=== PATIENT | female | born 1995 | race Caucasian/White ===

== ENCOUNTER 2022-02-23 08:44 | Outpatient (CLI) | payer MEDICAID, SELFPAY ==
[2022-02-23 11:52] LABS: Hepatitis C Virus Antibody* Negative (Negative)
[2022-02-24 15:28] LABS: Rapid Plasma Reagin (RPR) Non Reactive (Non Reactive)
== END 2022-02-23 08:45 | disposition home or self-care (01) ==
PROVIDERS: Visit Provider Advanced Practice Midwife
DX: Z34.83 Encounter for supervision of other normal pregnancy, third trimester (principal)
CPT/HCPCS: 86592; 86803; 86850

== ENCOUNTER 2022-04-23 09:40 | Outpatient (CLI) | payer MEDICAID, SELFPAY ==
--- OUTSIDE RECORDS SUMMARY | 2022-04-23 09:42 | XMS_ITS | Encounter Summary ---
:1995 Author Organization [facility] Address [address] [place] [address] Care Team Providers Name Role Phone Genesis Hampton MD Primary Care Provider Reason for Visit Reason Comments Annual Exam MOLE Encounter Details Date Type Department Care Team Description 03/30/2016 [facility] Hampton, Well adult exam (Primary Dx); Medicine Encounter for surveillance of contracept ba pills; [address] Pap smear for cervical cancer screening; [address] Screen for STD (sexually transmitted dis ease) [place] [address] [place] [phone] [id number] Social History Tobacco Use Types Packs/Day Years Used Date Smoking Tobacco: Former Alcohol Use Standard Drinks/Week Comments Yes 0 (1 standard drink = 0.6 oz pure alcoho l) rarely Alcohol Habits Answer Date Recorded How often do you have a drink containing alcohol? Not asked How many drinks containing alcohol do you have on a typical Not asked day when you are drinking? How often do you have six or more drinks on one occasion? No t asked Comment: rarely 03/16/2016 Sex Assigned at Date Recorded Not on file documented as of this encounter Last Filed Vital Signs Vital Sign Reading Time Taken Comments Blood Pressure 106/68 03/30/2016 10:24 AM CDT Pulse 80 03/30/2016 10:24 AM CDT Temperature - - Respiratory Rate - - Oxygen Saturation - - Inhaled Oxygen Concentration - - Weight 49.9 kg (110 lb) 03/30/2016 10:24 AM CDT Height 166 cm (5' 5.35) 03/30/2016 10:24 AM CDT Body Mass Index 18.11 03/30/2016 10:24 AM CDT documented in this encounter Progress Notes Geensis Hampton MD - 03/30/2016 10:37 AM CDT There are no exam notes on file for this visit. Renetta White is a 20 y.o. y.o.No obstetric history on file. female with Patient's last menstrualperiod was 03/21/2016 (exact date). here for well woman care. We discussed health maintenance issues and reviewed the main causes of mortality for her age group and strategies to reduce those risks. We reviewed risk factorsfor cardiovascular disease and osteoporosis and measures to optimize the reduction of these risks. Also we discussed breast awareness.Questions were answered to her satisfaction. She verbalized her understanding.Recommended Body Mass Index of24: Past History: has a past medical history of Constipation; Allergic rhinitis; and Scoliosis. has past surgical history that includes Cosmetic surgery (2005). family history includes Bipolar Disorder in her father; Cancer in her maternal grandmother; Osteoarthritis in her father and mother. Social History Substance Use Topics ??? Smoking status: Former Smoker ??? Smokeless tobacco: None ??? Alcohol Use: Yes Comment: rarely Allergies:Review of patient's allergies indicates no known allergies. Current medications: has a current medication list which includes the following prescription(s): cetirizine and desogestrel-ethinyl estradiol. ROS: Feeling well. No dyspneaor chest pain on exertion. No abdominal pain, change in bowel habits, black or bloody stools. No urinary tract symptoms. 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 A comprehensive review of system was done and was negative. OBJECTIVE: BP 106/68 mmHg Pulse 80 Ht 5' 5.35 (1.66 m) Wt 110 lb (49.896 kg) BMI 18.11 kg/m2 LMP 03/21/2016 (Exact Date), Estimated body mass index is 18.11 kg/(m^2) as calculated from the following: Height as of this encounter: 5' 5.35 (1.66 m). Weight as of this encounter: 110 lb (49.896 kg). SKIN: warm, elastic, humid. LYMPHATIC SYSTEM: no cervical, supraclavicular, axillary or inguinal abnormal nodes. LUNGS: no retraction, normal percussion,clear to ausculation. BREAST EXAM: normal without suspicious masses, skin or nipple changes or axillary nodes, symmetric fibrous changes in both upper outer quadrants, self- exam is taught and encouraged ABDOMEN: soft, depressible, non tender, no hepatosplenomegaly, no hernias. PELVIC EXAM:External genitalia: Gynecoid escutcheon. Vulva and vagina well estrogenized. Bartholyn's, [place]'s and urethral conduits without lesion or exudation. Speculum exam shows a healthy looking cervix to the naked eye. Noexudation or bleeding observed. Bimanual exam: Cervix closed, firm, non tender to motion. Uterus anterior, firm, regular, mobile, non tender to palpation. No adnexal masses or tenderness. Posterior cul de sac nofullness, no nodulations, no tenderness. LIMBS: no edema. ASSESSMENT: well woman PLAN: Orders Placed This Encounter ??? Pap Test Order ??? desogestrel-ethinyl estradiol (APRI) 0.15-30 MG-MCG tablet pap smear Genesis Hampton MD .................... 03/30/2016 10:37 AM documented in this encounter Plan of Treatment Not on filedocumented as of this encounter Procedures Procedure Name Priority Date/Time Associated Diagnosis Comme nts PAP TEST ORDER Routine 03/30/2016 11:35 Pap smear for Results for this AM CDT cervical cancer procedure ar e in screening the results section. ANATOMICAL PATH Routine 03/30/2016 11:35 Results for this LIQUID BASED AM CDT procedure are i n the results section. CHLAMYDIA & GC (14 Routine 03/30/2016 11:35 Screen for STD Res ults for this YEARS AND OLDER) AM CDT (sexually procedure a re in transmitted disease) the res ults section. documented in this encounter Results Pap Smear (03/30/2016 11:35 AM CDT) Specimen (Source) Anatomical Collection Method Collection Time Re ceived Time Location / / Volume Laterality 03/30/2016 11:35 AM CDT Narrative PN SOFT - 04/04/2016 2:17 PM CDT FINAL GYNECOLOGICAL CYTOLOGY REPORT Pathology #: [id number] ?Date Obtained: 03/30/2016 ? Date Received: 04/03/2016 INTERPRETATION/RESULTS: Negative for Intraepithelial Lesion or M alignancy. SPECIMEN ADEQUACY: Satisfactory for Evaluation. ??No endoce rvical cells/transformation zone component present. Verified on 04/04/2016 ??by ROSE MARIE HALE (electronic signature) CLINICAL NOTES: ?Abnormal bleeding: No, LMP: 8-2 4-16, Menstrual status: None ?Apply, Current form of therapy: None apply LIQUID BASED PAP SMEAR SPECIMEN TYPE: ?ROUTINE CERVICAL PAP TEST PLEASE NOTE: The pap smear is a screening test design ed to aid in the detection of cervical cancer and its pre cursor lesions. It is not a diagnostic procedure and gregor uld not be used as the sole means of detecting cervical cancer. Both false-positive and false-negative report s may occur. Performed at [facility] [address] [place] [address] Genesis Hampton MD LAB_1 Performing Organization Address City/State/ZIP Code Phon e Number PN SOFT [address] [place] [address] Chlamydia and GC STD (03/30/2016 11:35 AM CDT) [facility] Method Time Signature Chlamydia Negative Negative PN SOFT Trachomatis STD Comment: Test Performed by International Student Counselor Mediated Amplification CLIA Number [id number] N. gonorrhoeae STD Negative Negative PN SOFT Comment: Test Performed by International Student Counselor Mediated Amplification Performed at [facility], [address] ??[address] CLIA Number [id number] Source STD Cervix PN SOFT Comment: CLIA Number [id number] Specimen Anatomical Collection Method Collection Time Receive d Time (Source) Location / / Volume Laterality 03/30/2016 11:35 03/30/2016 3:38 AM CDT PM CDT Genesis Hampton MD LAB_1 Performing Organization Address [facility] Phon e Number PN SOFT [address] [place] [address] Pap Test Order (03/30/2016 11:35 AM CDT) Analysis Performed At [facility] Time Signature Pap Smear Collected PN SOFT Monolayer tracking test Specimen Anatomical Collection Method Collection Time Receive d Time (Source) Location / / Volume Laterality 03/30/2016 11:35 04/03/2016 6:00 AM CDT AM CDT Genesis Hampton MD LAB_1 Performing Organization Address [facility] Phon e Number PN SOFT [address] [place] [address] [phone] documented in this encounter Visit Diagnoses Diagnosis Well adult exam - Primary Routine general medical examination at a health care facility Encounter for surveillance of contracept ba pills Surveillance of previously prescribed co ntraceptive pill Pap smear for cervical cancer screening Screening for malignant neoplasm of the cervix Screen for STD (sexually transmitted dis ease) Screening examination for venereal disea se documented in this encounter Care Teams Boiler Out Relationship Specialty Start Date End Date Genesis Hampton MD PCP - General 05/08/12 [address] [place] [address] documented as of this encounter
--- OUTSIDE RECORDS SUMMARY | 2022-04-23 09:42 | XMS_ITS | Encounter Summary ---
:1995 Author Organization [facility] Address [address] [place] [address] Care Team Providers Name Role Phone Alfredo Hampton MD Primary Care Provider Reason for Visit Reason Comments Refill Encounter Details Date Type Department Care Team Description 08/09/2014 Refill [facility] Alfredo Welch MD Refill [address] [place] [address] [place], [place] [address] (Wo rk) Social History Tobacco Use Types Packs/Day Years Used Date Smoking Tobacco: Never Assessed Sex Assigned at Date Recorded Not on file documented as of this encounter Nursing Notes User, Amberly - 08/17/2014 3:48 PM CST APRI 0.15-30 mg-mcg per tablet [Pharmacy Med Name: APRI 28 DAY TABLET] - WARNING: This medication may be for short term use. - REFILL: 3 months (if warnings resolved; manual update required, due to unreadable sig) - RATIONALE: This is a courtesy refill. Patient is overdue for an office visit. This will be the last refill authorized by the protocol. - LAST QUALIFYING VISIT WITH ALFREDO HAMPTON: 06/23/2013 - NEXT SCHEDULED VISIT: None - MEDICATION STARTED: 04/25/2009 - LAST REFILLED ON: 06/23/2013, QTY: 84, Refills: 4, Sig: follow package instructions (changed) Powered by [employer], Reference: [id number], 08/09/2014 12:26:13 AM REHAB NURSE, Pool: PRLK REFILL ([id number]) Yudith Masters - 08/17/2014 3:48 PM CST Appointment letter sent Deb Brizuela, RN - 08/11/2014 4:41 PM CST REFILL APPOINTMENT NEEDED Please call patient and schedule appointment within 30 days. Medication has been renewed and sent to pharmacy for a 90 day supply. Comment: Last qualifying visit 06/23/13. Renewed medication per medication refill protocol. Requested Prescriptions Signed Prescriptions Disp Refills ??? desogestrel-ethinyl estradiol (APRI) 0.15-30 mg-mcg per tablet 84 tablet 0 Sig: Take 1 tablet by mouth daily (every 24 hours). Follow package directions. Authorizing Provider: ALFREDO HAMPTON Ordering User: DEB BRIZUELA B NURSE documented in this encounter Miscellaneous Notes Letter - Alfredo Hampton MD - 08/09/2014 12:00 AM CST Images from the original note were not included. [facility] [address] [facility] [address] Renetta White [address] [place] [address] [place] [address] August 17, 2014 Dear Renetta White, We received your request for the following prescription(s): Orders Placed This Encounter Medications ??? desogestrel-ethinyl estradiol (APRI) 0.15-30 mg-mcg per tablet Sig: Take 1 tablet by mouth daily (every 24 hours). Follow package directions. Dispense: 84 tablet Refill: 0 Your request was approved. You will need an appointment with your provider before your next refill. Please call [facility] at [phone] to schedule an appointment within 30 days. Thank you for choosing [facility] for your health care needs. Your [facility] Primary Care Team B NURSE documented in this encounter Plan of Treatment Not on filedocumented as of this encounter Visit Diagnoses Not on filedocumented in this encounter Care Teams Rail Express Clerk Relationship Specialty Start Date End Date Alfredo Hmapton MD PCP - General 05/08/12 [address] [place] [address] documented as of this encounter
--- OUTSIDE RECORDS SUMMARY | 2022-04-23 09:42 | XMS_ITS | Encounter Summary ---
:1995 Author Organization [facility] Address [address] [place] [address] Care Team Providers Name Role Phone Alfredo Hampton MD Primary Care Provider Reason for Visit Reason Onset Date Comments Refill 08/20/2018 desogestrel-ethinyl estradiol (APRI) 0.15-30 MG-MCG tablet Encounter Details Date Type Department Care Team Description 08/20/2018 [facility] Chris Hampton MD Refill Medicine [address] (desogestrel-ethinyl [address] estradiol (APRI) [place] [address] 0.15-30 MG-MCG tablet) [place], [place] [address] [phone] Social History Tobacco Use Types Packs/Day Years Used Date Smoking Tobacco: Former Smokeless Tobacco: Never Alcohol Use Standard Drinks/Week Comments Yes 1 (1 standard drink = 0.6 oz pure [...] documented as of this encounter Nursing Notes Interface, Out Surescripts Prov Query - 08/20/2018 2:46 PM CST desogestrel-ethinyl estradiol (APRI) 0.15-30 MG-MCG tablet Medication started: 10/07/2012 Last ordered by ALFREDO HAMPTON: 08/17/2018 (3 days ago) QTY: 84, Refills: 0, Sig: take 1 tab by mouth daily. (changed but equivalent) -> A duplicate request was processed on 08/17/2018. -> A courtesy refill was already recommended on 08/17/2018. -> Refill x 3 months (courtesy refill. overdue for an office visit) -> Calculate quantity and refills manually. They could not be estimated due to missing or unreadable information. Last qualifying visit: 07/12/2017 (with ALFREDO HAMPTON) Next scheduled visit: 2018 (in Family Practice) SBP: 110 mm Hg on 07/12/2017 DBP: 56 mm Hg on 07/12/2017 Powered by [employer], Reference: [id number], 08/20/2018 2:46:52 PM Arnaldo MONTES DE OCA: YUN REFILL WIZARD ADMIN ([id number]) TRON BEAM MACHINE WELDER SETTER Birgit Hurtado - 08/20/2018 2:45 PM CST Medications - Refill Request (able to re-order) Name of prescribing clinician: Alfredo Hampton MD Additional comments (related to the above concern): Pt is all out of medication. For this refill, patient would like it filled at the pharmacy listed in Meds & Orders. (Verify the pharmacy patient would like to use for this request is highlighted in blue in Pharmacy Selection under Meds & Orders) If there are questions regarding your request, is it okay to leave a detailed message on your voicemail? Yes (Advise caller that the PN call back number will end with [phone] or unknown) (Advise caller of turn around time is 2 business days for standard refills and 2 to 5 business days for controlled refills) Please route to: Refill Pool (P [id number]) [facility] [address] ONLY (P [id number]) TRON BEAM MACHINE WELDER SETTER documented in this encounter Plan of Treatment Not on filedocumented as of this encounter Visit Diagnoses Diagnosis Encounter for surveillance of contracept ba pills Surveillance of previously prescribed co ntraceptive pill documented in this encounter Care Teams Franchise Consultant Relationship Specialty Start Date End Date Alfredo Hampton MD PCP - General 05/08/12 [address] [place] [address] documented as of this encounter
--- OUTSIDE RECORDS SUMMARY | 2022-04-23 09:42 | XMS_ITS | Clinical Summary ---
:1995 Author Organization [facility] Address [address] [place] [address] Care Team Providers Name Role Phone Genesis Hampton MD Primary Care Provider Source Comments You are receiving this document as you are listed as the primary care provider,follow-up provider, or the patient has been referred to you for consultation.This is in compliance with the Medicare and Medicaid EHR Incentive Program,which states Providers who transition their patient to another setting of careor provider of care or refers their patient to another provider of care shouldprovide summarycare record for each transition of care or referral. [employer] Allergies Active Allergy Reactions Severity Noted Date Comments Nitrofurantoin Hives High 2018 Other Hives High 2018 Falls-MCR; pt mo m reported Medications Medication Sig Dispensed Refills Start Date End Date Status cetirizine (AKA Take 1 tablet by 0 09/21/2010 Active ZYRTEC) 10 MG tablet mouth daily as needed. LW Addl Instr:Indicated for: Allergies APRI 0.15-30 MG-MCG TAKE 1 TABLET BY 84 Tablet 0 10/08/2019 Active tabletIndications: MOUTH EVERY DAY Encounter for surveillance of contraceptive pills Resolved Problems Problem Noted Date Resolved Date Excessive or frequent menstruation 07/18/200907/12 Overview: Menorrhagia Immunizations Name Administration Dates Next Due 4vHPV (Gardasil) 04/03/2011, 11/22/2010, 09/21/2010 DTP 03/19/1994, 01/23/1994, 1993 DTaP 07/15/1996 HepB, Unspecified Formulation 07/15/1996, 1993, 1993 Hib, Unspecified Formulation 03/19/1994, 01/23/1994, 994 MMR 01/17/1995 OPV, Trivalent (Orimune or tOPV) 03/19/1994, 01/23/1994, 06/1994 TDAP (BOOSTRIX) 12/17/2014 Family History Medical History Relation Name Comments Bipolar Disorder Father Osteoarthritis Father back surgery Osteoarthritis Mother scoliosis Cancer Maternal Grandmother Dermatofibr osarcoma Relation Name Status Comments Father Alive Mother Alive Brother 1 Alive biological Brother 2 Alive 1/2 same dad Brother 3 Alive 1/2 same dad Maternal Grandmother Sister 1 Alive step Sister 2 Alive step Sister 3 Alive 1/2 same dad Social History Tobacco Use Types Packs/Day Years [...] Assigned at Date Recorded Not on file Last Filed Vital Signs Vital Sign Reading Time Taken Comments Blood Pressure 115/71 2018 4:11 PM PREPARATION SUPERVISOR CANNING Pulse 96 2018 4:11 PM PREPARATION SUPERVISOR CANNING Temperature 36.2 ??C (97.2 ??F) 09/21/2010 4:22 PM ORAL C: 3 6.2 C PREPARATION SUPERVISOR CANNING Respiratory Rate - - Oxygen Saturation - - Inhaled Oxygen Concentration - - Weight 48.9 kg (107 lb 14.4 2018 4:11 PM oz) PREPARATION SUPERVISOR CANNING Height 165.6 cm (5' 5.2) 2018 4:11 PM PREPARATION SUPERVISOR CANNING Body Mass Index 17.85 2018 4:11 PM PREPARATION SUPERVISOR CANNING Plan of Treatment Health Maintenance Due Date Last Done Comments Hep C Screening (Preventive 1993 Services) COVID-19 Vaccine (#1) 02/25/1994 HIV Screening (Preventive 2009 Services) Adult Preventive Visit 2020 2018, 07/12/2017, 03/30/2016 Pap 2021 2018, 07/12/2017, 03/30/2016, Additional history exists Influenza (#1) 2022 DTaP/Tdap/Td (6 - Tdap) 12/17/2024 12/17/2014, 07/15/1996, 03/19/1994, Additional history exists Zoster/Shingles (1 of 2) 2043 Hib Aged Out 03/19/1994, 01/23/1994, No longe r eligible 1993 based on patient 's age to complete this topic IPV (Polio) Aged Out 03/19/1994, 01/23/1994, No longe r eligible 1993 based on patient 's age to complete this topic HepB Completed 07/15/1996, 1993, 1993 HPV Vaccine Completed 04/03/2011, 11/22/2010, 09/21/2010 HepA Aged Out No longer eligib le based on patient 's age to complete this topic MCV4 Aged Out No longer eligib le based on patient 's age to complete this topic Pneumococcal Aged Out No longer eligib le based on patient 's age to complete this topic Insurance Payer Benefit Plan / Subscriber ID Effective Dates Phone Addre ss Type Group BCBS BCBS OUT OF [id number] 2017-[place] [address] [address] [place] [address] (Home) [place] [address] Renetta White Personal/Family Self [address] ([address]) [place] [phone] [place] (Work) [phone] Care Teams Cargo Services Coordinator Relationship Specialty Start Date End Date Genesis Hampton MD PCP - General 05/08/12 [address] [facility] [place] [phone]
--- OUTSIDE RECORDS SUMMARY | 2022-04-23 09:42 | XMS_ITS | Encounter Summary ---
:1995 Author Organization [facility] Address [address] [place] [address] Care Team Providers Name Role Phone Genesis Hampton MD Primary Care Provider Encounter Details Date Type Department Care Team Description 01/09/2021 emma Ly [phone] Social History Tobacco Use Types Packs/Day Years [...] on file documented as of this encounter Progress Notes FAMILY MEDICINEEMMA PROVIDER - 01/09/2021 12:00 AM CDT emma Treatment Plan Diagnosis Urinary Tract Infection Visit Date January 09, 2021 Renetta Sextone Date of : 89 Provider Jordyn Vang, Nurse Practitioner Note From Provider Oskar Jackson! So sorry to hear you're having symptoms of a bladder infection.?? I've sent a prescription for an antibiotic to your pharmacy. The medication that I prescribed for you should be taken with a full meal twice a day.??Also, remember to drink lots of fluids. We are here for you for any questions or concerns along the way, just Request a Call Back. Feel better soon!?? QUINTON Cobb Treatment Plan Since you have a bacterial infection, let's try an antibiotic. [facility] I've also listed a few of the best ways to soothe your discomfortand some additional self-care tipsto get you on the road to feeling better.If your symptoms don't improve after 3 days, or if you haveq uestions, please select Help to Request a Call Back andwe'll talk about your next steps for free. Order(s) cephalexin 500 mg capsule Take 1 capsule oral every twelve hours as directed for 7 days Note: Refills: None [facility] [address] [place] [address] Treatment Plan Self Care Tip Topics Avoid Caffeine Warm Packs Drink Water What to Expect If you follow the recommendations I made on the Treatment tab, your symptomsshould improve in about 3 days. If your symptoms don'timprove after 3 days, or if you have questions, please select Help toRequest a Call Back and we'll helpdetermine your next step for free. What to Watch Out For Give us a call if you experience: ??? High fever ??? Shaking chills ??? Worsening pain with urination ??? Severe pain in your back, abdomen or pelvis My Conditions, Orders, Allergies as of January 09, 2021 Standard condition list None Current orders cephalexin (cephalexin) Allergies None Layar Information [facility] [employer] We are an online clinic open 18/02. If you have any questions or comments about this visit, please call or email [email or web address]. documented in this encounter Plan of Treatment Not on filedocumented as of this encounter Visit Diagnoses Not on filedocumented in this encounter Care Teams Leach Cell Operator Relationship Specialty Start Date End Date Genesis Hampton MD PCP - General 05/08/12 [address] [place] [address] documented as of this encounter
--- OUTSIDE RECORDS SUMMARY | 2022-04-23 09:42 | XMS_ITS | Encounter Summary ---
:1995 Author Organization [facility] Address [address] [place] [address] Care Team Providers Name Role Phone Genesis [place] MD Primary Care Provider Reason for Visit Reason Comments Annual Exam Encounter Details Date Type Department Care Team Description 12/17/2014 [facility] [place], [facility] adult exam (Primary Dx); Medicine MD Screen for STD (sexually transmitted dis ease); [address] Con traception; [address] Screening cholesterol level; [place] [address] [place], [place] Screening for malignant neop lasm of the cervix; [phone] [id number] Need for Tdap vaccination [phone] (Wo rk) Social History Tobacco Use Types Packs/Day Years Used Date Smoking Tobacco: Never Assessed Sex Assigned at Date Recorded Not on file documented as of this encounter Last Filed Vital Signs Vital Sign Reading Time Taken Comments Blood Pressure 110/78 12/17/2014 10:30 AM CDT Pulse 90 12/17/2014 10:30 AM CDT Temperature - - Respiratory Rate - - Oxygen Saturation - - Inhaled Oxygen Concentration - - Weight 54.4 kg (120 lb) 12/17/2014 10:30 AM CDT Height 164.5 cm (5' 4.75) 12/17/2014 10:30 AM CDT Body Mass Index 20.12 12/17/2014 10:30 AM CDT documented in this encounter Progress Notes Genesis [place] MD - 12/17/2014 12:19 PM CDT Subjective: Renetta White is a 19 y.o. female and is here for a comprehensive physical exam. The patient reports no problems Past Medical History Diagnosis Date ??? Constipation ??? Allergic rhinitis ??? Scoliosis Patient Active Problem List Diagnosis Date Noted ??? Menorrhagia 07/18/2009 Class: Chronic Past Surgical History Procedure Laterality Date ??? Cosmetic surgery face after dog bite Family History Problem Relation Age of Onset ??? Osteoarthritis Mother scoliosis ??? Osteoarthritis Father back surgery ??? Cancer Maternal Grandmother Dermatofibrosarcoma History Social History ??? Marital Status: Single Spouse Name: N/A Number of Children: N/A ??? Years of Education: N/A Social History Main Topics ??? Smoking status: Former Smoker ??? Smokeless tobacco: None ??? Alcohol Use: Yes Comment: rarely ??? Drug Use: No ??? Sexual Activity: Partners: Male Other Topics Concern ??? 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 cetirizine (ZYRTEC) 10 mg tablet Take 1 tablet by mouth daily as needed. LW Addl Instr:Indicatedfor: Allergies PRN ??? desogestrel-ethinyl estradiol (APRI) 0.15-0.03 mg per tablet Take 1 tablet by mouth daily (every24 hours). Follow package directions. 84 tablet 4 No current facility-administered medications for this visit. No Known Allergies History: LMP: Patient's last menstrual period was 12/01/2014. menses are regular Last pap date: first Abnormal pap? no : 0 Para: 0 Do you take any herbs or supplements that were not prescribed by a doctor? no Are you taking calcium supplements? not applicable Are you taking aspirin daily? not applicable Review of Systems Do you have pain that bothers you in your daily life? no A comprehensive review of systems was negative. Objective: Vital Signs: BP 110/78 Pulse 90 Ht 5' 4.75 (1.645 m) Wt 120 lb (54.432 kg) BMI 20.12 kg/m2 LMP 12/01/2014 General Appearance: Alert, cooperative, no distress, appears stated age Head: Normocephalic, without obvious abnormality, atraumatic Eyes: PERRL, conjunctiva/corneas clear, EOM's intact, fundi benign, both eyes Ears: Normal TM's and external ear canals, both ears Nose: Nares normal, septum midline, mucosa normal, no drainage or sinus tenderness Throat: Lips, mucosa, and tongue normal; teeth and gums normal Neck: Supple, symmetrical, trachea midline, no adenopathy; thyroid: no enlargement/tenderness/nodules; no carotid bruit or JVD Back: Symmetric, no curvature, ROM normal, no CVA tenderness Lungs: Clear to auscultation bilaterally, respirations unlabored Chest Wall: No tenderness or deformity Heart: Regular rate and rhythm, S1 and S2 normal, no murmur, rub or gallop Breast Exam: No tenderness, masses, or nipple abnormality Abdomen: Soft, non-tender, bowel sounds active all four quadrants, no masses, no organomegaly Genitalia: Normal female without lesion, discharge or tenderness Rectal: Normal tone, no masses or tenderness; Extremities: Extremities normal, atraumatic, no cyanosis or edema Pulses: 2+ and symmetric all extremities Skin: Skin color, texture, turgor normal, no rashes or lesions Lymph nodes: Cervical, supraclavicular, and axillary nodes normal Neurologic: CNII-XII intact, normal strength, sensation and reflexes throughout Assessment: Healthy female exam. 19 year old first pap and pelvic exam Plan: 1. Diagnosis (ICD9) and Associated Orders ICD-9-CM ICD-10-CM 1. Well adult exam V70.0 Z00.00 2. Screen for STD (sexually transmitted disease) V74.5 Z11.3 Chlamydia and GC STD 3. Contraception V25.9 Z30.9 desogestrel-ethinyl estradiol (APRI) 0.15-0.03 mg per tablet 4. Screening cholesterol level V77.91 Z13.220 Basic Metabolic Panel Cholesterol Fraction-LDLD If Trig High 5. Screening for malignant neoplasm of the cervix V76.2 Z12.4 Pap Smear Order 2. Patient Counseling: --Nutrition: Stressed importance of moderation in sodium/caffeine intake, saturated fat and cholesterol, caloric balance, sufficient intake of fresh fruits, vegetables, fiber, calcium, iron, and 1 mg of folate supplement per day (for females capable of ). --Exercise: Stressed the importance of regular exercise. --Substance Abuse: Discussed cessation/primary prevention of tobacco, alcohol, or other drug use; driving or other dangerous activities under the influence; availability of treatment for abuse. --Sexuality: Discussed sexually transmitted diseases, partner selection, use of condoms, avoidance of unintended and contraceptive alternatives. --Injury prevention: Discussed safety belts, --Dental health: Discussed importance of regular tooth brushing, flossing, and dental visits. --Immunizations reviewed. 3. Follow up in one year documented in this encounter Plan of Treatment Not on filedocumented as of this encounter Procedures Procedure Name Priority Date/Time Associated Diagnosis Comme nts ANATOMICAL PATH Routine 12/17/2014 11:35 Results for this LIQUID BASED AM CDT procedure are i n the results section. PAP SMEAR ORDER Routine 12/17/2014 11:35 Screening for Results for this AM CDT malignant neoplasm procedure are in of the cervix the results section. CHLAMYDIA & GC (14 Routine 12/17/2014 11:35 Screen for STD Res ults for this YEARS AND OLDER) AM CDT (sexually procedure a re in transmitted disease) the res ults section. documented in this encounter Results Chlamydia & GC (12/17/2014 11:35 AM CDT) [facility] gist Method Time Signature Chlamydia Negative Negative HP CONVERSION Trachomatis STD Comment: Test Performed by Technician Inventory Specialist Mediated Amplification CLIA Number [id number] N. gonorrhoeae STD Negative Negative HP CONVERSI ON Comment: Test Performed by Technician Inventory Specialist Mediated Amplification Performed at [facility], [address] [place] [address] ??[address] CLIA Number [id number] Source STD Cervix HP CONVERSION Comment: CLIA Number [id number] Specimen Anatomical Collection Method Collection Time Receive d Time (Source) Location / / Volume Laterality 12/17/2014 11:35 12/17/2014 3:34 AM CDT PM CDT Genesis [place] MD LAB_1 Performing Organization Address City/State/ZIP Code Phon e Number HP CONVERSION Pap Smear (12/17/2014 11:35 AM CDT) Specimen (Source) Anatomical Collection Method Collection Time Re ceived Time Location / / Volume Laterality 12/17/2014 11:35 AM CDT Narrative HP CONVERSION - 12/24/2014 3:25 PM CDT Performed at [facility], [address] [place] [address] FINAL GYNECOLOGICAL CYTOLOGY REPORT Pathology #: [id number] ?Date Obtained: 12/17/2014 ? Date Received: 12/21/2014 INTERPRETATION/RESULTS: Negative for Intraepithelial Lesion or M alignancy. SPECIMEN ADEQUACY: Satisfactory for Evaluation. ??Endocervi guru cells/transformation zone component present. Verified on 12/24/2014 ??by MINIE BACCAM , CT(ASCP) (electronic signature) CLINICAL NOTES: ?Abnormal bleeding: No, LMP: 5-6 -15, Hormonal TX: Yes LIQUID BASED PAP SMEAR SPECIMEN TYPE: ?CERVICAL PAP ONLY PLEASE NOTE: The pap smear is a screening test design ed to aid in the detection of cervical cancer and its pre cursor lesions. It is not a diagnostic procedure and gregor uld not be used as the sole means of detecting cervical cancer. Both false-positive and false-negative report s may occur. ? End of Report Genesis [place] MD LAB_1 Performing Organization Address City/[facility] [[email or web address]] Code Phon e Number HP CONVERSION Pap Smear Order (12/17/2014 11:35 AM CDT) [facility] Method Time Signature Pap Smear Collected HP CONVERSION Monolayer tracking test Specimen Anatomical Collection Method Collection Time Receive d Time (Source) Location / / Volume Laterality 12/17/2014 11:35 12/21/2014 4:51 AM CDT AM CDT Narrative HP CONVERSION - 12/24/2014 3:21 PM CDT Performed at [facility], [facility] [place] [address] Genesis [place] MD LAB_1 Performing Organization Address City/State/ZIP Code Phon e Number HP CONVERSION documented in this encounter Visit Diagnoses Diagnosis Well adult exam - Primary Routine general medical examination at a health care facility Screen for STD (sexually transmitted dis ease) Screening examination for venereal disea se Contraception Unspecified contraceptive management Screening cholesterol level Screening for lipoid disorders Screening for malignant neoplasm of the cervix Need for Tdap vaccination Need for prophylactic vaccination with c ombined hbqbeedduq-[id number]-hkbaflwfz (DTP) vaccine documented in this encounter Care Teams Cytology Laboratory Manager Relationship Specialty Start Date End Date Genesis [place] MD PCP - General 05/08/12 [address] [place] [address] documented as of this encounter
--- OUTSIDE RECORDS SUMMARY | 2022-04-23 09:42 | XMS_ITS | Encounter Summary ---
:1995 Author Organization [facility] Address [address] [place] [address] Care Team Providers Name Role Phone Genesis [place] MD Primary Care Provider Reason for Visit Reason Comments Annual Exam Not Fasting Other New Partner Encounter Details Date Type Department Care Team Description 07/12/2017 [facility] [place], [facility] adult exam (Primary Dx); Medicine Encounter for surveillance of contracept ba pills; [address] Pap smear for cervical cancer screening; [address] Screen for STD (sexually transmitted dis ease) [place] [address] [place], [place] [phone] [address] Social History Tobacco Use Types Packs/Day Years [...] Sign Reading Time Taken Comments Blood Pressure 110/56 07/12/2017 1:10 PM ROUNDING MACHINE TENDER Pulse 60 07/12/2017 1:10 PM ROUNDING MACHINE TENDER Temperature - - Respiratory Rate - - Oxygen Saturation - - Inhaled Oxygen Concentration - - Weight 49.9 kg (110 lb) 07/12/2017 1:10 PM ROUNDING MACHINE TENDER Height 166.4 cm (5' 5.5) 07/12/2017 1:10 PM ROUNDING MACHINE TENDER Body Mass Index 18.03 07/12/2017 1:10 PM ROUNDING MACHINE TENDER documented in this encounter Progress Notes Nhung Figueroa RN - 07/31/2017 2:01 PM CST Dear Renetta, I am writing to let you know that your PAP result is negative. This means that your test result was normal. No cancer or pre-cancerous cells were seen. Based on current cervical cancer screening recommendations, your next PAP should be in 3 years. Continue to schedule your annual preventive exams for your overall health. If you have questions about cervical cancer screening or your test results, call [phone]. Sincerely, Nhung Figueroa RN on behalf of Dr. Dory Edwards, Computer Mechanic [facility] Cervical Cancer Screening and Management DING MACHINE TENDER Genesis [place] MD - 07/12/2017 1:15 PM CST Subjective: Renetta White is a 21 y.o. female and is here for a comprehensive physical exam. The patient reports no problems Past Medical History: Diagnosis Date ??? Allergic rhinitis ??? Constipation ??? Scoliosis Patient Active Problem List Diagnosis Date Noted ??? Excessive or frequent menstruation 07/18/2009 Overview Note: Menorrhagia Past Surgical History: Procedure Laterality Date ??? COSMETIC SURGERY 2006 face after dog bite Family History Problem Relation Age of Onset ??? Osteoarthritis Mother scoliosis ??? Osteoarthritis Father back surgery ??? Bipolar Disorder Father ??? Cancer Maternal Grandmother Dermatofibrosarcoma Social History Social History ??? Marital status: Single Spouse name: N/A ??? Number of children: N/A ??? Years of education: N/A Social History Main Topics ??? Smoking status: Former Smoker ??? Smokeless tobacco: Never Used ??? Alcohol use 0.6 oz/week 1 Cans of beer per week Comment: rarely ??? Drug use: No ??? Sexual activity: Yes Partners: Male Other Topics Concern ??? 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 cetirizine (AKA ZYRTEC) 10 MG tablet Take 1 tablet by mouth daily as needed. LW Addl Instr:Indicated for: Allergies PRN ??? desogestrel-ethinyl estradiol (APRI) 0.15-30 MG-MCG tablet Take 1 Tab by mouth daily. 84 Tab 4 No current facility-administered medications for this visit. No Known Allergies History: LMP: Patient's last menstrual period was 06/18/2017 (exact date). Last pap date: 2015 Abnormal pap? no : 0 Para: 0 Do you take any herbs or supplements that were not prescribed by a doctor? no Are you taking calcium supplements? With diet Are you taking aspirin daily? not applicable Review of Systems Do you have pain that bothers you in your daily life? no A comprehensive review of systems was negative. Objective: Vital Signs: BP 110/56 Pulse 60 Ht 5' 5.5 (1.664 m) Wt 110 lb (49.9 kg) LMP 06/18/2017 (Exact Date) BMI 18.03 kg/m2 Eyes: PERRLA, full EOM. Ears: Normal pinnae, clear canals,TM's with no redness or bulging. Nose: Patent, without deformity. Throat: Moist mucous membranes without lesions, erythema, or exudate. Neck: Supple, without masses, lymphadenopathy or tenderness. Cardiovascular: Regular S1 and S2 with no murmurs rubs gallops, no carotid bruits and good pulses inall 4 extremities Respiratory: Clear to auscultation, nonlabored with no rhonchi or wheezing Abdomen: Abdomen was soft, nontender with no palpable masses or organomegaly Musculoskeletal: No deformities were notedt. No peripheral edema Neurologic: Cranial nerves II through XII are intact, deep tendon reflexes were 2 out of 4 in all 4 extremities Psychiatric: Alert and oriented ??3, normal affect Dermatologic: No worrisome rashes or lesions Breast: No palpable masses, no axillary supraclavicular nodes, no nipple discharge and no dermatologic changes : Normal external genitalia, normal cervical and vaginal mucosa with no adnexal masses Rectal: No evidence for fissures or hemorrhoids Assessment: Healthy female exam. 21 year old Declined a flu shot Plan: 1. ICD-10-CM 1. Well adult exam Z00.00 2. Encounter for surveillance of contraceptive pills Z30.41 desogestrel-ethinyl estradiol (APRI) 0.15-30 MG-MCG tablet 3. Pap smear for cervical cancer screening Z12.4 Pap Test Order 2. Patient Counseling: --Nutrition: Stressed importance of moderation in sodium/caffeine intake, saturated fat and cholesterol, caloric balance, sufficient intake of fresh fruits, vegetables, fiber, calcium, iron, and 1 mg of folate supplement per day (for females capable of ). --Discussed the issue of , calcium supplement, and the daily use of baby aspirin. --Exercise: Stressed the importance of regular exercise. --Substance Abuse: Discussed --Sexuality: Discussed --Injury prevention: Discussed safety belts, --Dental health: Discussed importance of regular tooth brushing, flossing, and dental visits. --Immunizations reviewed. 3. Follow up in one year DING MACHINE TENDER documented in this encounter Plan of Treatment Not on filedocumented as of this encounter Procedures Procedure Name Priority Date/Time Associated Diagnosis Comme nts PAP TEST ORDER Routine 07/12/2017 3:17 PM Pap smear for Result s for this ROUNDING MACHINE TENDER cervical cancer procedure ar e in screening the results section. ANATOMICAL PATH Routine 07/12/2017 3:17 PM Result s for this LIQUID BASED ROUNDING MACHINE TENDER procedure are i n the results section. CHLAMYDIA & GC (14 Routine 07/12/2017 3:17 PM Screen for STD R esults for this YEARS AND OLDER) ROUNDING MACHINE TENDER (sexually procedure a re in transmitted disease) the res ults section. documented in this encounter Results Pap Smear (07/12/2017 3:17 PM ROUNDING MACHINE TENDER) Specimen (Source) Anatomical Collection Method Collection Time Re ceived Time Location / / Volume Laterality 07/12/2017 3:17 PM ROUNDING MACHINE TENDER Narrative PN SOFT - 07/16/2017 12:01 PM ROUNDING MACHINE TENDER FINAL GYNECOLOGICAL CYTOLOGY REPORT Pathology #: [id number] ?Date Obtained: 07/12/2017 ? Date Received: 07/15/2017 INTERPRETATION/RESULTS: Negative for Intraepithelial Lesion or M alignancy. SPECIMEN ADEQUACY: Satisfactory for Evaluation. ??Endocervi guru cells/transformation zone component present. Verified on 07/16/2017 ??by KRYSTLE ERWIN CT(ASCP) (electronic signature) CLINICAL NOTES: ?Abnormal bleeding: No, LMP: 11- 21-17, Menstrual status: None ?Apply, Current form of [...] false-negative report s may occur. [place] [address] Genesis [place] MD LAB_1 Performing Organization Address [facility] Phon e Number PN SOFT [address] [place] [address] Chlamydia and GC STD (07/12/2017 3:17 PM ROUNDING MACHINE TENDER) [facility] Method Time Signature Chlamydia Negative Negative PN SOFT Trachomatis STD Comment: Test Performed by Adhesive Bandage Making Operator Mediated Amplification CLIA Number [id number] N. gonorrhoeae STD Negative Negative PN SOFT Comment: Test Performed by Adhesive Bandage Making Operator Mediated Amplification Performed at [facility], [address] [place] [address] CLIA Number [id number] Source STD Cervix PN SOFT Comment: CLIA Number [id number] Specimen Anatomical Collection Method Collection Time Receive d Time (Source) Location / / Volume Laterality 07/12/2017 3:17 PM 7 9:09 ROUNDING MACHINE TENDER PM ROUNDING MACHINE TENDER Genesis [place] MD LAB_1 Performing Organization Address [facility] Phon e Number PN SOFT [address] [place] [address] Pap Test Order (07/12/2017 3:17 PM ROUNDING MACHINE TENDER) Analysis Performed At Patho logist Time Signature Pap Smear Collected PN SOFT Monolayer tracking test Specimen Anatomical Collection Method Collection Time Receive d Time (Source) Location / / Volume Laterality 07/12/2017 3:17 PM 7 ROUNDING MACHINE TENDER 10:26 PM ROUNDING MACHINE TENDER Narrative PN SOFT - 07/12/2017 3:17 PM ROUNDING MACHINE TENDER Performed at [facility], [address] [place] [address] CLIA number [id number] Genesis [place] MD LAB_1 Performing Organization Address City/State/ZIP Code Phon e Number PN SOFT [address] [place] [address] documented in this encounter Visit Diagnoses Diagnosis [...] se documented in this encounter Care Teams Peripheral Vascular Tech Relationship Specialty Start Date End Date Genesis [place] MD PCP - General 05/08/12 [address] [place] [address] documented as of this encounter
--- OUTSIDE RECORDS SUMMARY | 2022-04-23 09:42 | XMS_ITS | Encounter Summary ---
:1995 Author Organization [facility] Address [address] [place] [address] Care Team Providers Name Role Phone Alfredo [place] MD Primary Care Provider Reason for Visit Reason Comments Refill APRI 0.15-30 MG-MCG tablet [ Pharmacy Med Name: APRI 28 DAY TABLET] Encounter Details Date Type Department Care Team Description 08/17/2018 [facility] [place] MD Refill (APRI 0.15-30 Medicine [address] MG-MCG tablet [Pharmacy [address] Med Name: APRI 28 [place] [address] TABLET]) [place] [address] [phone] Social History Tobacco Use Types Packs/Day Years [...] documented as of this encounter Nursing Notes Nereyda Willis R - 08/22/2018 12:07 PM CST Patient has appointment on 2018. Closing encounter. MER PURIFICATION OPERATOR Candi Mcknight, RN - 08/17/2018 6:04 PM CST OFFICE APPOINTMENT NEEDED Please notify patient to schedule an appointment within 30 days. Requested Prescriptions Pending Prescriptions Disp Refills ??? APRI 0.15-30 MG-MCG tablet [Pharmacy Med Name: APRI 28 DAY TABLET] 84 Tablet Sig: TAKE 1 TAB BY MOUTH DAILY. MER PURIFICATION OPERATOR Interface, Out Surescripts Prov Query - 08/17/2018 10:33 AM CST APRI 0.15-30 MG-MCG tablet [Pharmacy Med Name: APRI 28 DAY TABLET] Medication started: 10/07/2012 Last ordered by ALFREDO HAMPTON M: 07/12/2017 (401 days ago) QTY: 84, Refills: 4, Sig: take 1 tab bymouth daily. (unchanged) -> Refill x 3 months (courtesy refill. overdue for an office visit) -> Calculate quantity and refills manually. They could not be estimated due to missing or unreadable information. Last qualifying visit: 07/12/2017 (with ALFREDO H[place]PTON) Next scheduled visit: None SBP: 110 mm Hg on 07/12/2017 DBP: 56 mm Hg on 07/12/2017 Powered by [email or web address], Reference: [id number], 08/17/2018 10:33:36 AM FALGUNI, Pool: JEFE REFILL ([id number]) MER PURIFICATION OPERATOR documented in this encounter Plan of Treatment Not on filedocumented as of this encounter Visit Diagnoses Diagnosis Encounter for surveillance of contracept ba pills Surveillance of previously prescribed co ntraceptive pill documented in this encounter Care Teams Undercoat Sprayer Relationship Specialty Start Date End Date Alfredo [place] MD PCP - General 05/08/12 [address] [place] [address] documented as of this encounter
--- OUTSIDE RECORDS SUMMARY | 2022-04-23 09:42 | XMS_ITS | Encounter Summary ---
:1995 Author Organization [facility] Address [address] [place] [address] Care Team Providers Name Role Phone Alfredo Hampton MD Primary Care Provider Reason for Visit Reason Comments Refill APRI 0.15-30 MG-MCG tablet [ Pharmacy Med Name: APRI 28 DAY TABLET] Encounter Details Date Type Department Care Team Description 10/08/2019 Refill [place] [facility] Chris Hampton MD Refill (APRI 0.15-30 Medicine [address] MG-MCG tablet [Pharmacy [address] Med Name: APRI [address] [place] [address] TABLET]) [place] [address] [phone] Social History Tobacco Use Types Packs/Day Years [...] documented as of this encounter Nursing Notes Leora Grey RN - 10/08/2019 8:50 AM CDT OFFICE APPOINTMENT NEEDED Please notify patient to schedule an appointment within 30 days. Requested Prescriptions Pending Prescriptions Disp Refills APRI 0.15-30 MG-MCG tablet [Pharmacy Med Name: APRI 28 DAY TABLET] 84 Tablet 0 Sig: TAKE 1 TABLET BY MOUTH EVERY DAY Interface, Out [employer] Prov Query - 10/08/2019 4:38 AM CDT APRI 0.15-30 MG-MCG tablet [Pharmacy Med Name: APRI 28 DAY TABLET] Medication started: 08/11/2014 Last ordered by ALFREDO HAMPTON M: 11/15/2018 (327 days ago) QTY: 84, Refills: 3, Sig: take 1 tabletby mouth daily. (changed but equivalent) -> Refill x 3 months (courtesy refill. overdue for an office visit) -> Calculate the quantity and number of refills manually. Last qualifying visit: 2018 (with ALFREDO HAMPTON) Next scheduled visit: None SBP: 115 mm Hg on 2018 DBP: 71 mm Hg on 2018 Powered by [employer], Reference: [id number], 10/08/2019 4:38:47 AM CDT, Pool: EDENK REFILL ([id number]) documented in this encounter Plan of Treatment Not on filedocumented as of this encounter Visit Diagnoses Diagnosis Encounter for surveillance of contracept ba pills Surveillance of previously prescribed co ntraceptive pill documented in this encounter Care Teams Time Clock Mechanic Relationship Specialty Start Date End Date Alfredo Hampton MD PCP - General 05/08/12 [address] [place] [address] documented as of this encounter
--- OUTSIDE RECORDS SUMMARY | 2022-04-23 09:42 | XMS_ITS | Encounter Summary ---
:1995 Author Organization [facility] Address [address] [place] [address] Care Team Providers Name Role Phone Alfredo Hampton MD Primary Care Provider Reason for Visit Reason Comments Refill APRI 0.15-30 MG-MCG tablet [ Pharmacy Med Name: APRI 28 DAY TABLET] Encounter Details Date Type Department Care Team Description 04/18/[facility] Refill (APRI 0.15-30 Medicine [address] MG-MCG tablet [Pharmacy [address] Med Name: APRI 28 DAY SE [place] [address] TABLET]) [place] [address] [phone] Social History Tobacco Use Types Packs/Day Years [...] documented as of this encounter Nursing Notes María Hayward - 04/22/2017 4:29 PM CDT PRINTED letter and sent Chapis Johnson RN - 04/20/2017 8:10 PM CDT OFFICE APPOINTMENT NEEDED Please notify patient to schedule an appointment within 30 days. Requested Prescriptions Signed Prescriptions Disp Refills ??? desogestrel-ethinyl estradiol (APRI) 0.15-30 MG-MCG tablet 84 Tab 0 Sig: Take 1 Tab by mouth daily. Authorizing Provider: ALFREDO HAMPTON Ordering User: CHAPIS JOHNSON Interface, Out [employer] Prov Query - 04/18/2017 1:01 AM CDT APRI 0.15-30 MG-MCG tablet [Pharmacy Med Name: APRI 28 DAY TABLET] Medication started: 11/03/2011 Last ordered by ALFREDO HAMPTON: 03/30/2016 (384 days ago) QTY: 84, Refills: 4, Sig: take 1 tab bymouth daily. indications: pn: (changed) -> This medication may not have been authorized by the requested provider. -> The requested sig has changed from the last order. -> Refill x 3 months (courtesy refill. overdue for an office visit) -> Calculate quantity and refills manually. They could not be estimated due to missing or unreadable information. Last qualifying visit: 03/30/2016 (with ALFREDO HAMPTON) Next scheduled visit: None SBP: 106 mm Hg on 03/30/2016 DBP: 68 mm Hg on 03/30/2016 Powered by [employer], Reference: [id number], 04/18/2017 1:01:24 AM CDT, Pool: PRLK REFILL ([id number]) documented in this encounter Plan of Treatment Not on filedocumented as of this encounter Visit Diagnoses Diagnosis Encounter for surveillance of contracept ba pills Surveillance of previously prescribed co ntraceptive pill documented in this encounter Care Teams Meatcutter Relationship Specialty Start Date End Date Alfredo Hampton MD PCP - General 05/08/12 [address] [place] [address] documented as of this encounter
--- OUTSIDE RECORDS SUMMARY | 2022-04-23 09:42 | XMS_ITS | Encounter Summary ---
:1995 Author Organization [facility] Address [address] [place] [address] Care Team Providers Name Role Phone Genesis Hampton MD Primary Care Provider Reason for Visit Reason Comments Annual Exam nonfasting Encounter Details Date Type Department Care Team Description 2018 [facility] Genesis Hampton, Carmen al physical exam (Primary Dx); Medicine Screening for cervical cancer; [address] eening for STDs (sexually transmitted diseases); [address] Encounter for surveillance [place] [address] [place] [phone] [address] Social History Tobacco Use Types Packs/Day Years [...] Comments Blood Pressure 115/71 2018 4:11 PM ASSEMBLY HAND Pulse 96 2018 4:11 PM ASSEMBLY HAND Temperature - - Respiratory Rate - - Oxygen Saturation - - Inhaled Oxygen Concentration - - Weight 48.9 kg (107 lb 14.4 oz) 2018 4:11 PM ASSEMBLY HAND Height 165.6 cm (5' 5.2) 2018 4:11 PM ASSEMBLY HAND Body Mass Index 17.85 2018 4:11 PM ASSEMBLY HAND documented in this encounter Progress Notes Genesis Hampton MD - 2018 4:30 PM CST Subjective: Renetta White is a 23 y.o. female and is here for a comprehensive physical exam. The patient reports no problems Past Medical History: Diagnosis Date ??? Allergic rhinitis ??? Constipation ??? Scoliosis There are no active problems to display for this patient. Past Surgical History: Procedure Laterality Date ??? COSMETIC SURGERY 2006 face after dog bite Family History Problem Relation Age of Onset ??? Osteoarthritis Mother scoliosis ??? Osteoarthritis Father back surgery ??? Bipolar Disorder Father ??? Cancer Maternal Grandmother Dermatofibrosarcoma Social History Socioeconomic History ??? Marital status: Single Spouse name: Not on file ??? Number of children: Not on file ??? Years of education: Not on file ??? Highest education level: Not on file Social Needs ??? Financial resource strain: Not on file ??? Food insecurity - worry: Not on file ??? Food insecurity - inability: Not on file ??? Transportation needs - medical: Not on file ??? Transportation needs - non-medical: Not on file Occupational History ??? Not on file Tobacco Use ??? Smoking status: Former Smoker ??? Smokeless tobacco: Never Used Substance and Sexual Activity ??? Alcohol use: Yes Alcohol/week: 0.6 oz Types: 1 Cans of beer per week Comment: rarely ??? Drug use: No ??? Sexual activity: Yes Partners: Male Other Topics Concern ??? Bike Helmet Not Asked ??? City Water Not Asked ??? Exercise Not Asked ??? Guns in home Not Asked ??? Seat Belt Not Asked ??? Special Diet Not Asked ??? 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 APRI 0.15-30 MG-MCG tablet TAKE 1 TAB BY MOUTH DAILY. 84 Tablet 0 ??? cetirizine (AKA ZYRTEC) 10 MG tablet Take 1 tablet by mouth daily as needed. LW Addl Instr:Indicated for: Allergies PRN No current facility-administered medications for this visit. Allergies Allergen Reactions ??? Nitrofurantoin Hives ??? Other Hives [place]-MCR; pt mom reported History: LMP: Patient's last menstrual period was 08/20/2018 (exact date). Last pap date: Abnormal pap? no : 0 Para: 0 Do you take any herbs or supplements that were not prescribed by a doctor? no Are you taking calcium supplements? diet Are you taking aspirin daily? not applicable Review of Systems Do you have pain that bothers you in your daily life? no A comprehensive review of systems was negative. Objective: Vital Signs: BP 115/71 (BP Location: Right Arm, BP Cuff Size: Adult Regular) Pulse 96 Ht 5' 5.2(1.656 m) Wt 107 lb 14.4 oz (48.9 kg) LMP 08/20/2018 (Exact Date) BMI 17.85 kg/m?? Eyes: PERRLA, full EOM. Ears: Normal pinnae, [...] fissures or hemorrhoids Assessment: Healthy female exam. 23 year old Mammogram na Colonoscopy na Dexa na Plan: 1. ICD-10-CM 1. Annual physical exam Z00.00 2. Screening for cervical cancer Z12.4 Pap Test Order 3. Screening for STDs (sexually transmitted diseases) Z11.3 Chlamydia and GC STD 4. Encounter for surveillance of contraceptive pills Z30.41 desogestrel-ethinyl estradiol (APRI) 0.15-30 MG-MCG tablet 2. Patient Counseling: --Nutrition: Stressed importance of moderation in sodium/caffeine intake, saturated fat and cholesterol, caloric balance, sufficient intake of fresh fruits, vegetables, fiber, calcium, iron, and 1 mg of folate supplement per day (for females capable of ). --Discussed the issue of calcium supplement, --Exercise: Stressed the importance of regular exercise. [...] brushing, flossing, and dental visits. --Immunizations reviewed. Declined a flu shot 3. Follow up in one year MBLY HAND Myrna Krishna RN - 2018 4:30 PM CST Dear Renetta, I am writing [...] cancer screening or your test results, call [phone]. Sincerely, Myrna Krishna RN on behalf of Dr. Dory Edwards, Echocardiography Radiology Technologist [facility] Cervical Cancer Screening and Management MBLY HAND documented in this encounter Plan of Treatment Not on filedocumented as of this encounter Procedures Procedure Name Priority Date/Time Associated Diagnosis Comme nts PAP TEST ORDER Routine 2018 4:48 PM Screening for Result s for this ASSEMBLY HAND cervical cancer procedure ar e in the results section. ANATOMICAL PATH Routine 2018 4:48 PM Result s for this LIQUID BASED ASSEMBLY HAND procedure are i n the results section. CHLAMYDIA & GC (14 Routine 2018 4:[address] Ds Results for this YEARS AND OLDER) ASSEMBLY HAND (sexually procedure a re in transmitted the results diseases) section. documented in this encounter Results Pap Smear (2018 4:48 PM ASSEMBLY HAND) Specimen (Source) Anatomical Collection Method Collection Time Re ceived Time Location / / Volume Laterality 2018 4:48 PM ASSEMBLY HAND Narrative PN SOFT - 08/30/2018 11:40 AM ASSEMBLY HAND FINAL GYNECOLOGICAL CYTOLOGY REPORT Pathology #: [id number] ?Date Obtained: 2018 ? Date Received: 08/29/2018 INTERPRETATION/RESULTS: Negative for Intraepithelial Lesion or M alignancy. SPECIMEN ADEQUACY: Satisfactory for Evaluation. ??Endocervi guru cells/transformation zone component present. Verified on 08/30/2018 ??by LUCAS MEHTA(ASCP) (electronic signature) CLINICAL NOTES: ?Abnormal bleeding: No, LMP: 1/2 10/14, Menstrual status: None ?Apply, Current form of therapy: Hormone Therapy LIQUID BASED PAP SMEAR SPECIMEN TYPE: ?ROUTINE [...] false-negative report s may occur. Performed at [facility], [facility] [place] [address] Genesis Hampton MD LAB_1 Performing Organization Address City/State/ZIP Code Phon e Number PN SOFT [address] [place] [address] Chlamydia and GC STD (2018 4:48 PM ASSEMBLY HAND) Patholo gist Method Time Signature Chlamydia Negative Negative PN SOFT Trachomatis STD Comment: Test Performed by [facility] CLIA Number [id number] N. gonorrhoeae STD Negative Negative PN SOFT Comment: Test Performed by [facility] Performed at [facility], [address] ??[address] CLIA Number [id number] Source STD Cervix PN SOFT Comment: CLIA Number [id number] Specimen Anatomical Collection Method Collection Time Receive d Time (Source) Location / / Volume Laterality 2018 4:48 PM 9 9:10 ASSEMBLY HAND PM ASSEMBLY HAND Genesis Hampton MD LAB_1 Performing Organization Address City/[facility] Phon e Number PN SOFT [address] [place] [address] Pap Test Order (2018 4:48 PM ASSEMBLY HAND) Analysis Performed At [facility] logist Time Signature Pap Smear Collected PN SOFT Monolayer tracking test Specimen Anatomical Collection Method Collection Time Receive d Time (Source) Location / / Volume Laterality 2018 4:48 PM 9 3:18 ASSEMBLY HAND AM ASSEMBLY HAND Narrative PN SOFT - 2018 4:49 PM ASSEMBLY HAND Performed at [address] [address] CLIA number [id number] Genesis Hampton MD LAB_1 Performing Organization Address City/[facility] Phon e Number PN SOFT [address] [place] [address] documented in this encounter Visit Diagnoses Diagnosis Annual physical exam - Primary Routine general medical examination at a health care facility Screening for cervical cancer Screening for malignant neoplasm of the cervix Screening for STDs (sexually transmitted diseases) Screening examination for venereal disea se Encounter for surveillance of contracept ba pills Surveillance of previously prescribed co ntraceptive pill documented in this encounter Care Teams Cooker Soda Relationship Specialty Start Date End Date Genesis Hampton MD PCP - General 05/08/12 [address] [place] [address] documented as of this encounter
--- OUTSIDE RECORDS SUMMARY | 2022-04-23 09:42 | XMS_ITS | Encounter Summary ---
:1995 Author Organization [facility] Address [address] [place] [address] Care Team Providers Name Role Phone Genesis Hampton MD Primary Care Provider Encounter Details Date Type Department Care Team Description 12/17/2014 Lab Visit [facility] Screening cholesterol level [address] [place] [address] Social History Tobacco Use Types Packs/Day Years Used Date Smoking Tobacco: Never Assessed Sex Assigned at Date Recorded Not on file documented as of this encounter Plan of Treatment Not on filedocumented as of this encounter Procedures Procedure Name Priority Date/Time Associated Diagnosis Comme nts LIPID PANEL AND Routine 12/17/2014 11:32 AM Screening Resul ts for this DIRECT LDL(IF CDT cholesterol level procedure are in NEEDED) the results section. BASIC METABOLIC Routine 12/17/2014 11:32 AM Screening Resul ts for this PANEL CDT cholesterol level procedure are in the results section. documented in this encounter Results Lipid Panel and Direct LDL(If Needed) (12/17/2014 11:32 AM CDT) [facility] gist Method Time Signature Cholesterol 135 0 - 200 HP CONVERSION mg/dL Triglycerides 123 0 - 149 HP CONVERSION mg/dL HDL Cholesterol 50 >39 mg/dL HP CONVERSION Cholesterol/HDL 2.7 HP CONVERSION Ratio Screen LDL Calculated 60 19 - 130 HP CONVERSION mg/dL Length Of Fast 2.0 HP CONVERSION Specimen Anatomical Collection Method Collection Time Receive d Time (Source) Location / / Volume Laterality 12/17/2014 11:32 12/17/2014 2:52 AM CDT PM CDT Narrative HP CONVERSION - 12/17/2014 3:32 PM CDT Performed at [facility], [address] [place] [address] Genesis Hampton MD LAB_1 Performing Organization Address [facility] Phon e Number HP CONVERSION Basic Metabolic Panel (12/17/2014 11:32 AM CDT) athologist Signature Creatinine Serum 0.6 0.4 - 1.3 HP CONVERSION mg/dL Lab Glucose 93 60 - 100 HP CONVERSION mg/dL Bicarbonate 27 23 - 33 HP CONVERSION mmol/L Chloride 106 98 - 110 HP CONVERSION mEq/L Potassium 3.8 3.5 - 5.2 HP CONVERSION mEq/L Sodium 138 137 - 147 HP CONVERSION mEq/L Blood Urea <10 5 - 26 HP CONVERSION Nitrogen mg/dL Calcium 9.8 8.5 - 10.5 HP CONVERSION mg/dL Est GFR >60 >60 HP CONVERSION Am mL/min/1.7 3m2 Est GFR Non-Afr >60 >60 HP CONVERSION Am mL/min/1.7 3m2 Comment: Normal>60, moderate decrease 30 - 59, se kia decrease 15 - 29, renal failure <15 mL/min/1.73 m2 NOTE: ??Choose the eGFR result above kaylynn ropriate for the race of the patient. Specimen Anatomical Collection Method Collection Time Receive d Time (Source) Location / / Volume Laterality 12/17/2014 11:32 12/17/2014 2:52 AM CDT PM CDT Narrative HP CONVERSION - 12/17/2014 3:32 PM CDT Performed at [facility], [address] [place] [address] Genesis Hampton MD LAB_1 Performing Organization Address [facility] Phon e Number HP CONVERSION documented in this encounter Visit Diagnoses Diagnosis Screening cholesterol level Screening for lipoid disorders documented in this encounter Care Teams Power Plant Operator Relationship Specialty Start Date End Date Genesis Hampton MD PCP - General 05/08/12 [address] [place] [address] documented as of this encounter
--- OUTSIDE RECORDS SUMMARY | 2022-04-23 09:42 | XMS_ITS | Encounter Summary ---
:1995 Author Organization [facility] Address [address] [place] [address] Care Team Providers Name Role Phone Alfredo Hampton MD Primary Care Provider Reason for Visit Reason Comments Refill Encounter Details Date Type Department Care Team Description 02/06/2016 Refill [place] [facility] Alfredo [place] MD Refill [address] [place] [address] [place], [place] [id number] (Wo rk) Social History Tobacco Use Types Packs/Day Years Used Date Smoking Tobacco: Never Assessed Sex Assigned at Date Recorded Not on file documented as of this encounter Nursing Notes User, Refillmeaghan - 02/06/2016 3:18 PM CDT APRI 0.15-0.03 mg per tablet [Pharmacy Med Name: APRI 28 DAY TABLET] - MEDICATION STARTED: 09/11/2010 - LAST REFILLED ON: 12/17/2014, QTY: 84, Refills: 4, Sig: take 1 tablet by mouth daily (every 24 hours). follow package directions. (unchanged) - REFILL: 3 months - RATIONALE: This is a courtesy refill. Patient is overdue for an office visit. This will be the last refill authorized by the protocol. - LAST QUALIFYING VISIT WITH ALFREDO HAMPTON: 12/17/2014 - NEXT SCHEDULED VISIT: None - SBP: 110.0mm Hg on 12/17/2014 - DBP: 78.0mm Hg on 12/17/2014 Powered by [employer], Reference: [id number], 02/06/2016 1:07:13 AM CDT, Pool: EDENK REFILL ([id number]) María Layne - 02/06/2016 3:18 PM CDT Appointment Letter Sent TER (CAD) ELECTRONIC Aminata Fitzgerald RN - 02/06/2016 11:36 AM CDT OFFICE APPOINTMENT NEEDED Please notify patient to schedule an appointment within 30 days. Requested Prescriptions Signed Prescriptions Disp Refills ??? APRI 0.15-0.03 mg per tablet 84 tablet 0 Sig: TAKE 1 TABLET BY MOUTH DAILY (EVERY 24 HOURS). FOLLOW PACKAGE DIRECTIONS. Authorizing Provider: ALFREDO HAMPTON Ordering User: AMINATA FITZGERALD documented in this encounter Miscellaneous Notes Letter - Alfredo Hampton MD - 02/06/2016 12:00 AM CDT Images from the original note were not included. [facility] Renetta White [address] [facility] [address] February 06, 2016 Dear Renetta L Christopher, We recently received a renewal request for your prescription(s). While reviewing your chart, we noticed that you are due for a visit with your doctor. To receive future refills, please schedule an office visit within the next month. At [facility], your health care is important to us. Please call [phone] to schedule an appointment. Thank you for choosing [facility] for your health care needs. Your [facility] Primary Care Team TER (CAD) ELECTRONIC documented in this encounter Plan of Treatment Not on filedocumented as of this encounter Visit Diagnoses Not on filedocumented in this encounter Care Teams Senior Cytogenetics Laboratory Director Relationship Specialty Start Date End Date Alfredo Hampton MD PCP - General 05/08/[address] [facility] [address] documented as of this encounter
--- OUTSIDE RECORDS SUMMARY | 2022-04-23 09:43 | XMS_ITS | Encounter Summary ---
:1995 Author Organization [facility] Address [address] [place] [address] Care Team Providers Name Role Phone Dean Lawson MD Primary Care Provider Encounter Details Date Type Department Care Team Description 04/25/2009 [facility] Welch [facility] [address] [place] [address] [place], [place] [address] (Wo rk) Social History Tobacco Use Types Packs/Day Years Used Date Smoking Tobacco: Never Assessed Sex Assigned at Date Recorded Not on file documented as of this encounter Last Filed Vital Signs Vital Sign Reading Time Taken Comments Blood Pressure 100/60 04/25/2009 3:37 PM CDT Pulse 82 04/25/2009 3:37 PM CDT Temperature - - Respiratory Rate - - Oxygen Saturation - - Inhaled Oxygen Concentration - - Weight 45.4 kg (99 lb 15.7 oz) 04/25/2009 3:37 PM CDT C : 45.4kg Height - - Body Mass Index - - documented in this encounter Progress Notes Genesis Hampton MD - 04/25/2009 12:01 AM CDT Progress Notes signed by Genesis Hampton MD at 04/26/09 0801 Author: Genesis Hampton MD Service: (none) Author Type: Physician Filed: 11/18/10 1640 Note Time: 04/25/09 0001 Status: Signed Development Writer: Genesis Hampton MD (Physician) NAME: BROOK WHITE MR#: [id number] ACCT: [id number] VISIT: [id number] DICTATING CLINICIAN: Genesis Hampton MD CONFIRM #: [id number] LOC: 1402 CLINIC PROGRESS NOTE DATE OF VISIT: 04/25/2009 SUBJECTIVE: Valentino is a 13-year-old young lady who comes in today to discuss possibly being placed on control pills. She started getting her period at age 11, and she states since then they have been very erratic, anywhere from every 6 to 8 weeks. Bigger concern is that it lasts for 7 days, and day 2 and 3 are very heavy where she will often go through a tampon every 15 to 30 minutes for a couple of hours throughout the day. She denies any clots. She is not having any significant cramping. She is not having any midcycle cramping. She does have some oiez-hg-arzjjgji acne. We spent 30 minutes today discussing risks and benefits of control pills. We also discussed safe sex. She is currently not sexually active. We did discuss that should she become sexually active she still needs to use condoms to protect her from STDs. We also spent a fair amount of time discussing the HPV vaccine which she has not yet received. Informational handout was given today. They tried contacting their insurance company to make sure this was a covered vaccine, unable to get through, and at this time they will go home, read the information, and call should they wish to pursue the HPV vaccine. I did recommend that this is a good vaccine. OBJECTIVE: VS: Stable. She is alert, cooperative, interactive, in no apparent distress. She again does have imbt-jb-urvitaht acne, primarily in the T-zone on her face. No evidence of pustules on her chest or back. ASSESSMENT: 1. Period control. 2. Acne. PLAN: She was placed on control pills. Will follow up with me in 3 months to check her blood pressure, sooner if she is having significant concerns. [id number] C: 04/26/09 07:52 CONFIRM #: [id number] documented in this encounter Plan of Treatment Not on filedocumented as of this encounter Visit Diagnoses Not on filedocumented in this encounter Care Teams Insole Rounder Relationship Specialty Start Date End Date Dean Lawson MD PCP - General 10/31/10 05/07/12 [address] [place] [address] documented as of this encounter
--- OUTSIDE RECORDS SUMMARY | 2022-04-23 09:43 | XMS_ITS | Encounter Summary ---
:1995 Author Organization [employer] Address [address] [place] [address] Care Team Providers Name Role Phone Dean Lawson MD Primary Care Provider Encounter Details Date Type Department Care Team Description 08/09/2008 Office Visit [facility] Dean Lawson MD [address] [facility] . [address] [place] [address] [place], [place] [address] (Wo rk) Social History Tobacco Use Types Packs/Day Years Used Date Smoking Tobacco: Never Assessed Sex Assigned at Date Recorded Not on file documented as of this encounter Last Filed Vital Signs Vital Sign Reading Time Taken Comments Blood Pressure - - Pulse - - Temperature - - Respiratory Rate - - Oxygen Saturation - - Inhaled Oxygen Concentration - - Weight 44.4 kg (97 lb 15.9 oz) 08/09/2008 3:42 PM FIRMWARE TEST ENGINEER C : 44.5kg Height - - Body Mass Index - - documented in this encounter Progress Notes Dean Lawson MD - 08/09/2008 12:01 AM CST Progress Notes signed by Dean Lawson MD at 08/09/08 1605 Author: Dean Lawson MD Service: (none) Author Type: Physician Filed: 11/18/10 0955 Note Time: 08/09/08 0001 Status: Signed Site Acquisition Specialist: Dean Lawson MD (Physician) Procedure Note: Skin Lesion Destruction CHIEF COMPLAINT: Skin wart(s) Adverse Drug Reactions: None. Vital Signs: Vital Signs taken today were reviewed on the flowsheet in LastWord. Location #1: palmar left hand History: Lesion has been Description: verrucous papule consistent with a benign wart. Number of Lesions Treated @ This Site: Size of Lesion: 3 mm. ASSESSMENT: Wart(s) (078.10) PROCEDURE NOTE: Liquid nitrogen applied to freeze the entire lesion(s) including a narrow margin of surrounding skin for 10 seconds. After thawing, freezing was repeated x 1 for 10 seconds. Band-Aid applied to lesion(s). PLAN: Patient was given discharge instructions and was discharged in stable condition. Return to clinic if there is not complete resolution of the lesion over the next month. *SH~PC~SLD ~Shorthand Note completed on: 08/09/2008 4:05 PM WARE TEST ENGINEER documented in this encounter Plan of Treatment Not on filedocumented as of this encounter Visit Diagnoses Not on filedocumented in this encounter Care Teams Document Review Attorney Relationship Specialty Start Date End Date Dean Lawson MD PCP - General 10/31/10 05/07/12 1415 [facility] [place] [address] documented as of this encounter
--- OUTSIDE RECORDS SUMMARY | 2022-04-23 09:43 | XMS_ITS | Encounter Summary ---
:1995 Author Organization [employer] Address [address] [place] [address] Care Team Providers Name Role Phone Dean Shine MD Primary Care Provider Encounter Details Date Type Department Care Team Description 07/12/2008 Office Visit [facility] Dean Shine MD [address] [facility] . [address] [facility] [place] [address] [place], [place] [address] (Wo rk) Social History Tobacco Use Types [...] Weight 45.4 kg (99 lb 15.7 oz) 07/12/2008 3:26 PM DEVICE ENGINEER C : 45.4kg Height - - Body Mass Index - - documented in this encounter Progress Notes Dean Shine MD - 07/12/2008 12:01 AM CST Progress Notes signed by Dean Shine MD at 07/26/08 5914 Author: Dean Shine MD Service: (none) Author Type: Physician Filed: 11/18/10 0918 Note Time: 07/12/08 0001 Status: Signed Auditor In Charge: Dean Shine MD (Physician) NAME: BROOK WHITE MR#: [id number] ACCT: [id number] VISIT: [id number] DICTATING CLINICIAN: DEAN SHINE MD CONFIRM #: [id number] LOC: 1202 CLINIC PROGRESS NOTE DATE OF VISIT: 07/12/2008 SUBJECTIVE: : 1995. Here for retreatment of wart, left hand. Previously treated 2 weeks ago. Tolerated treatment well. Lesion is persistent, but smaller per patient. OBJECTIVE: VS: Wt: 100 lb. GENERAL: Awake, alert, in no apparent distress. Left palm is examined. She has a 3 x 5 mm verrucous lesion consistent with common wart. PROCEDURE NOTE: Using a #15 blade, the wart was pared down to punctate bleeding as tolerated. Then using liquid nitrogen, the lesion was frozen to blanching, including a rim of normal tissue for 10 seconds, allowed to thaw completely and refrozen to blanching for 10 seconds again. She tolerated this well. A bandage was placed. ASSESSMENT: PLAN: Return for retreatment in 3 weeks if lesion persists, otherwise p.r.n. [facility]:[id number] C: 07/13/08 08:47 CONFIRM #: [id number] CE ENGINEER documented in this encounter Plan of Treatment Not on filedocumented as of this encounter Visit Diagnoses Not on filedocumented in this encounter Care Teams Cutter And Presser Relationship Specialty Start Date End Date Dean Shine MD PCP - General 10/31/10 05/07/12 1415 [facility] [place] [address] documented as of this encounter
--- OUTSIDE RECORDS SUMMARY | 2022-04-23 09:43 | XMS_ITS | Encounter Summary ---
:1995 Author [facility] Address [address] [place] [address] Care Team Providers Name Role Phone eDan Lawson MD Primary Care Provider Encounter Details Date Type Department Care Team Description 11/22/2010 Nursing Visit [place] [facility] Allison Hernandez, PA-C 14[address] [facility] . [address] [address] [address] [phone] [place], [place] [address] (Wo rk) Social History Tobacco Use Types Packs/Day Years Used Date Smoking Tobacco: Never Assessed Sex Assigned at Date Recorded Not on file documented as of this encounter Plan of Treatment Not on filedocumented as of this encounter Visit Diagnoses Not on filedocumented in this encounter Care Teams Folder Seamer Automatic Relationship Specialty Start Date End Date Dean Lawson MD PCP - General 10/31/10 05/07/12 [facility] [place] [id number] documented as of this encounter
--- OUTSIDE RECORDS SUMMARY | 2022-04-23 09:43 | XMS_ITS | Encounter Summary ---
:1995 Author Organization [facility] Address [address] [place] [address] Care Team Providers Name Role Phone Dean Lawson MD Primary Care Provider Reason for Visit Reason Comments Refill Encounter Details Date Type Department Care Team Description 11/03/2011 Refill [facility] [facility] Genesis Welch MD Refill [address] [place] [address] [place] [address] [phone] (Wo rk) Social History Tobacco Use Types Packs/Day Years Used Date Smoking Tobacco: Never Assessed Sex Assigned at Date Recorded Not on file documented as of this encounter Nursing Notes Janice Olson RN - 11/06/2011 9:36 AM CDT LMM informed pt of med refill, requested a call back to schedule an appt Katia Paz - 11/06/2011 7:45 AM CDT REFILL APPOINTMENT NEEDED Please call patient and schedule appointment within 30 days. Medication has been renewed and sent to pharmacy for a 30 day supply. Comment: control pill documented in this encounter Plan of Treatment Not on filedocumented as of this encounter Visit Diagnoses Not on filedocumented in this encounter Care Teams General Counselor Relationship Specialty Start Date End Date Dean Lawson MD PCP - General 10/31/10 05/07/12 [address] [place] [address] documented as of this encounter
--- OUTSIDE RECORDS SUMMARY | 2022-04-23 09:43 | XMS_ITS | Encounter Summary ---
:1995 Author Organization [facility] Address [address] [place] [address] Care Team Providers Name Role Phone Dean Shine MD Primary Care Provider Encounter Details Date Type Department Care Team Description 06/28/2008 Office Visit [facility] Dean Shine MD 1415 [facility] . 14[address] [facility] [place] [place] [address] [place], [place] [phone] (Wo rk) Social History Tobacco Use Types Packs/Day Years Used Date Smoking Tobacco: Never Assessed Sex Assigned at Date Recorded Not on file documented as of this encounter Last Filed Vital Signs Vital Sign Reading Time Taken Comments Blood Pressure 104/66 06/28/2008 3:52 PM RESEARCH SCIENTIST Pulse - - Temperature - - Respiratory Rate - - Oxygen Saturation - - Inhaled Oxygen Concentration - - Weight 45.8 kg (100 lb 15.9 oz) 06/28/2008 3:52 PM RESEARCH SCIENTIST C: 45.8kg Height - - Body Mass Index - - documented in this encounter Progress Notes Dean Shine MD - 06/28/2008 12:01 AM CST Progress Notes signed by Dean Shine MD at 07/13/08 0814 Author: Dean Shine MD Service: (none) Author Type: Physician Filed: 11/18/10 0856 Note Time: 06/28/08 0001 Status: Signed Wall Covering Installer: Dean Shine MD (Physician) NAME: BROOK WHITE MR#: [id number] ACCT: [id number] VISIT: [id number] DICTATING CLINICIAN: DEAN SHINE MD CONFIRM #: [id number] LOC: 1202 CLINIC PROGRESS NOTE DATE OF VISIT: 06/28/2008 SUBJECTIVE: 1995.: Here for 2 issues. 1. Right ankle injury sustained 3 to 4 weeks ago going down some steps. Ended up having an inversion injury with lateral foot/ankle pain. Is still having discomfort on the lateral aspect of the foot. Swelling and ecchymoses have largely resolved in the interim. 2. Would like to have wart on her left hand refrozen. Was treated 2 months ago with cryotherapy. Did blister and fall off, but has grown back to the same size. ADR/ALLERGIES: NO KNOWN DRUG ALLERGIES. MEDS: No chronic meds. OBJECTIVE: VS: BP: 104/66. Wt: 101 lb. She is awake, alert, no apparent distress. Right ankle shows no gross deformity. Anterior drawer test is negative. Medial and lateral malleolus no gross deformity. Mild distal anterior discomfort of the lateral malleolus. No pain in the medial malleolus. Pain at the base of the fifth metatarsal. No gross deformity or ecchymosis present. An x-ray was obtained which shows no evidence of fracture. Left hand, palmar surface has a 7-mm verrucous lesion consistent with a wart. ASSESSMENT: 1. Right ankle inversion injury with contused base of the fifth metatarsal. 2. Palmar common wart. PLAN: 1. Recommended range of motion and gradual return to activity when pain resolves from her foot. Return if failing to resolve. 2. Procedure note: Using a #15 blade the wart was pared to punctate bleeding as tolerated. Then using liquid nitrogen gun, the lesion was frozen to blanching for 10 seconds, allowed to thaw completely and refrozen to blanching for 10 seconds again. A bandage was placed. Return for retreatment in 3 to 4 weeks. [facility]:[id number] C: 06/29/08 09:18 CONFIRM #: [id number] ARCH SCIENTIST documented in this encounter Plan of Treatment Not on filedocumented as of this encounter Procedures Procedure Name Priority Date/Time Associated Diagnosis Comme nts XR FOOT RT 3+ VIEWS Routine 06/28/2008 4:39 PM Re sults for this RESEARCH SCIENTIST procedure are i n the results section. documented in this encounter Results XR Foot Rt 3+ Views (06/28/2008 4:39 PM RESEARCH SCIENTIST) Anatomical Region Laterality Modality Lower Extremity, Foot Other Specimen (Source) Anatomical Location Collection Method / Collectio n Time Received Time / Laterality Volume Narrative 06/28/2008 4:39 PM RESEARCH SCIENTIST No acute or significant bone or joint abnormality. [id number] Dictating MARIO GREY RADIOLOGIST Procedure Note Mario Molina - 09/27/2016Formatting o f this note might be different from the original. No acute or significant bone or joint ab normality. [id number] Dictating MARIO GREY RADIOLOGIST Dean Shine MD RAD GD documented in this encounter Visit Diagnoses Not on filedocumented in this encounter Care Teams Management Trainee Program Stores Relationship Specialty Start Date End Date Dean Shine MD PCP - General 10/31/10 05/07/12 [address] [place] [address] documented as of this encounter
--- OUTSIDE RECORDS SUMMARY | 2022-04-23 09:43 | XMS_ITS | Encounter Summary ---
:1995 Author Organization [facility] Address [address] [place] [address] Care Team Providers Name Role Phone Dean Lawson MD Primary Care Provider Encounter Details Date Type Department Care Team Description 09/21/2010 [facility] Genesis Welch MD [address] [place] [address] [place], [place] [address] (Wo rk) Social History Tobacco Use Types Packs/Day Years Used Date Smoking Tobacco: Never Assessed Sex Assigned at Date Recorded Not on file documented as of this encounter Last Filed Vital Signs Vital Sign Reading Time Taken Comments Blood Pressure 114/62 09/21/2010 4:22 PM RETAIL AND RESTAURANT Pulse 76 09/21/2010 4:22 PM RETAIL AND RESTAURANT Temperature 36.2 ??C (97.2 ??F) 09/21/2010 4:22 PM ORAL C: 3 6.2 C RETAIL AND RESTAURANT Respiratory Rate - - Oxygen Saturation - - Inhaled Oxygen Concentration - - Weight 46.8 kg (103 lb 1.4 09/21/2010 4:22 PM C: 46.8kg oz) RETAIL AND RESTAURANT Height 165.7 cm (5' 5.25) 09/21/2010 4:22 PM C: 165.7c m RETAIL AND RESTAURANT Body Mass Index 17.02 09/21/2010 4:22 PM RETAIL AND RESTAURANT Body Mass Index Percentile 3.85 % 09/21/2010 4:22 PM RETAIL AND RESTAURANT Growth Chart: CDC (Girls, 2-20 Years) documented in this encounter Progress Notes Genesis Hampton MD - 09/21/2010 12:01 AM CST Well Child/Adolescent Visit or Sports Physical IMPRESSION: Well adolescent visit. Demographics: Accompanied by mother. Patient is 15 years old. Patient is in eleventh grade of school. Interval History: No specific patient concerns. No specific parental concerns. Eats 3 meals per day with a varied diet. Has adequate protein intake. Adequate milk intake. Calcium intake adequate. No concerns about sleep habits. No concerns about social interactions. School / Activities: School: No concerns about school. Grades in school include B's. Grades in school include C's. Activity: Gets regular activity. Tobacco: Never smoked. Alcohol: None. Drugs: Denies any drug use. Sexual History: Never sexually active. Current Medical Concerns: Habits: Patient has been on control pills to help with dysmenorrhea, and this has been very helpful. She does have a wart on the palmar surface of her right hand and this was treated today Past History: Adverse drug reactions: No known adverse drug reactions. Medications: Reviewed and updated today on Health Profile in the Electronic Medical Record. Food Allergies: No food allergies. Previous Illness: Past medical history updated on the Electronic Medical Record problem list. History of Dysmenorrhea Review of Systems: Except for items noted above, remainder of complete review of systems was negative. Pediatric Symptom Checklist-17: Administered; no concerns identified. See scanned paper questionnaire. Social / Family History: Family: Parents . Number of siblings: 4 No family financial difficulties. Environment: [place]. No lead exposure risk. No pets. Safety: Not using bicycle helmets consistently. Wearing seatbelts consistently. Allergic rhinitis. Diabetes. Mother maternal grandfather and maternal cousins with allergies. Maternal grandmother with type 2 diabetes PHYSICAL EXAM: (See online scanned documents for percentile graphs) Vital signs updated and reviewed in the Electronic Medical Record. Current Weight: One a 3.1 lbs. / Current Height: 65.25 inches Current BMI: Kg/meters squared Blood Pressure: 114/62 General Appearance: Alert, comfortable. HEENT: Canals/TM's normal, conjunctivae non-injected, sclerae anicteric, no strabismus, oral mucosa Amoist without lesions. Neck: Supple, no mass or goiter. Chest: Clear with Bnormal effort. CV: Regular rate w/o murmur, pulses normal to palpation. Abdomen: Soft, nontender without hepatosplenomegaly or masses. Extremities: DFull range of motion without abnormality. Neuro: Normal tone and symmetric Ereflexes. Spine: Grossly normal. Skin: No abnormal rash. Weight: Appears proportional to height. Breasts: Normal development without masses. /Pelvic: Normal external genitalia, no hernia. Genitalia & Pubic Hair: Cristiano stage 5. Sexual Maturity Rating (Genitalia): Cristiano stage 5. Sexual Maturity Rating (Pubic Hair): Cristiano stage 5. General Appearance: Alert, comfortable. Weight: Weight appears proportional Mto height. HEENT: Canals/TM's normal, conjunctivae non-injected, sclerae Nanicteric, no strabismus, oral mucosa moist without lesions. Neck: Supple, Ivonne mass or goiter. Chest: Clear with normal effort. CV: Regular rate w/o murmur, normal pulses. General Appearance: Alert, comfortable. Weight: Weight appears proportional to height. HEENT: Canals/TM's normal, conjunctivae non-injected, sclerae anicteric, no strabismus, oral mucosa moist without lesions. Neck: Supple, no mass or goiter. Chest: Clear with normal effort. CV: Regular rate w/o murmur, normal pulses. PHYSICAL EXAM II: Skipped this section. ASSESSMENT: Well adolescent visit. PLAN: Immunizations: HPV vaccine given. Mom will bring in prior vaccine records General Counseling: Anticipatory Guidance Handout given and discussed where appropriate. Follow Up: In two years. Behavior/Environment/Social: Behavior/Environment/Social: Wart to her left palm treated with debridement and catheter will followup in 3-4 weeks. If persists *SH~PC~WSP ~ Shorthand Note completed on: 09/22/2010 4:52 PM IL AND RESTAURANT documented in this encounter Plan of Treatment Not on filedocumented as of this encounter Visit Diagnoses Not on filedocumented in this encounter Care Teams Real Estate Rep Relationship Specialty Start Date End Date Dean Lawson MD PCP - General 10/31/10 05/07/12 [facility] [place] [address] documented as of this encounter
--- OUTSIDE RECORDS SUMMARY | 2022-04-23 09:43 | XMS_ITS | Encounter Summary ---
:1995 Author Organization [facility] Address [address] [place] [address] Care Team Providers Name Role Phone Genesis Hampton MD Primary Care Provider Reason for Visit Reason Comments Refill Encounter Details Date Type Department Care Team Description 12/23/2012 Refill [facility] [facility] Genesis Welch MD Refill [address] [place] [address] [place], [place] [address] (Wo rk) Social History Tobacco Use Types Packs/Day Years Used Date Smoking Tobacco: Never Assessed Sex Assigned at Date Recorded Not on file documented as of this encounter Nursing Notes Myrna Dumont - 12/24/2012 1:[address] Hampton to address refill of desogestrel-ethinyl estradiol 0.15-30 DOES NOT MEET REQUIREMENTS FOR REFILL Reason: patient needs appointment sent appointment letter to patient 09/2012 Last visit with PCP: qualifying visit on 10/2011 Requested Prescriptions Pending Prescriptions Disp Refills ??? desogestrel-ethinyl estradiol (EMOQUETTE) 0.15-30 mg-mcg per tablet 84 tablet 0 Sig: Follow package instructions documented in this encounter Plan of Treatment Not on filedocumented as of this encounter Visit Diagnoses Not on filedocumented in this encounter Care Teams Signal Mechanic Relationship Specialty Start Date End Date Genesis Hampton MD PCP - General 05/08/12 [address] [place] [address] documented as of this encounter
--- OUTSIDE RECORDS SUMMARY | 2022-04-23 09:43 | XMS_ITS | Encounter Summary ---
:1995 Author Organization [facility] Address [address] [place] [address] Care Team Providers Name Role Phone Dean Lawson MD Primary Care Provider Encounter Details Date Type Department Care Team Description 07/18/2009 [facility] Vy Bermudez PA-C [address] [place] [address] [place], [place] [address] (Wo rk) Social History Tobacco Use Types Packs/Day Years Used Date Smoking Tobacco: Never Assessed Sex Assigned at Date Recorded Not on file documented as of this encounter Last Filed Vital Signs Vital Sign Reading Time Taken Comments Blood Pressure 102/56 07/18/2009 4:23 PM LOG DECKMAN Pulse 78 07/18/2009 4:23 PM LOG DECKMAN Temperature - - Respiratory Rate - - Oxygen Saturation - - Inhaled Oxygen Concentration - - Weight 45.4 kg (99 lb 15.7 oz) 07/18/2009 4:23 PM LOG DECKMAN C : 45.4kg Height - - Body Mass Index - - documented in this encounter Progress Notes Vy Bermudez PA-C - 07/18/2009 12:01 AM CST Progress Notes signed by Vy Bermudez PA-C at 07/18/09 7108 Author: Vy eBrmudez PA-C Service: (none) Author Type: Physician Production Proofreader Filed: 11/18/10 1850 Note Time: 07/18/09 0001 Status: Signed Report Specialist: Vy Bermudez PA-C (Resource) SUBJECTIVE: Follow-up of menorrhagia patient is a 13-year-old girl who was seen by Dr. Hampton on 04/25/09, and started on Desogen for menorrhagia. The medication is working very well for her. She is very good about remembering to take it daily at about the same time each day. She denies any side effects of the medication, no breast tenderness or nausea. Her period usually lasts 4 or 5 days, and is not as heavy as previously. Her mother has not had to come and pick her up from school at all this year, and had to pick her up 6 times last year because she had bled through even with double protection. She states she doesn't have a boyfriend yet but she thinks there is a boy who is planning on asking her out. She isn't allowed to date until she is 14. She denies ever being sexually active. They are still waiting to hear back from their insurance company regarding the HPV vaccine. She has an additional concerned about a lump underneath her chin that's been present since she was a baby. She thinks it's ugly. It does not hurt or affect her swallowing. It appears to be a lipoma. Adverse Drug Reactions: NKDA Medications: Reviewed. See Medication List in LastWord. OBJECTIVE: Vital Signs : Reviewed; See Flowsheet Charting in LastWord. General: Well-developed, well-nourished 13-year-old adolescent, NAD.Respiratory: Normal respiratory effort. Heart: RR without murmurs, rubs, or gallops. Neck: Supple without adenopathy or thyromegaly. No thyroid nodules. In the midline just above her larynx, she has a 1 cm oval round subcutaneous lump consistent with a lipoma. It is not red, tender or inflamed. ASSESSMENT: 1. Follow-up of menorrhagia: She was given a new prescription for Desogen and advised of the proper use and possible side effects of the medication. Return to the clinic for Pap and pelvic exam at age 19 or within 3 years of first sexual activity. She was encouraged to remain abstinent. PLAN: The patient was discharged ambulatory and in stable condition. *SH~DNS~SOAP DECKMAN documented in this encounter Plan of Treatment Not on filedocumented as of this encounter Visit Diagnoses Not on filedocumented in this encounter Care Teams Filtration Operator Relationship Specialty Start Date End Date Dean Lawson MD PCP - General 10/31/10 05/07/12 [facility] [place] [address] documented as of this encounter
--- OUTSIDE RECORDS SUMMARY | 2022-04-23 09:43 | XMS_ITS | Encounter Summary ---
:1995 Author [facility] Address [address] [place] [address] Care Team Providers Name Role Phone Dean Lawson MD Primary Care Provider Reason for Visit Reason Comments IMMUNIZATIONS Encounter Details Date Type Department Care Team Description 04/03/2011 [facility], combined Medicine vaccine (Primary Dx) [address] [place] [address] Social History Tobacco Use Types Packs/Day Years Used Date Smoking Tobacco: Never Assessed Sex Assigned at Date Recorded Not on file documented as of this encounter Plan of Treatment Not on filedocumented as of this encounter Visit Diagnoses Diagnosis Immunization, combined vaccine - Primary Need for prophylactic vaccination with u nspecified combined vaccine documented in this encounter Care Teams Product Development Ecologist Relationship Specialty Start Date End Date Dean Lawson MD PCP - General 10/31/10 05/07/12 1415 [facility] [place] [address] documented as of this encounter
--- OUTSIDE RECORDS SUMMARY | 2022-04-23 09:43 | XMS_ITS | Encounter Summary ---
:1995 Author Organization [facility] Address [address] [place] [address] Care Team Providers Name Role Phone Genesis Hampton MD Primary Care Provider Reason for Visit Reason Comments Annual Exam Encounter Details Date Type Department Care Team Description 06/23/2013 [facility] Genesis Hampton, [facility] adult exam (Primary Dx); Medicine Contraception [address] [facility] [facility] [place] [address] [place], [place] [phone] Social History Tobacco Use Types Packs/Day Years Used Date Smoking Tobacco: Never Assessed Sex Assigned at Date Recorded Not on file documented as of this encounter Last Filed Vital Signs Vital Sign Reading Time Taken Comments Blood Pressure 110/70 06/23/2013 3:48 PM [employer] Pulse 84 06/23/2013 3:48 PM [employer] Temperature - - Respiratory Rate - - Oxygen Saturation - - Inhaled Oxygen Concentration - - Weight 53.8 kg (118 lb 11.2 oz) 06/23/2013 3:48 PM [employer] Height 166.4 cm (5' 5.5) 06/23/2013 3:48 PM SEAL[employer] Body Mass Index 19.45 06/23/2013 3:48 PM SEAL[employer] documented in this encounter Patient Instructions Patient InstructionsGenesis Hampton MD - 06/23/2013 4:03 PM CST 1. please have mom fax vaccine records to us ER AIRCRAFT documented in this encounter Progress Notes Genesis Hampton MD - 06/28/2013 11:37 AM CST Subjective: Renetta White is a 17 y.o. female and is here for a [...] Mother scoliosis ??? Osteoarthritis Father back surgery History Social History ??? Marital Status: Single Spouse Name: N/A Number of Children: N/A ??? Years of Education: N/A Social History Main Topics ??? Smoking status: Former Smoker ??? Smokeless tobacco: None ??? Alcohol Use: No Comment: Alcoholic Drinks/day: Freq:Never; ??? Drug Use: No ??? Sexually Active: None Other Topics Concern ??? None Social History Narrative [place] [facility], next year dating same man since 2010 Current Outpatient Prescriptions Medication Sig Dispense Refill ??? cetirizine (ZYRTEC) 10 mg tablet Take 1 tablet by mouth daily as needed. LW Addl Instr:Indicatedfor: Allergies PRN ??? desogestrel-ethinyl estradiol (EMOQUETTE) 0.15-30 mg-mcg per tablet Follow package instructions 84 tablet 4 No current facility-administered medications for this visit. No Known Allergies History: LMP: Patient's last menstrual period was 06/17/2013. Menstrual cycles are regular normal pap nonapplicable : 0 Para: 0 Do you take any herbs or supplements that were not prescribed by a doctor? no Are you taking calcium supplements? Patient is trying to get adequate dietary calcium Are you taking aspirin daily? not applicable Review of Systems Do you have pain that bothers you in your daily life? no A comprehensive review of systems was negative. Objective: Vital Signs: BP 110/70 Pulse 84 Ht 5' 5.5 (1.664 m) Wt 118 lb 11.2 oz (53.842 kg) BMI 19.45kg/m2 LMP 06/17/2013 General Appearance: Alert, cooperative, no distress, appears [...] no murmur, rub or gallop Breast Exam: no axillary nodes Abdomen: Soft, non-tender, bowel sounds active all four quadrants, no masses, no organomegaly Extremities: Extremities normal, atraumatic, no cyanosis or edema Pulses: 2+ and symmetric all extremities Skin: Skin color, texture, turgor normal, no rashes or lesions Lymph nodes: Cervical, supraclavicular, and axillary nodes normal Neurologic: CNII-XII intact, normal strength, sensation and reflexes throughout Assessment: Healthy female exam. 17-year-old Plan: 1. Diagnosis (ICD9) and Associated Orders 1. Well adult exam (V70.0) 2. Contraception (V25.9) desogestrel-ethinyl estradiol (EMOQUETTE) 0.15-30 mg- mcg per tablet 2. Patient Counseling: --Nutrition: Stressed importance [...] reviewed. 3. Follow up in one year ER AIRCRAFT documented in this encounter Plan of Treatment Not on filedocumented as of this encounter Visit Diagnoses Diagnosis Well adult exam - Primary Routine general medical examination at a health care facility Contraception Unspecified contraceptive management documented in this encounter Care Teams Fish Seiner Relationship Specialty Start Date End Date Genesis Hampton MD PCP - General 05/08/12 [address] [place] [address] documented as of this encounter
--- OUTSIDE RECORDS SUMMARY | 2022-04-23 09:43 | XMS_ITS | Encounter Summary ---
:1995 Author Organization [facility] Address [address] [place] [address] Care Team Providers Name Role Phone Dean Lawson MD Primary Care Provider Encounter Details Date Type Department Care Team Description 11/30/2010 PN Conversion Only [facility] Genesis Hampton, Medicine MD [address] [facility] . [address] [address] [facility] [phone] [place], [place] [address] (Wo rk) Social History Tobacco Use Types Packs/Day Years Used Date Smoking Tobacco: Never Assessed Sex Assigned at Date Recorded Not on file documented as of this encounter Plan of Treatment Not on filedocumented as of this encounter Visit Diagnoses Not on filedocumented in this encounter Care Teams Graduate Research Assistant Relationship Specialty Start Date End Date Dean Lawson MD PCP - General 10/31/10 05/07/12 14[address] [facility] [place] HERNANDEZ [id number] documented as of this encounter
--- OUTSIDE RECORDS SUMMARY | 2022-04-23 09:43 | XMS_ITS | Encounter Summary ---
:1995 Author Organization [facility] Address [address] [place] [address] Care Team Providers Name Role Phone Dean Lawson MD Primary Care Provider Encounter Details Date Type Department Care Team Description 04/27/2008 PN Conversion Only [facility] CONVERSION [address] [place] [address] Social History Tobacco Use Types Packs/Day Years Used Date Smoking Tobacco: Never Assessed Sex Assigned at Date Recorded Not on file documented as of this encounter Plan of Treatment Not on filedocumented as of this encounter Visit Diagnoses Not on filedocumented in this encounter Care Teams Clothes Model Relationship Specialty Start Date End Date Dean Lawson MD PCP - General 10/31/10 05/07/12 [facility] [facility] [place] [place] [address] documented as of this encounter
--- OUTSIDE RECORDS SUMMARY | 2022-04-23 09:43 | XMS_ITS | Encounter Summary ---
:1995 Author Organization [facility] Address [address] [place] [address] Care Team Providers Name Role Phone Genesis Hampton MD Primary Care Provider Reason for Visit Reason Comments Refill Encounter Details Date Type Department Care Team Description 05/08/2012 Refill [place] [facility] Genesis Welch MD Refill [address] [place] [address] [place], [place] [phone] (Wo rk) Social History Tobacco Use Types Packs/Day Years Used Date Smoking Tobacco: Never Assessed Sex Assigned at Date Recorded Not on file documented as of this encounter Nursing Notes Aaron Mccarthy - 05/08/2012 4:41 PM CDT The patient called requesting a call from a nurse regarding a refill of Apri. The pharmacy information has been updated. documented in this encounter Plan of Treatment Not on filedocumented as of this encounter Visit Diagnoses Diagnosis Contraception - Primary Unspecified contraceptive management documented in this encounter Care Teams Taper Machine Relationship Specialty Start Date End Date Genesis Hampton MD PCP - General 05/08/12 [address] [place], [place] [id number] documented as of this encounter
--- OUTSIDE RECORDS SUMMARY | 2022-04-23 09:43 | XMS_ITS | Encounter Summary ---
:1995 Author Organization [employer] Address [address] [place] [address] Care Team Providers Name Role Phone Dean Lawson MD Primary Care Provider Reason for Visit Reason Comments Annual Exam Encounter Details Date Type Department Care Team Description 11/26/2011 Office Visit [facility] Genesis Hampton, Cont raception (Primary Medicine MD Dx) [address] [address] [place], [place] [phone] Social History Tobacco Use Types Packs/Day Years Used Date Smoking Tobacco: Never Assessed Sex Assigned at Date Recorded Not on file documented as of this encounter Last Filed Vital Signs Vital Sign Reading Time Taken Comments Blood Pressure 98/50 11/26/2011 3:27 PM CDT Pulse 84 11/26/2011 3:27 PM CDT Temperature - - Respiratory Rate - - Oxygen Saturation - - Inhaled Oxygen Concentration - - Weight 53.5 kg (117 lb 14.4 oz) 11/26/2011 3:27 PM CDT Height 166.4 cm (5' 5.5) 11/26/2011 3:27 PM CDT Body Mass Index 19.32 11/26/2011 3:27 PM CDT Body Mass Index Percentile 22.41 % 11/26/2011 3:27 PM CD T Growth Chart: CDC (Girls, 2-20 Years) documented in this encounter Patient Instructions Patient Liudmila Mercado, FAUSTINA - 11/26/2011 3:29 PM CDT Thank you for enrolling in [employer]. Please follow the instructions below to securely access your online medical record. [employer] allows you to send messages to your doctor, view your test results, renewyour prescriptions, schedule appointments, and more. How Do I Sign Up? 1. In your Internet browser, go to: [email or web address] 2. Click on the Sign Up Now link in the Sign In box. You will see the New Member Sign Up page. 3. Enter your [employer] Access Code exactly as it appears below. You will not need to use this code after you???ve completed the sign-up process. If you do not sign up before the expiration date, you must request a new code. [employer] Access Code: [email or web address] Expires: 12/26/11 03:29 PM 4. Enter your Social Security Number ([id number]) and Date of (mm/dd/yyyy) as indicated and click Submit. You will be taken to the next sign- up page. 5. Create a [employer] ID. This will be your [employer] login ID and cannot be changed, so think of one that is secure and easy to remember. 6. Create a [employer] password. You can change your password at any time. 7. Enter your Password Reset Question and Answer. This can be used at a later time if you forget your password. 8. Enter your e-mail address. You will receive e-mail notification when new information is availablein [employer]. 9. Click Sign Up. You can now view your medical record. Additional Information If you have questions, you can call [phone] to talk to our [employer] staff. Remember, [employer] is NOT to be used for urgent needs. For medical emergencies, dial 911. documented in this encounter Progress Notes Genesis Hampton MD - 11/27/2011 9:07 AM CDT Subjective: Renetta L Christopher is a 16 y.o. female and is here for a comprehensive physical exam. The patient reports no problems Past Medical History Diagnosis Date ??? Constipation ??? (normal spontaneous vaginal delivery) term ??? Allergic rhinitis Patient Active Problem List Diagnoses Date Noted ??? Menorrhagia [626.2] 07/18/2009 Class: Chronic Past Surgical History Procedure Date ??? Cosmetic surgery face after dog bite Family History Problem Relation Age of Onset ??? Osteoarthritis Mother scoliosis ??? Osteoarthritis Father back surgery ??? CAD Father History Social History ??? Marital Status: Single Spouse Name: N/A Number of Children: N/A ??? Years of Education: N/A Social History Main Topics ??? Smoking status: Never Smoker ??? Smokeless tobacco: Not on file ??? Alcohol Use: Not on file Alcoholic Drinks/day: Freq:Never; ??? Drug Use: No ??? Sexually Active: Not on file Other Topics Concern ??? Not on file Social [facility] next yeard[facility] same man for 10 months Current outpatient prescriptions Medication Sig Dispense Refill ??? cetirizine (ZYRTEC) 10 mg tablet Take 1 tablet by mouth daily as needed. LW Addl Instr:Indicatedfor: Allergies PRN ??? desogestrel-ethinyl estradiol (APRI) 0.15-30 mg-mcg per tablet Take 1 tablet by mouth daily (every 24 hours). Follow package instructions 84 tablet 4 No Known Allergies History: LMP: Patient's last menstrual period was 11/06/2011. Patient is having regular menstrual cycles Last pap date: Not applicable Abnormal pap? no : 0 Para: 0 Do you take any herbs or supplements that were not prescribed by a doctor? no, patient denies any drug or alcohol use Are you taking calcium supplements? no Are you taking aspirin daily? not applicable Review of Systems Do you have pain that bothers you in your daily life? no A comprehensive review of systems was negative. Objective: Vital Signs: BP 98/50 Pulse 84 Ht 5' 5.5 (1.664 m) Wt 117 lb 14.4 oz (53.479 kg) BMI 19.32 kg/m2 LMP 11/06/2011 General Appearance: Alert, cooperative, no distress, appears [...] S2 normal, no murmur, rub or gallop Abdomen: Soft, non-tender, bowel sounds active all four quadrants, no masses, no organomegaly Extremities: Extremities normal, atraumatic, no cyanosis or edema Pulses: 2+ and symmetric all extremities Skin: Skin color, texture, turgor normal, no rashes or lesions Lymph nodes: Cervical, supraclavicular, and axillary nodes normal Neurologic: CNII-XII intact, normal strength, sensation and reflexes throughout Assessment: Healthy female exam. 16-year-old Refill on her control pills was provided, discussed the importance of using condoms Plan: 1. 1. Contraception (V25.9N) desogestrel-ethinyl estradiol (APRI) 0.15-30 mg-mcg per tablet 2. Patient Counseling: --Nutrition: Stressed importance of moderation in sodium/caffeine intake, saturated fat and cholesterol, caloric balance, sufficient intake of fresh fruits, vegetables, fiber, calcium, iron, and 1 mg of folate supplement per day (for females capable of ). --Discussed the issue of estrogen replacement, calcium supplement, and the daily use of baby aspirin. --Exercise: Stressed the importance of regular exercise. --Substance Abuse: Discussed cessation/primary prevention of tobacco, alcohol, or other drug use; driving or other dangerous activities under the influence; availability of treatment for abuse. --Sexuality: Discussed sexually transmitted diseases, partner selection, use of condoms, avoidance of unintended and contraceptive alternatives. --Injury prevention: Discussed safety belts,--Dental health: Discussed importance of regular tooth brushing, flossing, and dental visits. --Immunizations reviewed. --Discussed benefits of screening colonoscopy. --After hours service discussed with patient 3. Follow up in one year documented in this encounter Plan of Treatment Not on filedocumented as of this encounter Visit Diagnoses Diagnosis Contraception - Primary Unspecified contraceptive management documented in this encounter Care Teams It Teacher Relationship Specialty Start Date End Date Dean Lawson MD PCP - General 10/31/10 05/07/12 [address] [place] [address] documented as of this encounter
--- OUTSIDE RECORDS SUMMARY | 2022-04-23 09:43 | XMS_ITS | Encounter Summary ---
:1995 Author Organization [employer] Address [address] [place] [address] Care Team Providers Name Role Phone Dean Shine MD Primary Care Provider Encounter Details Date Type Department Care Team Description 04/27/2008 Office Visit [facility] Dean Shine MD [address] [facility] . [address] [facility] [place] [address] [place], [place] [phone] (Wo rk) Social History Tobacco Use Types Packs/Day Years Used Date Smoking Tobacco: Never Assessed Sex Assigned at Date Recorded Not on file documented as of this encounter Last Filed Vital Signs Vital Sign Reading Time Taken Comments Blood Pressure 92/60 04/27/2008 3:58 PM CDT Pulse - - Temperature - - Respiratory Rate - - Oxygen Saturation - - Inhaled Oxygen Concentration - - Weight 45.8 kg (100 lb 15.9 oz) 04/27/2008 3:58 PM CDT C: 45.8kg Height - - Body Mass Index - - documented in this encounter Progress Notes Dean Shine MD - 04/27/2008 12:01 AM CDT Progress Notes signed by Dean Shine MD at 05/15/08 0854 Author: Dean Shine MD Service: (none) Author Type: Physician Filed: 11/18/10 0725 Note Time: 04/27/08 0001 Status: Signed Septic Tank Setter: Dean Shine MD (Physician) NAME: BROOK WHITE MR#: [id number] ACCT: [id number] VISIT: [id number] DICTATING CLINICIAN: DEAN SHINE MD CONFIRM #: [id number] LOC: 1202 CLINIC PROGRESS NOTE DATE OF VISIT: 04/27/2008 SUBJECTIVE: : 1995. Here for treatment of wart left palmar surface. Present for some time now. Tried home cryotherapy without success. She is a new patient to the clinic. KYRIE form is filled out, reviewed, placed in chart of today's date. OBJECTIVE: VS: BP: 92/60. Wt: 101 lb. Left hand shows a verrucous lesion, palmar surface at 7 mm in diameter. PROCEDURE: Using a #15 blade the lesion was pared to near punctate bleeding as tolerated. Then using liquid nitrogen the lesion was frozen to blanching for 10 seconds including a 1-2 mm rim of normal tissue, allowed to thaw completely and refrozen to blanching for 10 seconds again. Tolerated well. Discussed ongoing wound care. Return in 3-4 weeks if lesion persists, otherwise p.r.n. ASSESSMENT: PLAN: [facility]:[id number] C: 04/28/08 12:47 CONFIRM #: [id number] documented in this encounter Plan of Treatment Not on filedocumented as of this encounter Visit Diagnoses Not on filedocumented in this encounter Care Teams Donor Recruitment Manager Relationship Specialty Start Date End Date Dean Shine MD PCP - General 10/31/10 05/07/12 [address] [address] documented as of this encounter
--- OUTSIDE RECORDS SUMMARY | 2022-04-23 09:43 | XMS_ITS | Encounter Summary ---
:1995 Author Organization [facility] Address [address] [place] [address] Care Team Providers Name Role Phone Alfredo Hampton MD Primary Care Provider Reason for Visit Reason Comments Refill Encounter Details Date Type Department Care Team Description 10/07/2012 Refill [place] [facility] Alfredo Welch MD Refill [address] [place] [address] [place], [place] [address] (Wo rk) Social History Tobacco Use Types Packs/Day Years Used Date Smoking Tobacco: Never Assessed Sex Assigned at Date Recorded Not on file documented as of this encounter Nursing Notes Nahomy Rodríguez - 10/08/2012 11:03 AM CDT Letter mailed today regarding need for an appt. Nahomy Rodríguez 11:03 AM 10/08/2012 Arlene Orourke RN - 10/08/2012 10:53 AM CDT REFILL APPOINTMENT NEEDED Please call patient and schedule appointment within 30 days. Medication has been renewed and sent to pharmacy for a 90 day supply. Comment: Last seen 11/26/11 Prescription Refills Approved Prescriptions Disp Refills ??? EMOQUETTE 0.15-30 mg-mcg per tablet 84 tablet 0 Sig: TAKE 1 TABLET DAILY EVERY 24 HOURS Authorizing Provider: ALFREDO HAMPTON Ordering User: ARLENE OROURKE documented in this encounter Plan of Treatment Not on filedocumented as of this encounter Visit Diagnoses Not on filedocumented in this encounter Care Teams Clockmaker Relationship Specialty Start Date End Date Alfredo Hampton MD PCP - General 05/08/12 [address] [place] [address] documented as of this encounter
--- OUTSIDE RECORDS SUMMARY | 2022-04-23 09:43 | XMS_ITS | Encounter Summary ---
:1995 Author Organization [facility] [employer] Address [address] [place] [address] Care Team Providers Name Role Phone Dean Lawson MD Primary Care Provider Reason for Visit Reason Comments Other Encounter Details Date Type Department Care Team Description 09/08/2010 [facility] [place], Message Other [address] [place] [address] Social History Tobacco Use Types Packs/Day Years Used Date Smoking Tobacco: Never Assessed Sex Assigned at Date Recorded Not on file documented as of this encounter Progress Notes Rose Marie Cruz - 09/08/2010 3:22 PM CST PRESCRIPTION REFILL Please provide enough refills to last until patient's next visit. Comment:- Pharmacy Seq #:-[phone] Pharmacy Name-Phone/Fax:-[facility] Pharmacy Street or City:-[place] Clinician Name:-Vy Bermudez Drug Name/Strength:-Apri 28 day tablet Sig: Dose/Route/Freq:-Take 1 tablet by mouth daily and follow package directions Quantity & Last Fill:- 84ea 06/14/2010 *ECODE~PNRF Created on 08Sep2010 3:22pm by ROSE MARIE CRUZ On 08Sep2010 3:28pm ADRIAN GATES wrote: unable to refill per protocol. pt last seen 07/06 On 11Sep2010 4:00pm CHANCE FORBES wrote: okd for 1 mo. ask her to make an appt for recheck next refill. Acknowledged by CHANCE FORBES on 4:00pm On 11Sep2010 4:11pm YUDI NEAL wrote: Notified mother to make an appt. She agreed. E INSPECTOR documented in this encounter Plan of Treatment Not on filedocumented as of this encounter Visit Diagnoses Not on filedocumented in this encounter Care Teams Hazardous Materials Handler Relationship Specialty Start Date End Date Dean Lawson MD PCP - General 10/31/10 05/07/12 [facility] [place] [address] documented as of this encounter
[2022-04-24 11:49] LABS: Strep B DNA Probe NEGATIVE (Negative)
== END 2022-04-23 09:41 | disposition home or self-care (01) ==
LOC: NFLDREF 09:41
PROVIDERS: Visit Provider Advanced Practice Midwife
DX: Z34.93 Encounter for supervision of normal pregnancy, unspecified, third trimester (principal); Z3A.36 36 weeks gestation of pregnancy
CPT/HCPCS: 87081; 87653

== ENCOUNTER 2022-04-29 17:01 | Outpatient (CLI) | payer MEDICAID, SELFPAY ==
--- OUTSIDE RECORDS SUMMARY | 2022-04-29 17:04 | XMS_ITS | Encounter Summary ---
:1995 Author Organization [facility] Address [address] [place] [address] Care Team Providers Name Role Phone Dean Lawson MD Primary Care Provider Encounter Details Date Type Department Care Team Description 11/22/2010 Nursing Visit [place] [facility] Allison Hernandez, PA-C [address] [facility] . [address] [place] [address] [address] [phone] [place], [place] [address] (Wo rk) Social History Tobacco Use Types Packs/Day Years Used Date Smoking Tobacco: Never Assessed Sex Assigned at Date Recorded Not on file documented as of this encounter Plan of Treatment Not on filedocumented as of this encounter Visit Diagnoses Not on filedocumented in this encounter Care Teams Extruding Machine Operator Relationship Specialty Start Date End Date Dean Lawson MD PCP - General 10/31/10 05/07/12 [address] [facility] [id number] documented as of this encounter
--- OUTSIDE RECORDS SUMMARY | 2022-04-29 17:04 | XMS_ITS | Encounter Summary ---
:1995 Author Organization [facility] Address [address] [place] [address] Care Team Providers Name Role Phone Genesis Hampton MD Primary Care Provider Reason for Visit Reason Comments Refill Encounter Details Date Type Department Care Team Description 05/08/2012 Refill [place] [facility] Genesis Welch MD Refill [address] [place] [address] [place], [place] [address] (Wo rk) Social History Tobacco Use Types [...] management documented in this encounter Care Teams Storeroom Supervisor Relationship Specialty Start Date End Date Genesis Hampton MD PCP - General 05/08/12 [address] [place], [place] [address] documented as of this encounter
--- OUTSIDE RECORDS SUMMARY | 2022-04-29 17:04 | XMS_ITS | Encounter Summary ---
:1995 Author Organization [facility] Address [address] [place] [address] Care Team Providers Name Role Phone Alfredo Hampton MD Primary Care Provider Reason for Visit Reason Onset Date Comments Refill 08/20/2018 desogestrel-ethinyl estradiol (APRI) 0.15-30 MG-MCG tablet Encounter Details Date Type Department Care Team Description 08/20/2018 [facility] Hampton MD Refill Medicine [address] (desogestrel-ethinyl [address] estradiol (APRI) [place] [address] 0.15-30 MG-MCG tablet) [place], [place] [address] [phone] Social History Tobacco Use Types Packs/Day Years [...] 56 mm Hg on 07/12/2017 Powered by Heidi Shaulis, Reference: [id number], 08/20/2018 2:46:52 PM Arnaldo MONTES DE OCA: YUN REFILL WIZARD ADMIN ([id number]) NISTRATOR OF HOME HEALTH Birgit Hurtado - 08/20/2018 2:45 PM CST [...] refills) Please route to: Refill Pool (P [id number]) MPLS PED[facility] Dr. Conner ONLY (P [phone]) NISTRATOR OF HOME HEALTH documented in this encounter Plan of Treatment Not on filedocumented as of this encounter Visit Diagnoses Diagnosis Encounter for surveillance of contracept ba pills Surveillance of previously prescribed co ntraceptive pill documented in this encounter Care Teams Integration Architect Relationship Specialty Start Date End Date Alfredo Hampton MD PCP - General 05/08/12 [address] [place] [address] documented as of this encounter
--- OUTSIDE RECORDS SUMMARY | 2022-04-29 17:04 | XMS_ITS | Encounter Summary ---
:1995 Author Organization [facility] Address [address] [place] [address] Care Team Providers Name Role Phone Dean Lawson MD Primary Care Provider Encounter Details Date Type Department Care Team Description 11/30/2010 PN Conversion Only [facility] Genesis Hampton, Medicine MD [address] [facility] . [address] [place] Borjas [address] [facility] [phone] [place], [place] [address] (Wo rk) Social History Tobacco Use Types Packs/Day Years Used Date Smoking Tobacco: Never Assessed Sex Assigned at Date Recorded Not on file documented as of this encounter Plan of Treatment Not on filedocumented as of this encounter Visit Diagnoses Not on filedocumented in this encounter Care Teams Dairy Associate Relationship Specialty Start Date End Date Dean Lawson MD PCP - General 10/31/10 05/07/12 1415 [facility] ARCELIA HERNANDEZ [id number] documented as of this encounter
--- OUTSIDE RECORDS SUMMARY | 2022-04-29 17:04 | XMS_ITS | Encounter Summary ---
:1995 Author Organization [facility] Address [address] [place] [address] Care Team Providers Name Role Phone Alfredo Hampton MD Primary Care Provider Reason for Visit Reason Comments Refill APRI 0.15-30 MG-MCG tablet [ Pharmacy Med Name: APRI 28 DAY TABLET] Encounter Details Date Type Department Care Team Description 04/18/2017 [facility] MD Refill (APRI 0.15-[address] MG-MCG tablet [Pharmacy [address] Med Name: APRI 28 DAY SE PRIOR [place] BUITRAGO [address] TABLET]) [place] [address] [phone] Social History Tobacco Use Types Packs/Day Years [...] 68 mm Hg on 03/30/2016 Powered by [employer], Reference: [id number], 04/18/2017 1:01:24 AM CDT, Pool: PRLK REFILL ([id number]) documented in this encounter Plan of Treatment Not on filedocumented as of this encounter Visit Diagnoses Diagnosis Encounter for surveillance of contracept ba pills Surveillance of previously prescribed co ntraceptive pill documented in this encounter Care Teams General Warehouse Associate Relationship Specialty Start Date End Date Alfredo Hampton MD PCP - General 05/08/12 [address] [place] [address] documented as of this encounter
--- OUTSIDE RECORDS SUMMARY | 2022-04-29 17:04 | XMS_ITS | Encounter Summary ---
:1995 Author Organization [facility] Address [address] [place] [address] Care Team Providers Name Role Phone Genesis Hampton MD Primary Care Provider Encounter Details Date Type Department Care Team Description 12/17/2014 Lab Visit [facility] Screening cholesterol level [address] [place] [address] Social History Tobacco Use Types [...] Direct LDL(If Needed) (12/17/2014 11:32 AM CDT) [facility] gist Method Time Signature Cholesterol 135 0 [...] - 12/17/2014 3:32 PM CDT Performed at [facility] [address] [place] [address] Genesis Hampton MD LAB_1 Performing Organization Address [facility] Phon e Number HP CONVERSION Basic Metabolic [...] - 12/17/2014 3:32 PM CDT Performed at [facility] [address] [place] [address] Genesis Hampton MD LAB_1 Performing Organization Address [facility] Phon e Number HP CONVERSION documented in this encounter Visit Diagnoses Diagnosis Screening cholesterol level Screening for lipoid disorders documented in this encounter Care Teams Oil Well Fishing Tool Operator Relationship Specialty Start Date End Date Genesis Hampton MD PCP - General 05/08/12 [address] [place] [address] documented as of this encounter
--- OUTSIDE RECORDS SUMMARY | 2022-04-29 17:04 | XMS_ITS | Encounter Summary ---
:1995 Author Organization [facility] Address [address] [place] [address] Care Team Providers Name Role Phone Dean Shine MD Primary Care Provider Encounter Details Date Type Department Care Team Description 07/12/2008 Office Visit [facility] Dean Shine MD 1415 [facility] . [address] [place] [address] [place], [place] [address] (Wo rk) Social History Tobacco Use Types [...] (99 lb 15.7 oz) 07/12/2008 3:26 PM MANAGER PERSONAL C : 45.4kg Height - - Body Mass Index - - documented in this encounter Progress Notes Dean Shine MD - 07/12/2008 12:01 AM CST Progress Notes signed by Dean Shine MD at 07/26/08 9538 Author: Dean Shine MD Service: (none) Author Type: Physician Filed: 11/18/10 0918 Note Time: 07/12/08 0001 Status: Signed Instrument Person: Dean Shine MD (Physician) NAME: BROOK WHITE MR#: [id number] ACCT: [id number] VISIT: [id number] DICTATING CLINICIAN: DEAN SHINE MD CONFIRM #: [id number] LOC: 1202 CLINIC PROGRESS NOTE DATE OF [...] 3 weeks if lesion persists, otherwise p.r.n. [facility]:[id number] C: 07/13/08 08:47 CONFIRM #: [id number] GER PERSONAL documented in this encounter Plan of Treatment Not on filedocumented as of this encounter Visit Diagnoses Not on filedocumented in this encounter Care Teams Chemical Tester Relationship Specialty Start Date End Date Dean Shine MD PCP - General 10/31/10 05/07/12 1415 [facility] [place] [address] documented as of this encounter
--- OUTSIDE RECORDS SUMMARY | 2022-04-29 17:04 | XMS_ITS | Encounter Summary ---
:1995 Author Organization [facility] Address [address] [place] [address] Care Team Providers Name Role Phone Dean Lawson MD Primary Care Provider Encounter Details Date Type Department Care Team Description 09/21/2010 [facility] Genesis Welch MD [address] [place] [address] [place], [place] [address] (Wo rk) Social History Tobacco Use Types Packs/Day Years Used Date Smoking Tobacco: Never Assessed Sex Assigned at Date Recorded Not on file documented as of this encounter Last Filed Vital Signs Vital Sign Reading Time Taken Comments Blood Pressure 114/62 09/21/2010 4:22 PM REGROOVER Pulse 76 09/21/2010 4:22 PM REGROOVER Temperature 36.2 ??C (97.2 ??F) 09/21/2010 4:22 PM ORAL C: 3 6.2 C REGROOVER Respiratory Rate - - Oxygen Saturation - - Inhaled Oxygen Concentration - - Weight 46.8 kg (103 lb 1.4 09/21/2010 4:22 PM C: 46.8kg oz) REGROOVER Height 165.7 cm (5' 5.25) 09/21/2010 4:22 PM C: 165.7c m REGROOVER Body Mass Index 17.02 09/21/2010 4:22 PM REGROOVER Body Mass Index Percentile 3.85 % 09/21/2010 4:22 PM REGROOVER Growth Chart: CDC (Girls, 2-20 Years) documented [...] Shorthand Note completed on: 09/22/2010 4:52 PM OOVER documented in this encounter Plan of Treatment Not on filedocumented as of this encounter Visit Diagnoses Not on filedocumented in this encounter Care Teams Fire Suppression Captain Relationship Specialty Start Date End Date Dean Lawson MD PCP - General 10/31/10 05/07/12 [facility] [place] [address] documented as of this encounter
--- OUTSIDE RECORDS SUMMARY | 2022-04-29 17:04 | XMS_ITS | Encounter Summary ---
:1995 Author Organization [facility] Address [address] [place] [address] Care Team Providers Name Role Phone Alfredo Hampton MD Primary Care Provider Reason for Visit Reason Comments Refill Encounter Details Date Type Department Care Team Description 08/09/2014 Refill [facility] Alfredo Welch MD Refill [address] [place] [address] [place], [place] [address] (Wo rk) Social History Tobacco Use Types [...] Sig: follow package instructions (changed) Powered by [employer], Reference: [id number], 08/09/2014 12:26:13 AM AUTO AIR CONDITIONING APPRENTICE, Pool: PRLK REFILL ([id number]) Yudith Masters - 08/17/2014 3:48 PM CST [...] Provider: ALFREDO HAMPTON Ordering User: DEB BRIZUELA AIR CONDITIONING APPRENTICE documented in this encounter Miscellaneous Notes Letter - Alfredo Hampton MD - 08/09/2014 12:00 AM CST Images from the original note were not included. [facility] [address] [facility] [address] Renetta White [address] [place] [address] [place] [address] August 17, 2014 Dear Renetta White, We received your request for the following prescription(s): Orders Placed This Encounter Medications ??? desogestrel-ethinyl estradiol (APRI) 0.15-30 mg-mcg per tablet Sig: Take 1 tablet by mouth daily (every 24 hours). Follow package directions. Dispense: 84 tablet Refill: 0 Your request was approved. You will need an appointment with your provider before your next refill. Please call [facility] at [phone] to schedule an appointment within 30 days. Thank you for choosing [facility] for your health care needs. Your [facility] Primary Care Team AIR CONDITIONING APPRENTICE documented in this encounter Plan of Treatment Not on filedocumented as of this encounter Visit Diagnoses Not on filedocumented in this encounter Care Teams Carpenter Helper Maintenance Relationship Specialty Start Date End Date Alfredo Hampton MD PCP - General 05/08/12 [address] [place] [address] documented as of this encounter
--- OUTSIDE RECORDS SUMMARY | 2022-04-29 17:04 | XMS_ITS | Encounter Summary ---
:1995 Author Organization [facility] Address [address] [place] [address] Care Team Providers Name Role Phone Dean Lawson MD Primary Care Provider Reason for Visit Reason Comments Annual Exam Encounter Details Date Type Department Care Team Description 11/26/2011 Office Visit [facility] Genesis Hampton, Cont raception (Primary Medicine MD Dx) [address] [place] [place] [address] [place], [place] [phone] [address] Social History Tobacco Use Types Packs/Day [...] PM CDT Thank you for enrolling in [employer]. Please follow the instructions below to securely access your online medical record. [employer] allows you to send messages to your doctor, view your test results, renewyour prescriptions, schedule appointments, and more. How Do I Sign Up? 1. In your Internet browser, go to: [email or web address] 2. Click on the Sign Up Now link in the Sign In box. You will see the New Member Sign Up page. 3. Enter your [employer] Access Code exactly as it appears below. You will not need to use this code after you???ve completed the sign-up process. If you do not sign up before the expiration date, you must request a new code. [employer] Access Code: [email or web address] Expires: 12/26/11 03:29 PM 4. Enter your Social Security Number ([id number]) and Date of (mm/dd/yyyy) as indicated and click Submit. You will be taken to the next sign- up page. 5. Create a [facility] [facility] ID. This will be your [employer] login ID and cannot be changed, so think of one that is secure and easy to remember. 6. Create a [employer] password. You can change your password at any time. 7. Enter your Password Reset Question and Answer. This can be used at a later time if you forget your password. 8. Enter your e-mail address. You will receive e-mail notification when new information is availablein [employer]. 9. Click Sign Up. You can now view your medical record. Additional Information If you have questions, you can call [phone] to talk to our [employer] staff. Remember, [employer] is NOT to be used for urgent [...] ??? Not on file Social History Narrative [facility], next yeardating same man for 10 [...] management documented in this encounter Care Teams Campus Ambassador Relationship Specialty Start Date End Date Dean Lawson MD PCP - General 10/31/10 05/07/12 1415 [place] [address] documented as of this encounter
--- OUTSIDE RECORDS SUMMARY | 2022-04-29 17:04 | XMS_ITS | Encounter Summary ---
:1995 Author Organization [facility] Address [address] [place] [address] Care Team Providers Name Role Phone Alfredo Hampton MD Primary Care Provider Reason for Visit Reason Comments Refill Encounter Details Date Type Department Care Team Description 10/07/2012 Refill [facility] Alfredo Welch MD Refill [address] [place] [address] [place], [place] [address] (Wo rk) Social History Tobacco Use Types [...] on filedocumented in this encounter Care Teams Ice Cream Freezer Assistant Relationship Specialty Start Date End Date Alfredo Hampton MD PCP - General 05/08/12 [address] [place] [address] documented as of this encounter
--- OUTSIDE RECORDS SUMMARY | 2022-04-29 17:04 | XMS_ITS | Encounter Summary ---
:1995 Author Organization [facility] Address [address] [place] [address] Care Team Providers Name Role Phone Dean Lawson MD Primary Care Provider Encounter Details Date Type Department Care Team Description 04/25/2009 [facility] Genesis Welch MD [address] [place] [address] [place], [place] [address] (Wo rk) Social History [...] 1640 Note Time: 04/25/09 0001 Status: Signed Director Of Student Aid: Genesis Hampton MD (Physician) NAME: BROOK WHITE MR#: [id number] ACCT: [id number] VISIT: [id number] DICTATING CLINICIAN: Genesis Hampton MD CONFIRM #: [id number] LOC: 1402 CLINIC PROGRESS NOTE DATE OF [...] any midcycle cramping. She does have some mrwk-jk-doznxsjb acne. We spent 30 minutes today discussing [...] no apparent distress. She again does have oxjh-ts-xmaenwzz acne, primarily in the T-zone on her face. No evidence of pustules on her chest or back. ASSESSMENT: 1. Period control. 2. Acne. PLAN: She was placed on control pills. Will follow up with me in 3 months to check her blood pressure, sooner if she is having significant concerns. [id number] C: 04/26/09 07:52 CONFIRM #: [id number] documented in this encounter Plan of Treatment Not on filedocumented as of this encounter Visit Diagnoses Not on filedocumented in this encounter Care Teams Coal Sampler Relationship Specialty Start Date End Date Dean Lawson MD PCP - General 10/31/10 05/07/12 [address] [place] [address] documented as of this encounter
--- OUTSIDE RECORDS SUMMARY | 2022-04-29 17:04 | XMS_ITS | Encounter Summary ---
:1995 Author Organization [facility] Address [address] [place] [address] Care Team Providers Name Role Phone Dean Lawson MD Primary Care Provider Reason for Visit Reason Comments Other Encounter Details Date Type Department Care Team Description 09/08/2010 [facility] [address] [place] [address] Social History Tobacco Use Types Packs/Day Years Used Date Smoking Tobacco: Never Assessed Sex Assigned at Date Recorded Not on file documented as of this encounter Progress Notes Rose Marie Cruz - 09/08/2010 3:22 PM CST PRESCRIPTION REFILL Please provide enough refills to last until patient's next visit. Comment:- Pharmacy Seq #:-[phone] Pharmacy Name-Phone/Fax:-[facility] Pharmacy Street or City:-[place] Clinician Name:-Vy Bermudez Drug Name/Strength:-Apri 28 day [...] mother to make an appt. She agreed. ORATE ACCOUNTANT documented in this encounter Plan of Treatment Not on filedocumented as of this encounter Visit Diagnoses Not on filedocumented in this encounter Care Teams Vice President Network Development Relationship Specialty Start Date End Date Dean Lawson MD PCP - General 10/31/10 05/07/12 [facility] [place] [address] documented as of this encounter
--- OUTSIDE RECORDS SUMMARY | 2022-04-29 17:04 | XMS_ITS | Encounter Summary ---
:1995 Author Organization [facility] Address [address] [place] [address] Care Team Providers Name Role Phone Alfredo Hampton MD Primary Care Provider Reason for Visit Reason Comments Refill Encounter Details Date Type Department Care Team Description 02/06/2016 Refill [facility] Alfredo Welch MD Refill [address] [place] [address] [place], [place] [address] (Wo rk) Social History Tobacco Use Types [...] DBP: 78.0mm Hg on 12/17/2014 Powered by [employer], Reference: [id number], 02/06/2016 1:07:13 AM CDT, Pool: EDENK REFILL ([id number]) María Layne - 02/06/2016 3:18 PM CDT Appointment Letter Sent ICATION SUPERVISOR Aminata Fitzgerald RN - 02/06/2016 11:36 AM [...] from the original note were not included. [facility] Renetta White [address] [facility] [address] February 06, 2016 Dear Renetta L Christopher, We recently received a renewal request for your prescription(s). While reviewing your chart, we noticed that you are due for a visit with your doctor. To receive future refills, please schedule an office visit within the next month. At [facility], your health care is important to us. Please call [phone] to schedule an appointment. Thank you for choosing [facility] for your health care needs. Your [facility] Primary Care Team ICATION SUPERVISOR documented in this encounter Plan of Treatment Not on filedocumented as of this encounter Visit Diagnoses Not on filedocumented in this encounter Care Teams Dairy Farm Worker Relationship Specialty Start Date End Date Alfredo Hampton MD PCP - General 05/08/[address] [place] [address] documented as of this encounter
--- OUTSIDE RECORDS SUMMARY | 2022-04-29 17:04 | XMS_ITS | Encounter Summary ---
:1993 Author Organization [facility] Address [address] [place] [address] Care Team Providers Name Role Phone Genesis Hampton MD Primary Care Provider Reason for Visit Reason Comments Annual Exam Encounter Details Date Type Department Care Team Description 06/23/2013 [facility], [facility] adult exam (Primary Dx); Medicine Contraception [address] [facility] [address] [place] [address] [place], [place] [phone] [address] Social History Tobacco Use Types Packs/Day Years Used Date Smoking Tobacco: Never Assessed Sex Assigned at Date Recorded Not on file documented as of this encounter Last Filed Vital Signs Vital Sign Reading Time Taken Comments Blood Pressure 110/70 06/23/2013 3:48 PM INTERVENTIONAL NURSE Pulse 84 06/23/2013 3:48 PM INTERVENTIONAL NURSE Temperature - - Respiratory Rate - - Oxygen Saturation - - Inhaled Oxygen Concentration - - Weight 53.8 kg (118 lb 11.2 oz) 06/23/2013 3:48 PM INTERVENTIONAL NURSE Height 166.4 cm (5' 5.5) 06/23/2013 3:48 PM INTERVENTIONAL NURSE Body Mass Index 19.45 06/23/2013 3:48 PM INTERVENTIONAL NURSE documented in this encounter Patient Instructions Patient InstructionsGenesis Hampton MD - 06/23/2013 4:03 PM CST 1. please have mom fax vaccine records to us RVENTIONAL NURSE documented in this encounter Progress Notes Genesis [...] Topics Concern ??? None Social History Narrative [facility], next year dating same man since 2010 [...] reviewed. 3. Follow up in one year RVENTIONAL NURSE documented in this encounter Plan of Treatment Not on filedocumented as of this encounter Visit Diagnoses Diagnosis Well adult exam - Primary Routine general medical examination at a health care facility Contraception Unspecified contraceptive management documented in this encounter Care Teams Engineering Psychologist Relationship Specialty Start Date End Date Genesis Hampton MD PCP - General 05/08/12 [address] [place] [address] documented as of this encounter
--- OUTSIDE RECORDS SUMMARY | 2022-04-29 17:04 | XMS_ITS | Encounter Summary ---
:1995 Author Organization [facility] Address [address] [place] [address] Care Team Providers Name Role Phone Genesis Hampton MD Primary Care Provider Reason for Visit Reason Comments Refill Encounter Details Date Type Department Care Team Description 12/23/2012 Refill [facility] Genesis Welch MD Refill [address] [place] [address] [place], [place] [address] (Wo rk) Social History Tobacco Use Types [...] on filedocumented in this encounter Care Teams Police Liaison Relationship Specialty Start Date End Date Genesis Hampton MD PCP - General 05/08/12 [address] [place] [address] documented as of this encounter
--- OUTSIDE RECORDS SUMMARY | 2022-04-29 17:04 | XMS_ITS | Encounter Summary ---
:1995 Author Organization [facility] Address [address] [place] [address] Care Team Providers Name Role Phone Alfredo Hampton MD Primary Care Provider Reason for Visit Reason Comments Refill APRI 0.15-30 MG-MCG tablet [ Pharmacy Med Name: APRI 28 DAY TABLET] Encounter Details Date Type Department Care Team Description 08/17/2018 [facility] Hampton MD Refill (APRI 0.15-30 Medicine [address] MG-MCG tablet [Pharmacy [address] Med Name: APRI [address] [place] [address] TABLET]) [place] [address] [phone] Social History Tobacco Use Types Packs/Day Years [...] Patient has appointment on 2018. Closing encounter. ET INSPECTOR Candi Mcknight, RN - 08/17/2018 6:04 PM CST OFFICE APPOINTMENT NEEDED Please notify patient to schedule an appointment within 30 days. Requested Prescriptions Pending Prescriptions Disp Refills ??? APRI 0.15-30 MG-MCG tablet [Pharmacy Med Name: APRI 28 DAY TABLET] 84 Tablet Sig: TAKE 1 TAB BY MOUTH DAILY. ET INSPECTOR Interface, Out Surescripts Prov Query - 08/17/2018 [...] 56 mm Hg on 07/12/2017 Powered by [employer], Reference: [id number], 08/17/2018 10:33:36 AM FALGUNI, Pool: JEFE REFILL ([id number]) ET INSPECTOR documented in this encounter Plan of Treatment Not on filedocumented as of this encounter Visit Diagnoses Diagnosis Encounter for surveillance of contracept ba pills Surveillance of previously prescribed co ntraceptive pill documented in this encounter Care Teams Knife Setter Assembler Relationship Specialty Start Date End Date Alfredo Hampton MD PCP - General 05/08/12 [address] [place] [address] documented as of this encounter
--- OUTSIDE RECORDS SUMMARY | 2022-04-29 17:04 | XMS_ITS | Encounter Summary ---
:1995 Author Organization [facility] Address [address] [place] [address] Care Team Providers Name Role Phone Dean Shine MD Primary Care Provider Encounter Details Date Type Department Care Team Description 04/27/2008 Office Visit [facility] Dean Shine MD [address] [facility] . [address] [place] [address] [place], [place] [address] (Wo rk) Social History Tobacco Use Types [...] 0725 Note Time: 04/27/08 0001 Status: Signed Sider Mechanic: Dean Shine MD (Physician) NAME: BROOK WHITE MR#: [id number] ACCT: [id number] VISIT: [id number] DICTATING CLINICIAN: DEAN SHINE MD CONFIRM #: [id number] LOC: 1202 CLINIC PROGRESS NOTE DATE OF [...] if lesion persists, otherwise p.r.n. ASSESSMENT: PLAN: [facility]:[id number] C: 04/28/08 12:47 CONFIRM #: [id number] documented in this encounter Plan of Treatment Not on filedocumented as of this encounter Visit Diagnoses Not on filedocumented in this encounter Care Teams Warehouse Forklift Operator Relationship Specialty Start Date End Date Dean Shine MD PCP - General 10/31/10 05/07/12 [address] [place] [address] documented as of this encounter
--- OUTSIDE RECORDS SUMMARY | 2022-04-29 17:04 | XMS_ITS | Encounter Summary ---
:1995 Author Organization [facility] Address [address] [place] [address] Care Team Providers Name Role Phone Genesis Hampton MD Primary Care Provider Reason for Visit Reason Comments Annual Exam Encounter Details Date Type Department Care Team Description 12/17/[facility], [facility] adult exam (Primary Dx); Medicine MD Screen for STD (sexually transmitted dis ease); [address] Con traception; 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 gonorrhoeae STD Negative Negative HP CONVERSI ON Comment: Test Performed by Data Center Consultant Mediated Amplification Performed at [facility], [address] [place] [address] CLIA Number [id number] Source STD Cervix HP CONVERSION Comment: CLIA Number [id number] Specimen Anatomical Collection Method Collection Time Receive [...] - 12/24/2014 3:25 PM CDT Performed at [facility], [address] [place] [address] FINAL GYNECOLOGICAL CYTOLOGY REPORT Pathology #: [id number] ?Date Obtained: 12/17/2014 ? Date Received: 12/21/2014 [...] Genesis Hampton MD LAB_1 Performing Organization Address City/[facility] Code Phon e Number HP CONVERSION Pap Smear Order (12/17/2014 11:35 AM CDT) [facility] Method Time Signature Pap Smear Collected HP CONVERSION Monolayer tracking test Specimen Anatomical Collection Method Collection Time Receive d Time (Source) Location / / Volume Laterality 12/17/2014 11:35 12/21/2014 4:51 AM CDT AM CDT Narrative HP CONVERSION - 12/24/2014 3:21 PM CDT Performed at [facility], [facility] [place] [address] Genesis Hampton MD LAB_1 Performing Organization Address [...] Need for prophylactic vaccination with c ombined slcmthgdgv-afxyhvv-lbiwtzebr (DTP) vaccine documented in this encounter Care Teams Christmas Tree Farm Worker Relationship Specialty Start Date End Date Genesis Hampton MD PCP - General 05/08/12 [address] [place] [address] documented as of this encounter
--- OUTSIDE RECORDS SUMMARY | 2022-04-29 17:04 | XMS_ITS | Encounter Summary ---
:1995 Author Organization [facility] Address [address] [place] [address] Care Team Providers Name Role Phone Dean Lawson MD Primary Care Provider Reason for Visit Reason Comments IMMUNIZATIONS Encounter Details Date Type Department Care Team Description 04/03/2011 [facility], combined Medicine vaccine (Primary Dx) [address] . [place] [address] Social History Tobacco Use Types Packs/Day Years Used Date Smoking Tobacco: Never Assessed Sex Assigned at Date Recorded Not on file documented as of this encounter Plan of Treatment Not on filedocumented as of this encounter Visit Diagnoses Diagnosis Immunization, combined vaccine - Primary Need for prophylactic vaccination with u nspecified combined vaccine documented in this encounter Care Teams Utility Bill Collection Clerk Relationship Specialty Start Date End Date Dean Lawson MD PCP - General 10/31/10 05/07/12 1415 [facility] [place] [address] documented as of this encounter
--- OUTSIDE RECORDS SUMMARY | 2022-04-29 17:04 | XMS_ITS | Clinical Summary ---
:1995 Author Organization [facility] Address [address] [place] [address] Care Team Providers Name Role Phone Genesis [...] for each transition of care or referral. [facility] Allergies Active Allergy Reactions Severity Noted Date Comments Nitrofurantoin Hives High 2018 Other Hives High 2018 [place]; pt mo m reported Medications Medication Sig [...] Comments Blood Pressure 115/71 2018 4:11 PM STEAM BOX TENDER Pulse 96 2018 4:11 PM STEAM BOX TENDER Temperature 36.2 ??C (97.2 ??F) 09/21/2010 4:22 PM ORAL C: 3 6.2 C STEAM BOX TENDER Respiratory Rate - - Oxygen Saturation - - Inhaled Oxygen Concentration - - Weight 48.9 kg (107 lb 14.4 2018 4:11 PM oz) STEAM BOX TENDER Height 165.6 cm (5' 5.2) 2018 4:11 PM STEAM BOX TENDER Body Mass Index 17.85 2018 4:11 PM STEAM BOX TENDER Plan of Treatment Health Maintenance Due Date [...] ss Type Group BCBS BCBS OUT OF [id number] 2017-[place] [address] [place] [address] (Home) [place] [address] Renetta White Personal/Family Self [address] (Home) [place] [phone] [place] (Work) [address] Care Teams Grinder Brake Lining Relationship Specialty Start Date End Date Genesis Hampton MD PCP - General 05/08/12 [address] [facility] [place] [id number]
--- OUTSIDE RECORDS SUMMARY | 2022-04-29 17:04 | XMS_ITS | Encounter Summary ---
:1995 Author Organization [facility] Address [address] [place] [address] Care Team Providers Name Role Phone Genesis Hampton MD Primary Care Provider Reason for Visit Reason Comments Annual Exam Not Fasting Other New Partner Encounter Details Date Type Department Care Team Description 07/12/2017 [facility] Genesis Hampton, [facility] adult exam (Primary Dx); Medicine Encounter for surveillance of contracept ba pills; [address] Pap smear for cervical cancer screening; [address] Screen for STD (sexually transmitted dis [place]) [place] [address] [place], [place] [phone] Social History Tobacco Use Types Packs/Day Years [...] Comments Blood Pressure 110/56 07/12/2017 1:10 PM CONVERTING OPERATOR Pulse 60 07/12/2017 1:10 PM CONVERTING OPERATOR Temperature - - Respiratory Rate - - Oxygen Saturation - - Inhaled Oxygen Concentration - - Weight 49.9 kg (110 lb) 07/12/2017 1:10 PM CONVERTING OPERATOR Height 166.4 cm (5' 5.5) 07/12/2017 1:10 PM CONVERTING OPERATOR Body Mass Index 18.03 07/12/2017 1:10 PM CONVERTING OPERATOR documented in this encounter Progress Notes Nhung [...] cancer screening or your test results, call [phone]. Sincerely, Nhung Figueroa RN on behalf of Dr. Dory Edwards, Pre Sales Systems Engineer [facility] Cervical Cancer Screening and Management ERTING OPERATOR Genesis Hampton MD - 07/12/2017 1:15 PM [...] reviewed. 3. Follow up in one year ERTING OPERATOR documented in this encounter Plan of Treatment Not on filedocumented as of this encounter Procedures Procedure Name Priority Date/Time Associated Diagnosis Comme nts PAP TEST ORDER Routine 07/12/2017 3:17 PM Pap smear for Result s for this CONVERTING OPERATOR cervical cancer procedure ar e in screening the results section. ANATOMICAL PATH Routine 07/12/2017 3:17 PM Result s for this LIQUID BASED CONVERTING OPERATOR procedure are i n the results section. CHLAMYDIA & GC (14 Routine 07/12/2017 3:17 PM Screen for STD R esults for this YEARS AND OLDER) CONVERTING OPERATOR (sexually procedure a re in transmitted disease) the res ults section. documented in this encounter Results Pap Smear (07/12/2017 3:17 PM CONVERTING OPERATOR) Specimen (Source) Anatomical Collection Method Collection Time Re ceived Time Location / / Volume Laterality 07/12/2017 3:17 PM CONVERTING OPERATOR Narrative PN SOFT - 07/16/2017 12:01 PM CONVERTING OPERATOR FINAL GYNECOLOGICAL CYTOLOGY REPORT Pathology #: [id number] ?Date Obtained: 07/12/2017 ? Date Received: 07/15/2017 [...] report s may occur[place] [address] Genesis Hampton MD LAB_1 Performing Organization Address [facility] Phon e Number PN SOFT [address] [place] [address] [phone] Chlamydia and GC STD (07/12/2017 3:17 PM CONVERTING OPERATOR) [facility] Method Time Signature Chlamydia Negative Negative PN SOFT Trachomatis STD Comment: Test Performed by Master In Chancery Mediated Amplification CLIA Number [id number] N. gonorrhoeae STD Negative Negative PN SOFT Comment: Test Performed by Master In Chancery Mediated Amplification Performed at [facility], [address] [place] [address] ??[address] CLIA Number [id number] Source STD Cervix PN SOFT Comment: CLIA Number [id number] Specimen Anatomical Collection Method Collection Time Receive d Time (Source) Location / / Volume Laterality 07/12/2017 3:17 PM 7 9:09 CONVERTING OPERATOR PM CONVERTING OPERATOR Genesis Hampton MD LAB_1 Performing Organization Address [facility] Phon e Number PN SOFT [address] [place] [address] [phone] Pap Test Order (07/12/2017 3:17 PM CONVERTING OPERATOR) Analysis Performed At Patho logist Time Signature Pap Smear Collected PN SOFT Monolayer tracking test Specimen Anatomical Collection Method Collection Time Receive d Time (Source) Location / / Volume Laterality 07/12/2017 3:17 PM 7 CONVERTING OPERATOR 10:26 PM CONVERTING OPERATOR Narrative PN SOFT - 07/12/2017 3:17 PM CONVERTING OPERATOR Performed at [facility], [address] [place] [address] CLIA number [id number] Genesis Hampton MD LAB_1 Performing Organization Address City/State/ZIP Code Phon e Number PN SOFT [address] [place] [address] documented in this encounter Visit Diagnoses Diagnosis [...] se documented in this encounter Care Teams Sidewalk Repairer Relationship Specialty Start Date End Date Genesis Hampton MD PCP - General 05/08/12 [address] [place] [address] documented as of this encounter
--- OUTSIDE RECORDS SUMMARY | 2022-04-29 17:04 | XMS_ITS | Encounter Summary ---
:1995 Author Organization [facility] Address [address] [place] [address] Care Team Providers Name Role Phone Dean Lawson MD Primary Care Provider Encounter Details Date Type Department Care Team Description 07/18/2009 [facility] Vy Bermudez PA-C [address] [place] [address] [place], [place] [address] (Wo rk) Social History Tobacco Use Types Packs/Day Years Used Date Smoking Tobacco: Never Assessed Sex Assigned at Date Recorded Not on file documented as of this encounter Last Filed Vital Signs Vital Sign Reading Time Taken Comments Blood Pressure 102/56 07/18/2009 4:23 PM WEIGHT AND TEST BAR CLERK Pulse 78 07/18/2009 4:23 PM WEIGHT AND TEST BAR CLERK Temperature - - Respiratory Rate - - Oxygen Saturation - - Inhaled Oxygen Concentration - - Weight 45.4 kg (99 lb 15.7 oz) 07/18/2009 4:23 PM WEIGHT AND TEST BAR CLERK C : 45.4kg Height - - Body Mass Index - - documented in this encounter Progress Notes Vy Bermudez PA-C - 07/18/2009 12:01 AM CST Progress Notes signed by Vy Bermudez PA-C at 07/18/09 1934 Author: Vy Bermudez PA-C Service: (none) Author Type: Physician Computer Assembler Filed: 11/18/10 1850 Note Time: 07/18/09 0001 Status: Signed Pattern Hanger: Vy Bermudez PA-C (Resource) SUBJECTIVE: Follow-up of [...] discharged ambulatory and in stable condition. *SH~DNS~SOAP HT AND TEST BAR CLERK documented in this encounter Plan of Treatment Not on filedocumented as of this encounter Visit Diagnoses Not on filedocumented in this encounter Care Teams Massage Therapy Instructor Relationship Specialty Start Date End Date Dean Lawson MD PCP - General 10/31/10 05/07/12 [facility] [facility] [place] [address] documented as of this encounter
--- OUTSIDE RECORDS SUMMARY | 2022-04-29 17:04 | XMS_ITS | Encounter Summary ---
:1995 Author Organization [facility] Address [address] [place] [address] Care Team Providers Name Role Phone Dean Lawson MD Primary Care Provider Encounter Details Date Type Department Care Team Description 08/09/2008 Office Visit [facility] Dean Lawson MD [address] [facility] . [address] [place] [address] [place], [place] [address] (Wo rk) Social History Tobacco Use Types [...] (97 lb 15.9 oz) 08/09/2008 3:42 PM SERVICE ATTENDANT C : 44.5kg Height - - Body Mass Index - - documented in this encounter Progress Notes Dean Lawson MD - 08/09/2008 12:01 AM CST Progress Notes signed by Dean Lawson MD at 08/09/08 1605 Author: Dean Lawson MD Service: (none) Author Type: Physician Filed: 11/18/10 0955 Note Time: 08/09/08 0001 Status: Signed Lumber Bearer: Dean Lawson MD (Physician) Procedure Note: Skin [...] ~Shorthand Note completed on: 08/09/2008 4:05 PM ICE ATTENDANT documented in this encounter Plan of Treatment Not on filedocumented as of this encounter Visit Diagnoses Not on filedocumented in this encounter Care Teams Public Records Researcher Relationship Specialty Start Date End Date Dean Lawson MD PCP - General 10/31/10 05/07/12 1415 [facility] [place] [address] documented as of this encounter
--- OUTSIDE RECORDS SUMMARY | 2022-04-29 17:04 | XMS_ITS | Encounter Summary ---
:1995 Author Organization [facility] Address [address] [place] [address] Care Team Providers Name Role Phone Alfredo Hampton MD Primary Care Provider Reason for Visit Reason Comments Refill APRI 0.15-30 MG-MCG tablet [ Pharmacy Med Name: APRI 28 DAY TABLET] Encounter Details Date Type Department Care Team Description 10/08/2019 Refill [place] [facility] Chris Hampton MD Refill (APRI 0.15-30 Medicine [address] MG-MCG tablet [Pharmacy [address] Med Name: APRI [address] [place] [address] TABLET]) [place] [address] [phone] Social History Tobacco Use Types Packs/Day Years [...] TABLET BY MOUTH EVERY DAY Interface, Out [employer] Prov Query - 10/08/2019 4:38 AM CDT [...] 71 mm Hg on 2018 Powered by [employer], Reference: [id number], 10/08/2019 4:38:47 AM CDT, Pool: EDENK REFILL ([id number]) documented in this encounter Plan of Treatment Not on filedocumented as of this encounter Visit Diagnoses Diagnosis Encounter for surveillance of contracept ba pills Surveillance of previously prescribed co ntraceptive pill documented in this encounter Care Teams Benzene Still Utility Operator Relationship Specialty Start Date End Date Alfredo Hampton MD PCP - General 05/08/12 [address] [place] [address] documented as of this encounter
--- OUTSIDE RECORDS SUMMARY | 2022-04-29 17:04 | XMS_ITS | Encounter Summary ---
:1995 Author Organization [facility] Address [address] [place] [address] Care Team Providers Name Role Phone Genesis Hampton MD Primary Care Provider Reason for Visit Reason Comments Annual Exam nonfasting Encounter Details Date Type Department Care Team Description 2018 [facility] Genesis Hampton, Carmen al physical exam (Primary Dx); Medicine Screening for cervical cancer; [address] Scr eening for STDs (sexually transmitted diseases); [address] Encounter for surveillance [place] [address] [place] [phone] [address] Social History Tobacco Use Types Packs/Day [...] Comments Blood Pressure 115/71 2018 4:11 PM COMPUTER ARCHITECT Pulse 96 2018 4:11 PM COMPUTER ARCHITECT Temperature - - Respiratory Rate - - Oxygen Saturation - - Inhaled Oxygen Concentration - - Weight 48.9 kg (107 lb 14.4 oz) 2018 4:11 PM COMPUTER ARCHITECT Height 165.6 cm (5' 5.2) 2018 4:11 PM COMPUTER ARCHITECT Body Mass Index 17.85 2018 4:11 PM COMPUTER ARCHITECT documented in this encounter Progress Notes Genesis [...] Asked Social History Narrative dating 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 Nitrofurantoin Hives ??? Other Hives [place]-[facility]; pt mom reported History: LMP: Patient's last [...] shot 3. Follow up in one year UTER ARCHITECT Myrna Krishna RN - 2018 4:30 PM [...] cancer screening or your test results, call [phone]. Sincerely, Myrna Krishna RN on behalf of Dr. Dory Edwards, Implementation Manager [facility] Cervical Cancer Screening and Management UTER ARCHITECT documented in this encounter Plan of Treatment Not on filedocumented as of this encounter Procedures Procedure Name Priority Date/Time Associated Diagnosis Comme nts PAP TEST ORDER Routine 2018 4:48 PM Screening for Result s for this COMPUTER ARCHITECT cervical cancer procedure ar e in the results section. ANATOMICAL PATH Routine 2018 4:48 PM Result s for this LIQUID BASED COMPUTER ARCHITECT procedure are i n the results section. CHLAMYDIA & GC (14 Routine 2018 4:[address] Ds Results for this YEARS AND OLDER) COMPUTER ARCHITECT (sexually procedure a re in transmitted the results diseases) section. documented in this encounter Results Pap Smear (2018 4:48 PM COMPUTER ARCHITECT) Specimen (Source) Anatomical Collection Method Collection Time Re ceived Time Location / / Volume Laterality 2018 4:48 PM COMPUTER ARCHITECT Narrative PN SOFT - 08/30/2018 11:40 AM COMPUTER ARCHITECT FINAL GYNECOLOGICAL CYTOLOGY REPORT Pathology #: [id number] ?Date Obtained: 2018 ? Date Received: 08/29/2018 [...] false-negative report s may occur. Performed at [facility], [facility] [place] [address] Genesis Hampton MD LAB_1 Performing Organization Address City/State/ZIP Code Phon e Number PN SOFT [address] [place] [address] Chlamydia and GC STD (2018 4:48 PM COMPUTER ARCHITECT) Patholo gist Method Time Signature Chlamydia Negative Negative PN SOFT Trachomatis STD Comment: Test Performed by It Software Engineer Mediated Amplification CLIA Number [id number] N. gonorrhoeae STD Negative Negative PN SOFT Comment: Test Performed by It Software Engineer Mediated Amplification Performed at [facility], [address] ??[address] CLIA Number [id number] Source STD Cervix PN SOFT Comment: CLIA Number [id number] Specimen Anatomical Collection Method Collection Time Receive d Time (Source) Location / / Volume Laterality 2018 4:48 PM 9 9:10 COMPUTER ARCHITECT PM COMPUTER ARCHITECT Genesis Hampton MD LAB_1 Performing Organization Address City/[facility] Phon e Number PN SOFT [address] [place] [address] Pap Test Order (2018 4:48 PM COMPUTER ARCHITECT) Analysis Performed At [facility] logist Time Signature Pap Smear Collected PN SOFT Monolayer tracking test Specimen Anatomical Collection Method Collection Time Receive d Time (Source) Location / / Volume Laterality 2018 4:48 PM 9 3:18 COMPUTER ARCHITECT AM COMPUTER ARCHITECT Narrative PN SOFT - 2018 4:49 PM COMPUTER ARCHITECT Performed at [address] [address] CLIA number [id number] Genesis Hampton MD LAB_1 Performing Organization Address City/[facility] Phon e Number PN SOFT [address] [place] [address] documented in this encounter Visit Diagnoses Diagnosis [...] pill documented in this encounter Care Teams Collateral Specialist Relationship Specialty Start Date End Date Genesis Hampton MD PCP - General 05/08/12 [address] [place] [address] documented as of this encounter
--- OUTSIDE RECORDS SUMMARY | 2022-04-29 17:04 | XMS_ITS | Encounter Summary ---
:1995 Author Organization [facility] Address [address] [place] [address] Care Team Providers Name Role Phone Genesis Hampton MD Primary Care Provider Encounter Details Date Type Department Care Team Description 01/09/2021 emma Ly [phone] Social History Tobacco Use Types Packs/Day Years [...] [facility] [address] [place] [address] Treatment Plan Self Care Tip Topics Avoid [...] None Current orders cephalexin (cephalexin) Allergies None Zopim Information [facility] by [employer] We are an online clinic open 18/02. If you have any questions or comments about this visit, please call or email . documented in this encounter Plan of Treatment Not on filedocumented as of this encounter Visit Diagnoses Not on filedocumented in this encounter Care Teams Wheel Polisher Relationship Specialty Start Date End Date Genesis Hampton MD PCP - General 05/08/12 [address] [place] [address] documented as of this encounter
--- OUTSIDE RECORDS SUMMARY | 2022-04-29 17:04 | XMS_ITS | Encounter Summary ---
:1995 Author Organization [facility] Address [address] [place] [address] Care Team Providers Name Role Phone Dean Lawson MD Primary Care Provider Reason for Visit Reason Comments Refill Encounter Details Date Type Department Care Team Description 11/03/2011 Refill [facility] Genesis Welch MD Refill [address] [place] [address] [address] [place] [address] [phone] (Wo rk) Social History Tobacco Use Types [...] on filedocumented in this encounter Care Teams Ad Copy Writer Relationship Specialty Start Date End Date Dean Lawson MD PCP - General 10/31/10 05/07/12 [address] [place] [place] [address] documented as of this encounter
--- OUTSIDE RECORDS SUMMARY | 2022-04-29 17:04 | XMS_ITS | Encounter Summary ---
:1995 Author Organization [facility] Address [address] [place] [address] Care Team Providers Name Role Phone Dean Shine MD Primary Care Provider Encounter Details Date Type Department Care Team Description 06/28/2008 Office Visit [facility] Dean Shine MD [address] [facility] . [address] [place] [address] [place], [place] [address] (Wo rk) Social History Tobacco Use Types Packs/Day Years Used Date Smoking Tobacco: Never Assessed Sex Assigned at Date Recorded Not on file documented as of this encounter Last Filed Vital Signs Vital Sign Reading Time Taken Comments Blood Pressure 104/66 06/28/2008 3:52 PM ECD Pulse - - Temperature - - Respiratory Rate - - Oxygen Saturation - - Inhaled Oxygen Concentration - - Weight 45.8 kg (100 lb 15.9 oz) 06/28/2008 3:52 PM ECD C: 45.8kg Height - - Body Mass Index - - documented in this encounter Progress Notes Dean Shine MD - 06/28/2008 12:01 AM CST Progress Notes signed by Dean Shine MD at 07/13/08 0814 Author: Dean Shine MD Service: (none) Author Type: Physician Filed: 11/18/10 0856 Note Time: 06/28/08 0001 Status: Signed Planning Technician: Dean Shine MD (Physician) NAME: BROOK WHITE MR#: [id number] ACCT: [id number] VISIT: [id number] DICTATING CLINICIAN: DEAN SHINE MD CONFIRM #: [id number] LOC: 1202 CLINIC PROGRESS NOTE DATE OF [...] for retreatment in 3 to 4 weeks. [facility]:[id number] C: 06/29/08 09:18 CONFIRM #: [id number] documented in this encounter Plan of Treatment Not on filedocumented as of this encounter Procedures Procedure Name Priority Date/Time Associated Diagnosis Comme nts XR FOOT RT 3+ VIEWS Routine 06/28/2008 4:39 PM Re sults for this ECD procedure are i n the results section. documented in this encounter Results XR Foot Rt 3+ Views (06/28/2008 4:39 PM ECD) Anatomical Region Laterality Modality Lower Extremity, Foot Other Specimen (Source) Anatomical Location Collection Method / Collectio n Time Received Time / Laterality Volume Narrative 06/28/2008 4:39 PM ECD No acute or significant bone or joint abnormality. [id number] Dictating MARIO GREY RADIOLOGIST Procedure Note Mario Molina - 09/27/2016Formatting o f this note might be different from the original. No acute or significant bone or joint ab normality. [id number] Dictating MARIO GREY RADIOLOGIST Dean Shine MD RAD GD documented in this encounter Visit Diagnoses Not on filedocumented in this encounter Care Teams Rush Seater Relationship Specialty Start Date End Date Dean Shine MD PCP - General 10/31/10 05/07/12 [address] [place] [address] documented as of this encounter
--- OUTSIDE RECORDS SUMMARY | 2022-04-29 17:04 | XMS_ITS | Encounter Summary ---
:1995 Author Organization [facility] Address [address] [place] [address] Care Team Providers Name Role Phone Genesis Hampton MD Primary Care Provider Reason for Visit Reason Comments Annual Exam MOLE Encounter Details Date Type Department Care Team Description 03/30/2016 [facility] Hampton, Well adult exam (Primary Dx); Medicine Encounter for surveillance of contracept ba pills; [address] Pap smear for cervical cancer screening; [address] Screen for STD (sexually transmitted dis ease) [place] [address] [place] [phone] [address] Social History Tobacco Use Types Packs/Day Years [...] encounter Progress Notes Genesis Hampton MD - 03/30/2016 10:37 AM CDT [...] or bloody stools. No urinary tract symptoms. UNIT CONTROL CLERK ROS: normal menses, no abnormal bleeding, pelvic [...] escutcheon. Vulva and vagina well estrogenized. Bartholyn's, Dunkirk's and urethral conduits without lesion or exudation. [...] CDT FINAL GYNECOLOGICAL CYTOLOGY REPORT Pathology #: [id number] ?Date Obtained: 03/30/2016 ? Date Received: 04/03/2016 INTERPRETATION/RESULTS: Negative for Intraepithelial Lesion or M alignancy. SPECIMEN ADEQUACY: Satisfactory for Evaluation. ??No endoce rvical cells/transformation zone component present. Verified on 04/04/2016 ??by ROSE MAREI HALE (electronic signature) CLINICAL NOTES: ?Abnormal bleeding: [...] false-negative report s may occur. Performed at [place] [address] [place] [address] Genesis Hampton MD LAB_1 Performing Organization Address City/State/ZIP Code Phon e Number PN SOFT [address] [place] [address] [phone] Chlamydia and GC STD (03/30/2016 11:35 AM CDT) [facility] Method Time Signature Chlamydia Negative Negative PN SOFT Trachomatis STD Comment: Test Performed by Rehab Services Aide Mediated Amplification CLIA Number [id number] N. gonorrhoeae STD Negative Negative PN SOFT Comment: Test Performed by Rehab Services Aide Mediated Amplification Performed at [facility], [address] ??[address] CLIA Number [id number] Source STD Cervix PN SOFT Comment: CLIA Number [id number] Specimen Anatomical Collection Method Collection Time Receive d Time (Source) Location / / Volume Laterality 03/30/2016 11:35 03/30/2016 3:38 AM CDT PM CDT Genesis Hampton MD LAB_1 Performing Organization Address [facility] Phon e Number PN SOFT [address] [place] [address] Pap Test Order (03/30/2016 11:35 AM CDT) Analysis Performed At [facility] Time Signature Pap Smear Collected PN SOFT Monolayer tracking test Specimen Anatomical Collection Method Collection Time Receive d Time (Source) Location / / Volume Laterality 03/30/2016 11:35 04/03/2016 6:00 AM CDT AM CDT Genesis Hampton MD LAB_1 Performing Organization Address [facility] Phon e Number PN SOFT [address] [place] [address] documented in this encounter Visit Diagnoses Diagnosis [...] se documented in this encounter Care Teams Transition Manager Relationship Specialty Start Date End Date Genesis Hampton MD PCP - General 05/08/12 [address] [place] [address] documented as of this encounter
--- OUTSIDE RECORDS SUMMARY | 2022-04-29 17:04 | XMS_ITS | Encounter Summary ---
:1995 Author Organization [facility] Address [address] [place] [address] Care Team Providers Name Role Phone Dean Lawson MD Primary Care Provider Encounter Details Date Type Department Care Team Description 04/27/2008 PN Conversion Only [place] CONVERSION [address] [place] [address] Social History Tobacco Use Types Packs/Day Years Used Date Smoking Tobacco: Never Assessed Sex Assigned at Date Recorded Not on file documented as of this encounter Plan of Treatment Not on filedocumented as of this encounter Visit Diagnoses Not on filedocumented in this encounter Care Teams Sub Prior Relationship Specialty Start Date End Date Dean Lawson MD PCP - General 10/31/10 05/07/12 [facility] [place] [place] [address] documented as of this encounter
[2022-04-29 17:51] LABS: Amnisure Rom* Negative
[2022-04-29 17:59] LABS: Clue Cells >20% Clue Cells Seen (None Seen); Trichomonas No Trichomonas Seen (None Seen); Yeast No Yeast Seen (None Seen)
--- NOTE | 2022-04-29 18:29 | PC.OBNST ---
NST Note NST Note Start: 04/29/22 16:49 Freq: ONCE Status: Active Protocol: Document 04/29/22 18:26 AM (Rec: 04/29/22 18:28 AM [id number]) NST Note 2 Para (# of births) 0 EDC 05/20/22 Gestational Age In Weeks & Days 37 Weeks & 0 Days Patient Presented with Complaint(s) of Leaking fluid Reactive Yes Appropriate for Gestational Age Yes CECIL Nunez RNC Date 04/29/22 Reactive Yes Appropriate for Gestational Age Yes CECIL New RNC Date 04/29/22 OB NST charge Yes Complete NST Note via Write Note Yes The provider's electronic signature indicates the NST is reactive/appropriate for gestational age. *Note to provider: If an addendum is required, open the patient's chart and click on the note under the Nurse/Allied Health tab.
[2022-04-29 18:52] VITALS: BP 121/75; PULSE 95
[2022-04-29] MEDS: metroNIDAZOLE 500 MG TABLET PO (19:07)
== END 2022-04-29 19:10 | disposition home or self-care (01) ==
LOC: OB OUT 17:02 → OB 17:02
PROVIDERS: Visit Provider Advanced Practice Midwife
DX: O47.03 False labor before 37 completed weeks of gestation, third trimester (principal); Z3A.37 37 weeks gestation of pregnancy
CPT/HCPCS: 59025; 84112; 87210; 99213; A9270

== ENCOUNTER 2022-05-19 13:50 | Inpatient (IN) | payer MEDICAID, SELFPAY ==
[2022-05-19] VITALS (8 sets, daily range): BP systolic 121–132; BP diastolic 70–90; PULSE 70–91; RESP 16; TEMP 36.8–36.9; O2SAT 98; BMI 30.5
--- OUTSIDE RECORDS SUMMARY | 2022-05-19 11:44 | XMS_ITS | Encounter Summary ---
:1995 Author Organization [facility] Address [address] [place] [address] Care Team Providers Name Role Phone Genesis Hampton MD Primary Care Provider Reason for Visit Reason Comments Annual Exam Not Fasting Other New Partner Encounter Details Date Type Department Care Team Description 07/12/2017 [facility], [facility] adult exam (Primary Dx); Medicine MD Encounter for surveillance of contracept ba pills; [address] Pap smear for cervical cancer screening; [address] Screen for STD (sexually transmitted dis ease) [place] [address] [place], [place] [phone] [address] Social History Tobacco Use Types Packs/Day Years Used Date Smoking Tobacco: Former Smokeless Tobacco: Never Alcohol Use Standard Drinks/Week Comments Yes 1 (1 standard drink = 0.6 oz pure alcoho l) rarely Sex Assigned at Date Recorded Not on file documented as of this encounter Last Filed Vital Signs Vital Sign Reading Time Taken Comments Blood Pressure 110/56 07/12/2017 1:10 PM SALES AND MARKETING ENGINEER Pulse 60 07/12/2017 1:10 PM SALES AND MARKETING ENGINEER Temperature - - Respiratory Rate - - Oxygen Saturation - - Inhaled Oxygen Concentration - - Weight 49.9 kg (110 lb) 07/12/2017 1:10 PM SALES AND MARKETING ENGINEER Height 166.4 cm (5' 5.5) 07/12/2017 1:10 PM SALES AND MARKETING ENGINEER Body Mass Index 18.03 07/12/2017 1:10 PM SALES AND MARKETING ENGINEER documented in this encounter Progress Notes Nhung [...] cancer screening or your test results, call [phone]. Sincerely, Nhung Figueroa RN on behalf of Dr. Dory Edwards, Manager Legal [facility] Cervical Cancer Screening and Management S AND MARKETING ENGINEER Genesis Hampton MD - 07/12/2017 1:15 PM [...] reviewed. 3. Follow up in one year S AND MARKETING ENGINEER documented in this encounter Plan of Treatment Not on filedocumented as of this encounter Procedures Procedure Name Priority Date/Time Associated Diagnosis Comme nts PAP TEST ORDER Routine 07/12/2017 3:17 PM Pap smear for Result s for this SALES AND MARKETING ENGINEER cervical cancer procedure ar e in screening the results section. ANATOMICAL PATH Routine 07/12/2017 3:17 PM Result s for this LIQUID BASED SALES AND MARKETING ENGINEER procedure are i n the results section. CHLAMYDIA & GC (14 Routine 07/12/2017 3:17 PM Screen for STD R esults for this YEARS AND OLDER) SALES AND MARKETING ENGINEER (sexually procedure a re in transmitted disease) the res ults section. documented in this encounter Results Pap Smear (07/12/2017 3:17 PM SALES AND MARKETING ENGINEER) Specimen (Source) Anatomical Collection Method Collection Time Re ceived Time Location / / Volume Laterality 07/12/2017 3:17 PM SALES AND MARKETING ENGINEER Narrative PN SOFT - 07/16/2017 12:01 PM SALES AND MARKETING ENGINEER FINAL GYNECOLOGICAL CYTOLOGY REPORT Pathology #: [id number] ?Date Obtained: 07/12/2017 ? Date Received: 07/15/2017 INTERPRETATION/RESULTS: Negative for Intraepithelial Lesion or M alignancy. SPECIMEN ADEQUACY: Satisfactory for Evaluation. ??Endocervi guru cells/transformation zone component present. Verified on 07/16/2017 ??by LUCAS PECK(ASCP) (electronic signature) CLINICAL NOTES: ?Abnormal bleeding: No, [...] false-negative report s may occur. Performed at [address] [address] Genesis Hampton MD LAB_1 Performing Organization Address [facility] Phon e Number PN SOFT [address] [place] [address] [phone] Chlamydia and GC STD (07/12/2017 3:17 PM SALES AND MARKETING ENGINEER) [facility] gist Method Time Signature Chlamydia Negative Negative PN SOFT Trachomatis STD Comment: Test Performed by Sander Hand Mediated Amplification CLIA Number [id number] N. gonorrhoeae STD Negative Negative PN SOFT Comment: Test Performed by Sander Hand Mediated Amplification Performed at [facility], [address] ??[address] CLIA Number [id number] Source STD Cervix PN SOFT Comment: CLIA Number [id number] Specimen Anatomical Collection Method Collection Time Receive d Time (Source) Location / / Volume Laterality 07/12/2017 3:17 PM 7 9:09 SALES AND MARKETING ENGINEER PM SALES AND MARKETING ENGINEER Genesis Hampton MD LAB_1 Performing Organization Address [facility] Phon e Number PN SOFT [address] [place] [address] Pap Test Order (07/12/2017 3:17 PM SALES AND MARKETING ENGINEER) Analysis Performed At [facility] logist Time Signature Pap Smear Collected PN SOFT Monolayer tracking test Specimen Anatomical Collection Method Collection Time Receive d Time (Source) Location / / Volume Laterality 07/12/2017 3:17 PM 7 SALES AND MARKETING ENGINEER 10:26 PM SALES AND MARKETING ENGINEER Narrative PN SOFT - 07/12/2017 3:17 PM SALES AND MARKETING ENGINEER Performed at [facility], [address] [place] [address] CLIA number [id number] Genesis Hampton MD LAB_1 Performing Organization Address City/State/ZIP Code Phon e Number PN SOFT [address] [place] [address] documented in this encounter Visit Diagnoses Diagnosis [...] se documented in this encounter Care Teams Ironer Or Presser Relationship Specialty Start Date End Date Genesis Hampton MD PCP - General 05/08/12 [address] [place] [address] documented as of this encounter
--- OUTSIDE RECORDS SUMMARY | 2022-05-19 11:44 | XMS_ITS | Clinical Summary ---
:1995 Author Organization [facility] Address [address] [place] [address] Care Team Providers Name Role Phone Genesis [...] for each transition of care or referral. [employer] Allergies Active Allergy Reactions Severity Noted Date Comments Nitrofurantoin Hives High 2018 Other Hives High 2018 [place]-MCR; pt mo m reported Medications Medication Sig [...] Comments Blood Pressure 115/71 2018 4:11 PM SCRAP CRUSHER Pulse 96 2018 4:11 PM SCRAP CRUSHER Temperature 36.2 ??C (97.2 ??F) 09/21/2010 4:22 PM ORAL C: 3 6.2 C SCRAP CRUSHER Respiratory Rate - - Oxygen Saturation - - Inhaled Oxygen Concentration - - Weight 48.9 kg (107 lb 14.4 2018 4:11 PM oz) SCRAP CRUSHER Height 165.6 cm (5' 5.2) 2018 4:11 PM SCRAP CRUSHER Body Mass Index 17.85 2018 4:11 PM SCRAP CRUSHER Plan of Treatment Health Maintenance Due Date [...] ss Type Group BCBS BCBS OUT OF [id number] 2017-Derick [address] [address] [place] [address] (Home) [place] [address] Renetta White Personal/Family Self [address] (Home) [place] [phone] [place] (Work) [address] Care Teams Medical Laboratory Technologist Relationship Specialty Start Date End Date Genesis Hampton MD PCP - General 05/08/12 [address] [facility] [place] [address]
--- OUTSIDE RECORDS SUMMARY | 2022-05-19 11:44 | XMS_ITS | Encounter Summary ---
:1995 Author Organization [facility] Address [address] [place] [address] Care Team Providers Name Role Phone Dean Lawson MD Primary Care Provider Reason for Visit Reason Comments IMMUNIZATIONS Encounter Details Date Type Department Care Team Description 04/03/2011 [facility] Immun[facility], combined Medicine vaccine (Primary Dx) [address] . [place] [address] Social History Tobacco Use Types Packs/Day Years Used Date Smoking Tobacco: Never Assessed Sex Assigned at Date Recorded Not on file documented as of this encounter Plan of Treatment Not on filedocumented as of this encounter Visit Diagnoses Diagnosis Immunization, combined vaccine - Primary Need for prophylactic vaccination with u nspecified combined vaccine documented in this encounter Care Teams Retail Wireless Sales Representative Relationship Specialty Start Date End Date Dean Lawson MD PCP - General 10/31/10 05/07/12 14[address] [facility] [place] [address] documented as of this encounter
--- OUTSIDE RECORDS SUMMARY | 2022-05-19 11:44 | XMS_ITS | Encounter Summary ---
:1995 Author Organization [facility] Address [address] [place] [address] Care Team Providers Name Role Phone Genesis Hampton MD Primary Care Provider Reason for Visit Reason Comments Annual Exam Encounter Details Date Type Department Care Team Description 12/17/2014 Office Visit [facility] Genesis Hampton, [facility] adult exam (Primary Dx); Medicine MD Screen for STD (sexually transmitted dis ease); [address] Con traception; 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 gonorrhoeae STD Negative Negative HP CONVERSI ON Comment: Test Performed by Cnc Machine Programmer Mediated Amplification Performed at [facility], [address] [place] [address] CLIA Number [id number] Source STD Cervix HP CONVERSION Comment: CLIA Number [id number] Specimen Anatomical Collection Method Collection Time Receive [...] - 12/24/2014 3:25 PM CDT Performed at [facility], [address] [place] [address] FINAL GYNECOLOGICAL CYTOLOGY REPORT Pathology #: [id number] ?Date Obtained: 12/17/2014 ? Date Received: 12/21/2014 [...] Genesis Hampton MD LAB_1 Performing Organization Address City/[facility] Code Phon e Number HP CONVERSION Pap Smear Order (12/17/2014 11:35 AM CDT) [facility] Method Time Signature Pap Smear Collected HP CONVERSION Monolayer tracking test Specimen Anatomical Collection Method Collection Time Receive d Time (Source) Location / / Volume Laterality 12/17/2014 11:35 12/21/2014 4:51 AM CDT AM CDT Narrative HP CONVERSION - 12/24/2014 3:21 PM CDT Performed at [facility], [facility] [place] [address] Genesis Hampton MD LAB_1 Performing Organization Address [...] Need for prophylactic vaccination with c ombined nlzywtezox-cgsyayc-oovbhutze (DTP) vaccine documented in this encounter Care Teams Cryptologic Linguist Relationship Specialty Start Date End Date Genesis Hampton MD PCP - General 05/08/12 [address] [place] [address] documented as of this encounter
--- OUTSIDE RECORDS SUMMARY | 2022-05-19 11:44 | XMS_ITS | Encounter Summary ---
:1995 Author Organization [facility] Address [address] [place] [address] Care Team Providers Name Role Phone Genesis Hampton MD Primary Care Provider Encounter Details Date Type Department Care Team Description 12/17/2014 Lab Visit [facility] Screening cholesterol level [address] [place] [address] Social History Tobacco Use Types [...] Direct LDL(If Needed) (12/17/2014 11:32 AM CDT) [facility] gist Method Time Signature Cholesterol 135 [...] - 12/17/2014 3:32 PM CDT Performed at [facility], [address] [place] [address] Genesis Hampton MD LAB_1 Performing Organization Address [facility] Phon e Number HP CONVERSION Basic [...] - 12/17/2014 3:32 PM CDT Performed at [facility], [address] [place] [address] Genesis Hampton MD LAB_1 Performing Organization Address [facility] Phon e Number HP CONVERSION documented in this encounter Visit Diagnoses Diagnosis Screening cholesterol level Screening for lipoid disorders documented in this encounter Care Teams Statistical Secretary Relationship Specialty Start Date End Date Genesis Hampton MD PCP - General 05/08/12 [address] [place] [address] documented as of this encounter
--- OUTSIDE RECORDS SUMMARY | 2022-05-19 11:44 | XMS_ITS | Encounter Summary ---
:1995 Author Organization [facility] Address [address] [place] [address] Care Team Providers Name Role Phone Genesis Hampton MD Primary Care Provider Reason for Visit Reason Comments Refill Encounter Details Date Type Department Care Team Description 05/08/2012 Refill [facility] Genesis Welch MD Refill [address] [place] [address] [place], [place] [phone] (Wo rk) Social History Tobacco Use Types [...] management documented in this encounter Care Teams Assembler Musical Instruments Relationship Specialty Start Date End Date Genesis Hampton MD PCP - General 05/08/12 [address] [place], [place] [address] documented as of this encounter
--- OUTSIDE RECORDS SUMMARY | 2022-05-19 11:44 | XMS_ITS | Encounter Summary ---
:1995 Author Organization [facility] Address [address] [place] [address] Care Team Providers Name Role Phone Genesis Hampton MD Primary Care Provider Reason for Visit Reason Comments Refill Encounter Details Date Type Department Care Team Description 12/23/2012 Refill [facility] [place] [facility] Genesis Welch MD Refill [address] [place] [address] [place], [place] [address] (Wo rk) Social History Tobacco Use Types [...] on filedocumented in this encounter Care Teams Archeologist Classical Relationship Specialty Start Date End Date Genesis Hampton MD PCP - General 05/08/[address] [place] [address] documented as of this encounter
--- OUTSIDE RECORDS SUMMARY | 2022-05-19 11:44 | XMS_ITS | Encounter Summary ---
:1995 Author Organization [facility] Address [address] [place] [address] Care Team Providers Name Role Phone Dean Lawson MD Primary Care Provider Encounter Details Date Type Department Care Team Description 07/18/2009 [facility] Vy Bermudez PA-C [address] [place] [address] [place], [place] [address] (Wo rk) Social History Tobacco Use Types Packs/Day Years Used Date Smoking Tobacco: Never Assessed Sex Assigned at Date Recorded Not on file documented as of this encounter Last Filed Vital Signs Vital Sign Reading Time Taken Comments Blood Pressure 102/56 07/18/2009 4:23 PM FOUNTAIN DISPENSER Pulse 78 07/18/2009 4:23 PM FOUNTAIN DISPENSER Temperature - - Respiratory Rate - - Oxygen Saturation - - Inhaled Oxygen Concentration - - Weight 45.4 kg (99 lb 15.7 oz) 07/18/2009 4:23 PM FOUNTAIN DISPENSER C : 45.4kg Height - - Body Mass Index - - documented in this encounter Progress Notes Vy Bermudez PA-C - 07/18/2009 12:01 AM CST Progress Notes signed by Vy Bermudez PA-C at 07/18/09 2168 Author: Vy Bermudez PA-C Service: (none) Author Type: Physician Educational Technology Coordinator Filed: 11/18/10 1850 Note Time: 07/18/09 0001 Status: Signed Elocution Teacher: Vy Bermudez PA-C (Resource) SUBJECTIVE: Follow-up of [...] discharged ambulatory and in stable condition. *SH~DNS~SOAP TAIN DISPENSER documented in this encounter Plan of Treatment Not on filedocumented as of this encounter Visit Diagnoses Not on filedocumented in this encounter Care Teams Supervisor Spinning Relationship Specialty Start Date End Date Dean Lawson MD PCP - General 10/31/10 05/07/12 [address] [facility] [place] [address] documented as of this encounter
--- OUTSIDE RECORDS SUMMARY | 2022-05-19 11:44 | XMS_ITS | Encounter Summary ---
:1995 Author Organization [employer] Address [address] [place] [address] Care Team Providers Name Role Phone Dean Lawson MD Primary Care Provider Encounter Details Date Type Department Care Team Description 08/09/2008 Office Visit [facility] Dean Lawson MD [address] [facility] . [address] [facility] [place] [address] [place], [place] [id number] (Wo rk) Social History Tobacco Use Types [...] (97 lb 15.9 oz) 08/09/2008 3:42 PM CANNONEER C : 44.5kg Height - - Body Mass Index - - documented in this encounter Progress Notes Dean Lawson MD - 08/09/2008 12:01 AM CST Progress Notes signed by Dean Lawson MD at 08/09/08 1605 Author: Dean Lawson MD Service: (none) Author Type: Physician Filed: 11/18/10 0955 Note Time: 08/09/08 0001 Status: Signed Office Services Representative: Dean Lawson MD (Physician) Procedure Note: Skin [...] ~Shorthand Note completed on: 08/09/2008 4:05 PM ONEER documented in this encounter Plan of Treatment Not on filedocumented as of this encounter Visit Diagnoses Not on filedocumented in this encounter Care Teams Tanning Consultant Relationship Specialty Start Date End Date Dean Lawson MD PCP - General 10/31/10 05/07/12 14[address] [facility] [place] [address] documented as of this encounter
--- OUTSIDE RECORDS SUMMARY | 2022-05-19 11:44 | XMS_ITS | Encounter Summary ---
:1995 Author Organization [employer] Address [address] [place] [address] Care Team Providers Name Role Phone Genesis Hampton MD Primary Care Provider Encounter Details Date Type Department Care Team Description 01/09/2021 emma Ly [phone] Social History Tobacco Use Types Packs/Day Years [...] Infection Visit Date January 09, 2021 Renetta White Date of : 89 Provider Jordyn Vang, [...] 7 days Note: Refills: None Sent To: [facility]/pharmacy [address] [place] [address] Treatment Plan Self Care Tip Topics Avoid [...] None Current orders cephalexin (cephalexin) Allergies None [employer] Information [email or web address] [employer] We are an online clinic open 18/02. If you have any questions or comments about this visit, please call or email [email or web address] documented in this encounter Plan of Treatment Not on filedocumented as of this encounter Visit Diagnoses Not on filedocumented in this encounter Care Teams Steak Tenderizer Machine Relationship Specialty Start Date End Date Genesis Hampton MD PCP - General 05/08/12 [address] [place] [address] documented as of this encounter
--- OUTSIDE RECORDS SUMMARY | 2022-05-19 11:44 | XMS_ITS | Encounter Summary ---
:1993 Author Organization [facility] Address [address] [place] [address] Care Team Providers Name Role Phone Genesis Hampton MD Primary Care Provider Reason for Visit Reason Comments Annual Exam nonfasting Encounter Details Date Type Department Care Team Description 2018 [facility] Hampton, Carmen al physical exam (Primary Dx); Medicine MD Screening for cervical cancer; [address] Scr eening for STDs (sexually transmitted diseases); [address] Encounter for surveillance of [place] [address] [address] [place] [phone] Social History Tobacco Use Types Packs/Day Years Used Date Smoking Tobacco: Former Smokeless Tobacco: Never Alcohol Use Standard Drinks/Week Comments Yes 1 (1 standard drink = 0.6 oz pure alcoho l) rarely Sex Assigned at Date Recorded Not on file documented as of this encounter Last Filed Vital Signs Vital Sign Reading Time Taken Comments Blood Pressure 115/71 2018 4:11 PM COMMERCIAL FINANCE MANAGER Pulse 96 2018 4:11 PM COMMERCIAL FINANCE MANAGER Temperature - - Respiratory Rate - - Oxygen Saturation - - Inhaled Oxygen Concentration - - Weight 48.9 kg (107 lb 14.4 oz) 2018 4:11 PM COMMERCIAL FINANCE MANAGER Height 165.6 cm (5' 5.2) 2018 4:11 PM COMMERCIAL FINANCE MANAGER Body Mass Index 17.85 2018 4:11 PM COMMERCIAL FINANCE MANAGER documented in this encounter Progress Notes Genesis [...] Asked Social History Narrative dating 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 Nitrofurantoin Hives ??? Other Hives Allen-MCR; pt mom reported History: LMP: Patient's last [...] shot 3. Follow up in one year ERCIAL FINANCE MANAGER Myrna Krishna RN - 2018 4:30 PM [...] cancer screening or your test results, call [phone]. Sincerely, Myrna Krishna RN on behalf of Dr. Dory Edwards, Investigator [facility] Cervical Cancer Screening and Management ERCIAL FINANCE MANAGER documented in this encounter Plan of Treatment Not on filedocumented as of this encounter Procedures Procedure Name Priority Date/Time Associated Diagnosis Comme nts PAP TEST ORDER Routine 2018 4:48 PM Screening for Result s for this COMMERCIAL FINANCE MANAGER cervical cancer procedure ar e in the results section. ANATOMICAL PATH Routine 2018 4:48 PM Result s for this LIQUID BASED COMMERCIAL FINANCE MANAGER procedure are i n the results section. CHLAMYDIA & GC (14 Routine 2018 4:[address] Ds Results for this YEARS AND OLDER) COMMERCIAL FINANCE MANAGER (sexually procedure a re in transmitted the results diseases) section. documented in this encounter Results Pap Smear (2018 4:48 PM COMMERCIAL FINANCE MANAGER) Specimen (Source) Anatomical Collection Method Collection Time Re ceived Time Location / / Volume Laterality 2018 4:48 PM COMMERCIAL FINANCE MANAGER Narrative PN SOFT - 08/30/2018 11:40 AM COMMERCIAL FINANCE MANAGER FINAL GYNECOLOGICAL CYTOLOGY REPORT Pathology #: [id number] ?Date Obtained: 2018 ? Date Received: 08/29/2018 [...] false-negative report s may occur. Performed at [facility], [address] [place] [address] Genesis Hampton MD LAB_1 Performing Organization Address City/State/ZIP Code Phon e Number PN SOFT [address] [place] [address] [phone] Chlamydia and GC STD (2018 4:48 PM COMMERCIAL FINANCE MANAGER) [facility] Method Time Signature Chlamydia Negative Negative PN SOFT Trachomatis STD Comment: Test Performed by [employer] CLIA Number [id number] N. gonorrhoeae STD Negative Negative PN SOFT Comment: Test Performed by [employer] Performed at [facility], [address] [place] [address] ??[address] CLIA Number [id number] Source STD Cervix PN SOFT Comment: CLIA Number [id number] Specimen Anatomical Collection Method Collection Time Receive d Time (Source) Location / / Volume Laterality 2018 4:48 PM 9 9:10 COMMERCIAL FINANCE MANAGER PM COMMERCIAL FINANCE MANAGER Genesis Hampton MD LAB_1 Performing Organization Address City/[facility]/ZIP Code Phon e Number PN SOFT [address] [place] [address] [phone] Pap Test Order (2018 4:48 PM COMMERCIAL FINANCE MANAGER) Analysis Performed At [facility] Time Signature Pap Smear Collected PN SOFT Monolayer tracking test Specimen Anatomical Collection Method Collection Time Receive d Time (Source) Location / / Volume Laterality 2018 4:48 PM 9 3:18 COMMERCIAL FINANCE MANAGER AM COMMERCIAL FINANCE MANAGER Narrative PN SOFT - 2018 4:49 PM COMMERCIAL FINANCE MANAGER Performed at [address] [address] CLIA number [id number] Genesis Hampton MD LAB_1 Performing Organization Address City/[facility] Phon e Number PN SOFT [address] [place] [address] [phone] documented in this encounter Visit Diagnoses Diagnosis [...] pill documented in this encounter Care Teams Director Of Manufacturing Relationship Specialty Start Date End Date Genesis Hampton MD PCP - General 05/08/12 [address] [place] [address] documented as of this encounter
--- OUTSIDE RECORDS SUMMARY | 2022-05-19 11:44 | XMS_ITS | Encounter Summary ---
:1995 Author Organization [employer] Address [address] [place] [address] Care Team Providers Name Role Phone Dean Shine MD Primary Care Provider Encounter Details Date Type Department Care Team Description 07/12/2008 Office Visit [facility] Dean Shine MD [address] [facility] . [address] [place] [address] [place], [place] [address] (Wo rk) Social History Tobacco Use Types [...] (99 lb 15.7 oz) 07/12/2008 3:26 PM RUBBER COMPOUNDER MIXER C : 45.4kg Height - - Body Mass Index - - documented in this encounter Progress Notes Dean Shine MD - 07/12/2008 12:01 AM CST Progress Notes signed by Dean Shine MD at 07/26/08 7159 Author: Dean Shine MD Service: (none) Author Type: Physician Filed: 11/18/10 0918 Note Time: 07/12/08 0001 Status: Signed Building Illuminating Engineer: Dean Shine MD (Physician) NAME: BROOK WHITE MR#: [id number] ACCT: [id number] VISIT: [id number] DICTATING CLINICIAN: DEAN SHINE MD CONFIRM #: [id number] LOC: 1202 CLINIC PROGRESS NOTE DATE OF [...] 3 weeks if lesion persists, otherwise p.r.n. [facility]:[id number] C: 07/13/08 08:47 CONFIRM #: [id number] ER COMPOUNDER MIXER documented in this encounter Plan of Treatment Not on filedocumented as of this encounter Visit Diagnoses Not on filedocumented in this encounter Care Teams Research Assoc Relationship Specialty Start Date End Date Dean Shine MD PCP - General 10/31/10 05/07/12 1415 [facility] [place] [address] documented as of this encounter
--- OUTSIDE RECORDS SUMMARY | 2022-05-19 11:44 | XMS_ITS | Encounter Summary ---
:1995 Author Organization [employer] Address [address] [place] [address] Care Team Providers Name Role Phone Dean Lawson MD Primary Care Provider Reason for Visit Reason Comments Annual Exam Encounter Details Date Type Department Care Team Description 11/26/2011 Office Visit [facility] Genesis Hampton, Cont raception (Primary Medicine MD Dx) [address] [place] [address] [place], [place] [phone] Social History Tobacco Use Types Packs/Day [...] PM CDT Thank you for enrolling in [employer]. Please follow the instructions below to securely access your online medical record. [employer] allows you to send messages to your doctor, view your test results, renewyour prescriptions, schedule appointments, and more. How Do I Sign Up? 1. In your Internet browser, go to: [email or web address] 2. Click on the Sign Up Now link in the Sign In box. You will see the New Member Sign Up page. 3. Enter your [employer] Access Code exactly as it appears below. You will not need to use this code after you???ve completed the sign-up process. If you do not sign up before the expiration date, you must request a new code. [employer] Access Code: [email or web address] Expires: 12/26/11 03:29 PM 4. Enter your Social Security Number ([id number]) and Date of (mm/dd/yyyy) as indicated and click Submit. You will be taken to the next sign- up page. 5. Create a [employer] ID. This will be your [employer] login ID and cannot be changed, so think of one that is secure and easy to remember. 6. Create a [employer] password. You can change your password at any time. 7. Enter your Password Reset Question and Answer. This can be used at a later time if you forget your password. 8. Enter your e-mail address. You will receive e-mail notification when new information is availablein [employer]. 9. Click Sign Up. You can now view your medical record. Additional Information If you have questions, you can call [phone] to talk to our [employer] staff. Remember, [employer] is NOT to be used for urgent [...] ??? Not on file Social History Narrative [facility], next yeardating same man for 10 months [...] management documented in this encounter Care Teams Biophysics Scientist Relationship Specialty Start Date End Date Dean Lawson MD PCP - General 10/31/10 05/07/12 [address] [place] [address] documented as of this encounter
--- OUTSIDE RECORDS SUMMARY | 2022-05-19 11:44 | XMS_ITS | Encounter Summary ---
:1995 Author Organization [email or web address] [employer] Address [address] [place] [address] Care Team Providers Name Role Phone Alfredo Hampton MD Primary Care Provider Reason for Visit Reason Comments Refill APRI 0.15-30 MG-MCG tablet [ Pharmacy Med Name: APRI 28 DAY TABLET] Encounter Details Date Type Department Care Team Description 04/18/2017 [facility] MD Refill (APRI 0.15-30 Medicine [address] MG-MCG tablet [Pharmacy [address] Med Name: APRI [address] [place] [address] TABLET]) [place] [address] [phone] Social History Tobacco Use Types Packs/Day Years Used Date Smoking Tobacco: Former Alcohol Use Standard Drinks/Week Comments Yes 0 (1 standard drink = 0.6 oz pure alcoho l) rarely Sex Assigned at Date Recorded Not on file documented as of this encounter Nursing Notes María Hayward - 04/22/2017 4:29 PM CDT PRINTED letter and sent Chapis Johnson, RN - 04/20/2017 8:10 PM CDT OFFICE [...] Medication started: 11/03/2011 Last ordered by ALFREDO HAMPTON M: 03/30/2016 (384 days ago) QTY: 84, Refills: [...] 68 mm Hg on 03/30/2016 Powered by [employer], Reference: [id number], 04/18/2017 1:01:24 AM CDT, Pool: EDENK REFILL ([id number]) documented in this encounter Plan of Treatment Not on filedocumented as of this encounter Visit Diagnoses Diagnosis Encounter for surveillance of contracept ba pills Surveillance of previously prescribed co ntraceptive pill documented in this encounter Care Teams Rn Cardiac Relationship Specialty Start Date End Date Alfredo Hampton MD PCP - General 05/08/12 [address] [place] [address] documented as of this encounter
--- OUTSIDE RECORDS SUMMARY | 2022-05-19 11:44 | XMS_ITS | Encounter Summary ---
:1995 Author Organization [facility] Address [address] [place] [address] Care Team Providers Name Role Phone Alfredo Hampton MD Primary Care Provider Reason for Visit Reason Comments Refill Encounter Details Date Type Department Care Team Description 10/07/2012 Refill [facility] Alfredo Welch MD Refill [address] [place] [address] [place], [place] [address] (Wo rk) Social History Tobacco Use Types [...] on filedocumented in this encounter Care Teams Operation Research Analyst Relationship Specialty Start Date End Date Alfredo Hampton MD PCP - General 05/08/12 [address] [place] [address] documented as of this encounter
--- OUTSIDE RECORDS SUMMARY | 2022-05-19 11:44 | XMS_ITS | Encounter Summary ---
:1993 Author Organization [facility] Address [address] [place] [address] Care Team Providers Name Role Phone Dean Lawson MD Primary Care Provider Encounter Details Date Type Department Care Team Description 11/22/2010 Nursing Visit [place] [facility] Allison Hernandez, PA-C [address] [facility] . [address] [place] [address] [address] [phone] [place], [place] [address] (Wo rk) Social History Tobacco Use Types Packs/Day Years Used Date Smoking Tobacco: Never Assessed Sex Assigned at Date Recorded Not on file documented as of this encounter Plan of Treatment Not on filedocumented as of this encounter Visit Diagnoses Not on filedocumented in this encounter Care Teams Show Host Relationship Specialty Start Date End Date Dean Lawson MD PCP - General 10/31/10 05/07/12 [address] [facility] [place] [address] documented as of this encounter
--- OUTSIDE RECORDS SUMMARY | 2022-05-19 11:44 | XMS_ITS | Encounter Summary ---
:1995 Author Organization [facility] Address [address] [place] [address] Care Team Providers Name Role Phone Dean Lawson MD Primary Care Provider Reason for Visit Reason Comments Other Encounter Details Date Type Department Care Team Description 09/08/2010 [facility] Message Other [address] [place] [address] Social History Tobacco Use Types Packs/Day Years Used Date Smoking Tobacco: Never Assessed Sex Assigned at Date Recorded Not on file documented as of this encounter Progress Notes Rose Marie Cruz - 09/08/2010 3:22 PM CST PRESCRIPTION REFILL Please provide enough refills to last until patient's next visit. Comment:- Pharmacy Seq #:-[phone] Pharmacy Name-Phone/Fax:-[facility] Pharmacy Street or City:-[place] Clinician Name:-Vy Bermudez Drug Name/Strength:-Apri 28 day [...] mother to make an appt. She agreed. MACY CARE COORDINATOR documented in this encounter Plan of Treatment Not on filedocumented as of this encounter Visit Diagnoses Not on filedocumented in this encounter Care Teams Solar Power Installer Relationship Specialty Start Date End Date Dean Lawson MD PCP - General 10/31/10 05/07/12 [facility]5 [place] [address] documented as of this encounter
--- OUTSIDE RECORDS SUMMARY | 2022-05-19 11:44 | XMS_ITS | Encounter Summary ---
:1995 Author Organization [facility] Address [address] [place] [address] Care Team Providers Name Role Phone Alfredo Hampton MD Primary Care Provider Reason for Visit Reason Comments Refill APRI 0.15-30 MG-MCG tablet [ Pharmacy Med Name: APRI 28 DAY TABLET] Encounter Details Date Type Department Care Team Description 10/08/2019 [facility] Hampton MD Refill (APRI 0.15-30 Medicine [address] MG-MCG tablet [Pharmacy [address] Med Name: APRI [address] [place] [address] TABLET]) [place] [address] [phone] Social History Tobacco Use Types Packs/Day Years [...] TABLET BY MOUTH EVERY DAY Interface, Out [employer] Prov Query - 10/08/2019 4:38 AM CDT [...] 71 mm Hg on 2018 Powered by [employer], Reference: [id number], 10/08/2019 4:38:47 AM CDT, Pool: PRLK REFILL ([id number]) documented in this encounter Plan of Treatment Not on filedocumented as of this encounter Visit Diagnoses Diagnosis Encounter for surveillance of contracept ba pills Surveillance of previously prescribed co ntraceptive pill documented in this encounter Care Teams Channel Rougher Relationship Specialty Start Date End Date Alfredo Hampton MD PCP - General 05/08/12 [address] [place], [place] [address] documented as of this encounter
--- OUTSIDE RECORDS SUMMARY | 2022-05-19 11:44 | XMS_ITS | Encounter Summary ---
:1995 Author Organization [facility] Address [address] [place] [address] Care Team Providers Name Role Phone Dean Lawson MD Primary Care Provider Encounter Details Date Type Department Care Team Description 04/27/2008 PN Conversion Only [place] CONVERSION [address] [place] [address] Social History Tobacco Use Types Packs/Day Years Used Date Smoking Tobacco: Never Assessed Sex Assigned at Date Recorded Not on file documented as of this encounter Plan of Treatment Not on filedocumented as of this encounter Visit Diagnoses Not on filedocumented in this encounter Care Teams Student Support Counselor Relationship Specialty Start Date End Date Dean Lawson MD PCP - General 10/31/10 05/07/12 [facility] [facility] [place] [place] [address] documented as of this encounter
--- OUTSIDE RECORDS SUMMARY | 2022-05-19 11:44 | XMS_ITS | Encounter Summary ---
:1993 Author Organization [employer] Address [address] [place] [address] Care Team Providers Name Role Phone Alfredo Hampton MD Primary Care Provider Reason for Visit Reason Comments Refill Encounter Details Date Type Department Care Team Description 02/06/2016 Refill [facility] [facility] Alfredo Welch MD Refill [address] [place] [address] [place], [place] [address] (Wo rk) Social History Tobacco Use Types [...] DBP: 78.0mm Hg on 12/17/2014 Powered by [employer], Reference: [id number], 02/06/2016 1:07:13 AM CDT, Pool: EDENK REFILL ([id number]) María Layne - 02/06/2016 3:18 PM CDT Appointment Letter Sent TAL COMMUNICATIONS MANAGER Aminata Fitzgerald RN - 02/06/2016 11:36 AM [...] from the original note were not included. [facility] Renetta White [address] [facility] [address] February 06, 2016 Dear Renetta L Christopher, We recently received a renewal request for your prescription(s). While reviewing your chart, we noticed that you are due for a visit with your doctor. To receive future refills, please schedule an office visit within the next month. At [facility], your health care is important to us. Please call [phone] to schedule an appointment. Thank you for choosing [facility] for your health care needs. Your [facility] Primary Care Team TAL COMMUNICATIONS MANAGER documented in this encounter Plan of Treatment Not on filedocumented as of this encounter Visit Diagnoses Not on filedocumented in this encounter Care Teams Nurse Practitioner Adult Relationship Specialty Start Date End Date Alfredo Hampton MD PCP - General 05/08/12 [address] [place] [address] documented as of this encounter
--- OUTSIDE RECORDS SUMMARY | 2022-05-19 11:44 | XMS_ITS | Encounter Summary ---
:1993 Author Organization [facility] Address [address] [place] [address] Care Team Providers Name Role Phone Alfredo Hampton MD Primary Care Provider Reason for Visit Reason Comments Refill APRI 0.15-30 MG-MCG tablet [ Pharmacy Med Name: APRI 28 DAY TABLET] Encounter Details Date Type Department Care Team Description 08/17/2018 [facility] MD Refill (APRI 0.15-30 Medicine [address] MG-MCG tablet [Pharmacy [address] Med Name: APRI [address] [place] [address] TABLET]) [place] [address] [phone] Social History Tobacco Use Types Packs/Day Years Used Date Smoking Tobacco: Former Smokeless Tobacco: Never Alcohol Use Standard Drinks/Week Comments Yes 1 (1 standard drink = 0.6 oz pure alcoho l) rarely Sex Assigned at Date Recorded Not on file documented as of this encounter Nursing Notes Nereyda Willis - 08/22/2018 12:07 PM CST Patient has appointment on 2018. Closing encounter. CLE SALES PROFESSIONAL Candi Mcknight, RN - 08/17/2018 6:04 PM CST OFFICE APPOINTMENT NEEDED Please notify patient to schedule an appointment within 30 days. Requested Prescriptions Pending Prescriptions Disp Refills ??? APRI 0.15-30 MG-MCG tablet [Pharmacy Med Name: APRI 28 DAY TABLET] 84 Tablet Sig: TAKE 1 TAB BY MOUTH DAILY. CLE SALES PROFESSIONAL Interface, Out [employer] Prov Query - 08/17/2018 10:33 AM CST [...] 56 mm Hg on 07/12/2017 Powered by [employer], Reference: [id number], 08/17/2018 10:33:36 AM VEHICLE SALES PROFESSIONAL, Pool: JEFE REFILL ([id number]) CLE SALES PROFESSIONAL documented in this encounter Plan of Treatment Not on filedocumented as of this encounter Visit Diagnoses Diagnosis Encounter for surveillance of contracept ba pills Surveillance of previously prescribed co ntraceptive pill documented in this encounter Care Teams Photoengraving Helper Relationship Specialty Start Date End Date Alfredo Hampton MD PCP - General 05/08/12 [address] [place] [address] documented as of this encounter
--- OUTSIDE RECORDS SUMMARY | 2022-05-19 11:44 | XMS_ITS | Encounter Summary ---
:1995 Author Organization [facility] Address [address] [place] [address] Care Team Providers Name Role Phone Genesis Hampton MD Primary Care Provider Reason for Visit Reason Comments Annual Exam MOLE Encounter Details Date Type Department Care Team Description 03/30/2016 Office Visit [place] [facility] Genesis Hampton, [facility] adult exam (Primary Dx); Medicine MD Encounter for surveillance of contracept ba pills; [address] [facility] Pap smear for cervical cancer screening; [address] Screen for STD (sexually transmitted dis ease) [place] [address] [place], [place] [phone] Social History Tobacco Use Types Packs/Day Years [...] or bloody stools. No urinary tract symptoms. CIGARETTE MAKING MACHINE HOPPER FEEDER ROS: normal menses, no abnormal bleeding, pelvic [...] escutcheon. Vulva and vagina well estrogenized. Bartholyn's, Gardi's and urethral conduits without lesion or exudation. [...] CDT FINAL GYNECOLOGICAL CYTOLOGY REPORT Pathology #: [id number] ?Date Obtained: 03/30/2016 ? Date Received: 04/03/2016 [...] false-negative report s may occur. Performed at [facility], [address] [place] [address] Genesis Hampton MD LAB_1 Performing Organization Address City/State/ZIP Code Phon e Number PN SOFT [address] [place] [address] Chlamydia and GC STD (03/30/2016 11:35 AM CDT) [facility] Method Time Signature Chlamydia Negative Negative PN SOFT Trachomatis STD Comment: Test Performed by Lens Blank Gauger Mediated Amplification CLIA Number [id number] N. gonorrhoeae STD Negative Negative PN SOFT Comment: Test Performed by Lens Blank Gauger Mediated Amplification Performed at [facility], [address] [place] [address] ??[address] CLIA Number [id number] Source STD Cervix PN SOFT Comment: CLIA Number [id number] Specimen Anatomical Collection Method Collection Time Receive d Time (Source) Location / / Volume Laterality 03/30/2016 11:35 03/30/2016 3:38 AM CDT PM CDT Genesis Hampton MD LAB_1 Performing Organization Address [facility] Phon e Number PN SOFT [address] [place] [address] Pap Test Order (03/30/2016 11:35 AM CDT) Analysis [facility] Time Signature Pap Smear Collected PN SOFT Monolayer tracking test Specimen Anatomical Collection Method Collection Time Receive d Time (Source) Location / / Volume Laterality 03/30/2016 11:35 04/03/2016 6:00 AM CDT AM CDT Genesis [place] MD LAB_1 Performing Organization Address [facility] Phon e Number PN SOFT [address] [place] [address] documented in this encounter Visit Diagnoses Diagnosis [...] se documented in this encounter Care Teams Diesel Mechanic Farm Relationship Specialty Start Date End Date Genesis [place] MD PCP - General 05/08/12 [address] [place] [address] documented as of this encounter
--- OUTSIDE RECORDS SUMMARY | 2022-05-19 11:44 | XMS_ITS | Encounter Summary ---
:1995 Author Organization [facility] Address [address] [place] [address] Care Team Providers Name Role Phone Dean Lawson MD Primary Care Provider Reason for Visit Reason Comments Refill Encounter Details Date Type Department Care Team Description 11/03/2011 Refill [place] [facility] Genesis Welch MD Refill [address] [place] [address] [place] [address] [phone] (Wo rk) Social History Tobacco Use Types [...] on filedocumented in this encounter Care Teams Scouring Pads Supervisor Relationship Specialty Start Date End Date Dean Lawson MD PCP - General 10/31/10 05/07/12 [address] [place] [address] documented as of this encounter
--- OUTSIDE RECORDS SUMMARY | 2022-05-19 11:44 | XMS_ITS | Encounter Summary ---
:1995 Author Organization [facility] [employer] Address [address] [place] [address] Care Team Providers Name Role Phone Alfredo [place] MD Primary Care Provider Reason for Visit Reason Comments Refill Encounter Details Date Type Department Care Team Description 08/09/2014 Refill [facility] Alfredo Welch MD Refill [address] [place] [address] [place], [place] [phone] (Wo rk) Social History Tobacco Use Types [...] Sig: follow package instructions (changed) Powered by [email or web address], Reference: [id number], 08/09/2014 12:26:13 AM PROJECT BUYER, Pool: PRLK REFILL ([id number]) Yudtih Masters - 08/17/2014 3:48 PM CST Appointment [...] Provider: ALFREDO HAMPTON Ordering User: DEB BRIZUELA ECT BUYER documented in this encounter Miscellaneous Notes Letter - Alfredo [place] MD - 08/09/2014 12:00 AM CST Images from the original note were not included. [facility] [address] [facility] [address] Renetta White [address] [place] [address] [place] [address] August 17, 2014 Dear Renetta White, We received your request for the following prescription(s): Orders Placed This Encounter Medications ??? desogestrel-ethinyl estradiol (APRI) 0.15-30 mg-mcg per tablet Sig: Take 1 tablet by mouth daily (every 24 hours). Follow package directions. Dispense: 84 tablet Refill: 0 Your request was approved. You will need an appointment with your provider before your next refill. Please call [facility] at [phone] to schedule an appointment within 30 days. Thank you for choosing [facility] for your health care needs. [facility] Primary Care Team ECT BUYER documented in this encounter Plan of Treatment Not on filedocumented as of this encounter Visit Diagnoses Not on filedocumented in this encounter Care Teams Sole Inker Relationship Specialty Start Date End Date Alfredo [place] MD PCP - General 05/08/12 [address] [place] [address] documented as of this encounter
--- OUTSIDE RECORDS SUMMARY | 2022-05-19 11:44 | XMS_ITS | Encounter Summary ---
:1995 Author [facility] Address [address] [place] [address] Care Team Providers Name Role Phone Dean Shine MD Primary Care Provider Encounter Details Date Type Department Care Team Description 04/27/2008 Office Visit [facility] Dean Shine MD [address] [facility] . [address] [place] [address] [place], [place] [address] (Wo rk) Social History Tobacco Use Types [...] 0725 Note Time: 04/27/08 0001 Status: Signed Monitoring Analyst: Dean Shine MD (Physician) NAME: BROOK WHITE MR#: [id number] ACCT: [id number] VISIT: [id number] DICTATING CLINICIAN: DEAN SHINE MD CONFIRM #: [id number] LOC: 1202 CLINIC PROGRESS NOTE DATE OF [...] if lesion persists, otherwise p.r.n. ASSESSMENT: PLAN: [facility]:[id number] C: 04/28/08 12:47 CONFIRM #: [id number] documented in this encounter Plan of Treatment Not on filedocumented as of this encounter Visit Diagnoses Not on filedocumented in this encounter Care Teams Small Products Ii Assembler Relationship Specialty Start Date End Date Dean Shine MD PCP - General 10/31/10 05/07/12 [address] [place] [id number] documented as of this encounter
--- OUTSIDE RECORDS SUMMARY | 2022-05-19 11:44 | XMS_ITS | Encounter Summary ---
:1995 Author Organization [facility] Address [address] [place] [address] Care Team Providers Name Role Phone Genesis [place] MD Primary Care Provider Reason for Visit Reason Comments Annual Exam Encounter Details Date Type Department Care Team Description 06/23/2013 [facility] Genesis [place], [facility] adult exam (Primary Dx); Medicine Contraception [address] [facility] [place] [address] [place], [place] [phone] Social History Tobacco Use Types Packs/Day Years Used Date Smoking Tobacco: Never Assessed Sex Assigned at Date Recorded Not on file documented as of this encounter Last Filed Vital Signs Vital Sign Reading Time Taken Comments Blood Pressure 110/70 06/23/2013 3:48 PM CAR BODY INSPECTOR Pulse 84 06/23/2013 3:48 PM CAR BODY INSPECTOR Temperature - - Respiratory Rate - - Oxygen Saturation - - Inhaled Oxygen Concentration - - Weight 53.8 kg (118 lb 11.2 oz) 06/23/2013 3:48 PM CAR BODY INSPECTOR Height 166.4 cm (5' 5.5) 06/23/2013 3:48 PM CAR BODY INSPECTOR Body Mass Index 19.45 06/23/2013 3:48 PM CAR BODY INSPECTOR documented in this encounter Patient Instructions Patient InstructionsGenesis [place] MD - 06/23/2013 4:03 PM CST 1. please have mom fax vaccine records to us BODY INSPECTOR documented in this encounter Progress Notes Genesis [...] Topics Concern ??? None Social History Narrative mcgrath [facility], next year dating same man since 2010 [...] reviewed. 3. Follow up in one year BODY INSPECTOR documented in this encounter Plan of Treatment Not on filedocumented as of this encounter Visit Diagnoses Diagnosis Well adult exam - Primary Routine general medical examination at a health care facility Contraception Unspecified contraceptive management documented in this encounter Care Teams Health Careers Instructor Relationship Specialty Start Date End Date Genesis [place] MD PCP - General 05/08/12 [address] [place] [address] documented as of this encounter
[2022-05-19 15:16] LABS: SARS PCR* Negative SARS-CoV-2 (Negative)
--- NOTE | 2022-05-19 17:33 | W.PM.LDBA ---
Subjective History of Present Illness Date Seen: 05/19/22 Narrative: Patient is being admitted to Labor and Delivery for spontaneous onset of labor She is a 26 year old at 39 6/7 weeks gestation. She reports labor started about 4 am when she was awoken with intense back pain. She presented to the Center in early labor at 1145 am, initially /-2. She was working hard and breathing through contractions. She had made some change on recheck and was not coping well. She was admitted and labored in the tub. She reports the pain was much better while in the tub. Her full history and physical was dictated by Zachary Dee CNM on 04/30/2022. Please see this for details. 1. Rh-negative status RhoGAM: 09/21/21 for bleeding in early NEEDS RhoGAM at 28 weeks NEEDS RhoGAM pp 2. Restless leg syndrome: --12/29/2021: Start daily iron and magnesium supplements. 3. History of Toxic megacolon: Manages chronic constipation with diet. Magnesium has been helping. Flu: declines OB - H&P: Exam Physical Exam: Vital signs: Temp Pulse Resp BP Pulse Ox 98.2 F 80 16 121/77 98 05/19/22 14:10 05/19/22 14:10 05/19/22 14:10 05/19/22 14:10 05/19/22 12:04 Constitutional: Constitutional: moderate distress Routine HEENT Exam: Head: Present atraumatic Routine Neck Exam: Neck: Present full ROM and normal inspection Detailed Neck Exam: Thyroids: Comments: Supple Routine Respiratory Exam: Respiratory: Present CTA bilaterally Routine Cardiovascular Exam: Cardiovascular: RRR Detailed Abdominal Exam: Bowel sounds: hypoactive Detailed Labor and Delivery Exam: Patient Gravid: yes Effacement (%): 70 Cervix position: anterior Consistency: medium Tachysystole: No Contraction intensity: Moderate Fetus (Single): Station: -2 Heart Rate Baseline: 145 (Reassuring via intermittent auscultation) Routine Skin Exam: Present intact Routine Neurological Exam: Present alert, oriented X3 and normal speech Routine Psychiatric Exam: Present normal affect OB - Problem Based A/P Additional Plan (1) Spontaneous onset of labor: Status: Acute (2) Pain during labor: Status: Acute Plan ASSESSMENT:? 28 at 39 6/7 weeks gestation? complicated by:?Rh negative status Labor type: Spontaneous, Early labor? Intermittent Auscultation Reassuring Initial NST reactive? Labor complicated by: none? GBS negative? ? PLAN:? 1. Routine intrapartum cares as ordered. Continue with expectant management? 2. Monitoring per policy, intermittent? 3. Planning unmedicated . Desires water . Consent signed. Hep C negative. Candidate for analgesia of choice if desires. Does not want to use unless absolutely necessary due to colon issues.?? 4. Patient encouraged to reposition and ambulate to promote physiologic labor and .? 5. Anticipate ? Delivery/Labor/Induction Plan Plan: expectant management
[2022-05-19] MEDS: CALCIUM CARBONATE 500 MG CHEW PO (21:46)
--- NOTE | 2022-05-19 22:00 | P.OBPN_ITS ---
Subjective Date Seen: 05/19/22 Narrative: Renetta is coping well with labor pain/contractions. She is currently being supported by partner. After last cervical exam, she did a labor circuit with position changes. She felt a significant change in her back pain and more lower pressure with contractions. After she finished, it seemed as if contractions had slowed down. We briefly discussed going home if the contractions continued to space out. She was very nervous about this option. Encouraged a long walk in the [place], her and her partner made laps around the unit and contractions began to intensify and become more regular. She is more noticeably uncomfortable and breathing well through contractions. Objective Exam: Constitutional: Alert and oriented x3, moderate distress, coping well? Vital signs stable, see nurse documentation?? Abdomen: gravid, contractions palpate moderate with contractions and soft between? Vital Signs: Last Vital Signs Temp 98.3 F 05/19/22 20:08 Pulse 91 05/19/22 21:59 Resp 16 05/19/22 18:24 BP 132/82 05/19/22 21:59 Pulse Ox 98 05/19/22 12:04 Pelvic Exam Dilation (cm): 4 Effacement (%): 80 Station: -2 Comments: Bulging bag noted. head more applied to cervix, and feels more engaged in pelvis. Contractions Monitor mode: External Contraction Frequency: 2-3 Contraction pattern: Regular Contraction intensity: Moderate Assessment Assessment: early labor Station: -2 Heart Rate Baseline: 155 (Reassuring via intermittent auscultation) Nursing Home Variability: Moderate (6-25) Monitor Accelerations: Present Monitor Decelerations: None Tracing Comments: Intermittent auscultation elevated to 170's. Placed on monitor for further assessment. Reactive. Maternal Status: Breathing well through contractions, able to relax between. Plan Plan: ASSESSMENT:? 28 at 39 6/7 weeks gestation? complicated by:?Rh negative status Labor type: Spontaneous, Early labor? Category I tracing? Labor complicated by: none? GBS negative? ? PLAN:? 1. Routine intrapartum cares as ordered. Continue with expectant management? 2. Monitoring per policy, intermittent? 3. Planning unmedicated . Desires water . Consent signed. Hep C negative. Candidate for analgesia of choice if desires. Does not want to use unless absolutely necessary due to hx of colon issues.?? 4. Patient encouraged to reposition and ambulate to promote physiologic labor and .? 5. Anticipate , collect cord blood at delivery.
[2022-05-20] VITALS (62 sets, daily range): BP systolic 89–167; BP diastolic 45–129; PULSE 56–181; RESP 16–18; TEMP 36.5–37.7; O2SAT 89–100
--- NOTE | 2022-05-20 01:24 | P.OBPN_ITS ---
Subjective Date Seen: 05/20/22 Narrative: Martina is coping well with labor pain/contractions, breathing through cont ractions. She is currently being supported by her partner. RN has been continuously at bedside providing labor support. She is using nitrous oxide for pain management. She would like to continue with nitrous oxide and position changes for comfort and pain management. She has started to feel some rectal pressure and urge to have a bowel movement.?? Objective Exam: Constitutional: Alert and oriented x3, moderate distress, coping well? Vital signs stable, see nurse documentation?? Abdomen: gravid, contractions palpate moderate with contractions and soft between? Vital Signs: Last Vital Signs Temp 98.3 F 05/19/22 20:08 Pulse 96 05/20/22 00:05 Resp 16 05/19/22 18:24 BP 128/84 05/20/22 00:05 Pulse Ox 98 05/19/22 12:04 Pelvic Exam Dilation (cm): 4 Effacement (%): 80 Station: -1 Contractions Monitor mode: External Contraction Frequency: 2-3 mins Contraction pattern: Regular Contraction intensity: Moderate Assessment Assessment: early labor Station: -1 Amniotic Membrane Status: AROM Status: Category l Tracing Comments: Intermittent monitoring by RN. Reassuring. Placed on external monitors following AROM. Labor Progress: Unchanged cervical dilation. Cervix is more stretchy with bulging BOW. Plan Plan: ASSESSMENT:? 28 at 39 6/7 weeks gestation? complicated by:?Rh negative status Labor type: Spontaneous, Early labor? Category I tracing? Labor complicated by: Prolonged latent labor GBS negative AROM, clear fluid ? PLAN:? 1. Routine intrapartum cares as ordered. Discussed options for management including continued expectant management or AROM. Reviewed risk/benefit. AROM of clear fluid. 2. Monitoring per policy, intermittent. Will monitor by external FHR monitors following AROM and return to intermittent auscultation with reassuring tracing. 3. Planning unmedicated . Desires water . Consent signed. Hep C negative. Candidate for analgesia of choice if desires. Does not want to use unless absolutely necessary due to hx of colon issues. 4. Patient encouraged to reposition and ambulate to promote physiologic labor and .? 5. Anticipate , collect cord blood at delivery.
[2022-05-20] MEDS: CALCIUM CARBONATE 500 MG CHEW PO ×2 (02:44→12:26)
--- NOTE | 2022-05-20 04:59 | PM.OBPNL ---
Subjective Date Seen: 05/20/22 Narrative: Renetta is coping moderately well with labor pain/contractions. She is currently being supported by partner, Yvan. She continues to work hard, breathing through contractions. Most recently, she has been tearful and feels like she doesn't know how much longer she can do. She has been laboring with nitrous and in the standard tub. In the last hour, she reports significantly more hip pain. Objective Exam: Constitutional: Alert and oriented x3, moderate to severe distress, coping well? Vital signs stable, see nurse documentation?? Abdomen: gravid, contractions palpate moderate/strong with contractions and soft between? Vital Signs: Last Vital Signs Temp 97.9 F 05/20/22 00:05 Pulse 66 05/20/22 03:06 Resp 16 05/19/22 18:24 BP 112/61 05/20/22 03:06 Pulse Ox 98 05/19/22 12:04 Pelvic Exam Dilation (cm): 5 Effacement (%): 90 Station: -1 Contractions Monitor mode: External Contraction Frequency: 2-3 Contraction pattern: Regular Contraction intensity: Moderate Assessment Assessment: early labor Station: -1 Amniotic Membrane Status: AROM (Clear fluid continued) Status: Category l Heart Rate Baseline: 125 (Reassuring via intermittent auscultation) Tracing Comments: Intermittent monitoring, reassuring per RN. Doppler Labor Progress: scalp molding with some caput noted with cervical exam. Bedside US to help identify position, Right Occiput Transverse Plan Plan: ASSESSMENT:? 28 at 39 6/7 weeks gestation? complicated by:?Rh negative status Labor type: Spontaneous, Early labor? Intermittent Monitoring, Reassuring Labor complicated by: Prolonged latent labor GBS negative AROM, clear fluid ? PLAN:? 1. Routine intrapartum cares as ordered. Continue with expectant management. 2. Monitoring per policy, intermittent. 3. Planning unmedicated . Desires water . Consent signed. Hep C negative. Candidate for analgesia of choice if desires. Does not want to use unless absolutely necessary due to hx of colon issues. Using nitrous for pain management at this time, wishes to continue. 4. Patient encouraged to reposition and ambulate to promote physiologic labor and .?Encouraged her to try side-lying release to assist in position and cervical dilation. 5. Anticipate , collect cord blood at delivery.
[2022-05-20] MEDS: LACTATED RINGERS 1000 ML 1,000 ML 1200 ML IV ×3 (07:52→11:09)
[2022-05-20] MEDS: ROPIVACAINE 0.2 % PF 10 ML INJ 20 MG EPIDURAL (08:21)
[2022-05-20] MEDS: ROPIVACAINE 0.2% 100 ml 100 ML 12 MG EPIDURAL (08:21)
[2022-05-20] MEDS: LIDOCAINE 2% (PF) 5 ML VIAL EPIDURAL (08:21)
--- NOTE | 2022-05-20 08:23 | PM.OBPNL ---
Subjective Date Seen: 05/20/22 Narrative: Renetta is coping well with labor pain/contractions but is reporting fatigue and the want for rest and pain relief. She is currently being supported by partner. She initially did not want anything for pain due to fear with history of colon issues. Her labor has progressed slowly and she is beginning to feel fatigued, tearful, and ready to be done. She has labored in the tub and utilized multiple position techniques to assist in labor progress. She uses her safe word when asking for an epidural. Offered recheck prior to epidural in case she was in a position of pushing before epidural. She agrees. No questions or concerns. Objective Exam: Constitutional: Alert and oriented x3, severe distress, coping ok but tearful and sobbing during contractions? Vital signs stable, see nurse documentation?? Abdomen: gravid, contractions palpate strong with contractions and soft between? Vital Signs: Last Vital Signs Temp 97.9 F 05/20/22 00:05 Pulse 105 H 05/20/22 08:23 Resp 16 05/19/22 18:24 BP 117/78 05/20/22 08:23 Pulse Ox 100 05/20/22 08:18 Pelvic Exam Dilation (cm): 6-7 Effacement (%): 90 Station: 0 Contractions Monitor mode: External Contraction Frequency: 2-3 Contraction pattern: Regular Contraction intensity: Moderate Assessment Assessment: active labor Station: 0 Amniotic Membrane Status: AROM (Clear fluid continued) Status: Category l Heart Rate Baseline: 135 [facility] Variability: Moderate (6-25) Monitor Accelerations: Present Monitor Decelerations: None Tracing Comments: Intermittent monitoring reassuring, switched to continuous with epidural placement. Labor Progress: Slow labor progression, swollen anterior cervix noted with exam. Maternal Status: Requesting epidural. Plan Plan: ASSESSMENT:? 28 at 39 6/7 weeks gestation? complicated by:?Rh negative status Labor type: Spontaneous, Early labor? Category I tracing Labor complicated by: Prolonged latent labor GBS negative AROM, clear fluid ? PLAN:? 1. Routine intrapartum cares as ordered. Continue with expectant management. 2. Monitoring per policy, continuous with epidural. 3. Proceed with epidural placement and anticipate rest for patient and partner. 4. Encouraged continued position changes with epidural to facilitate labor progress. 5. Anticipate , collect cord blood at delivery.
--- NOTE | 2022-05-20 08:29 | PM.ANBPRC ---
[facility] Medical History (Updated 05/19/22 @ 17:45 by Anna Parisi CNM) Megacolon Surgical History (Updated 04/30/22 @ 10:14 by Renetta Dee CNM) History of facial surgery Social History Smoking Status: Former smoker Meds Home Medications and Allergies Home Medications Medication Instructions Recorded Confirmed Type ferrous sulfate 325 mg (65 mg 325 mg PO QDAY 01/26/22 05/19/22 History iron) tablet,delayed release prenat.vits,guru,wzu-putb-naxqo 1 tab PO QDAY 01/26/22 05/19/22 History magnesium 200 mg tablet 500 mg PO QDAY 03/12/22 05/19/22 History doxylamine succinate 25 mg tablet 25 mg PO ONCE 04/09/22 05/19/22 History (Unisom (doxylamine)) Allergies Allergy/AdvReac Type Severity Reaction Status Date / Time mold Allergy Severe Anaphylaxis Uncoded 05/14/22 08:19 Other Blue Cheese Allergy Intermediate Hives Uncoded 05/14/22 08:19 Nitrofurantoin Allergy Mild Swelling Uncoded 05/14/22 08:19 of the Eye Penicillin Allergy Unknown Childhood Uncoded 05/14/22 08:19 allergy Results Labs Labs: Laboratory Results - last 24 hr 05/19/22 13:55 SARS-CoV-2 (PCR) Negative SARS-CoV-2 Vital Signs Vital Signs: Last Vital Signs Temp 97.9 F 05/20/22 00:05 Pulse 93 05/20/22 08:29 Resp 16 05/19/22 18:24 BP 113/62 05/20/22 08:29 Pulse Ox 100 05/20/22 08:18 Weight: 83.189 kg Height: 165.1 cm Anesthesia Procedures Epidural Insertion Patient Location: OB Start Time: 07:45 Stop Time: 08:30 Start Date: 05/20/22 Stop Date: 05/20/22 Reason for Block: procedure for pain Patient Position: sitting Performed By: Adonis Mcclain Preanesthetic Checklist: IV checked, site marked, risks and benefits discussed, surgical consent, monitors and equipment checked, pre-op evaluation, timeout performed and anesthesia consent Prep: chlorhexidine gluconate Monitoring: blood pressure monitoring, continuous pulse oximetry and heart rate Approach: midline Vertebral Space: lumbar (1-5) Epidural Technique: STONE air Needle Type: Tuohy needle Injection Technique: continuous catheter Needle gauge: 17 Needle Length (cm): 10 cm Needle Insertion Depth (cm): 5 Catheter Gauge: 19 Catheter Type: multi-orifice Catheter at skin depth (cm): 12 Test Dose Result: negative and lidocaine 1.5% with epinephrine 1 to 200,000
[2022-05-20] MEDS: PHENYLEPHRINE 100 MCG/ML SYRINGE IVP ×3 (08:43→11:33)
[2022-05-20] MEDS: diphenhydrAMINE 25 MG CAPSULE 50 MG PO (09:52)
[2022-05-20] MEDS: LACTATED RINGERS 1000 ML 1,000 ML 325 ML IV (12:55)
--- NOTE | 2022-05-20 13:53 | P.OBPN_ITS ---
Subjective Date Seen: 05/20/22 Narrative: Renetta is coping well with labor pain/contractions with epidural now in place. Called to room for delivery. RN reported that she was complete and low. Attempted pushing x1 hour with minimal change in position. Epidural seems very dense, minimal pelvic floor movement noted with exam during pushing and patient reports she doesn't feel much. Discussed turning down or off the epidural to assist with pushing. Objective Exam: Constitutional: Alert and oriented x3, no distress, coping well with epidural in place.? Vital signs stable, see nurse documentation?? Abdomen: gravid, contractions palpate strong with contractions and soft between? Vital Signs: Last Vital Signs Temp 98.5 F 05/20/22 13:21 Pulse 94 05/20/22 13:49 Resp 16 05/20/22 13:21 BP 94/55 L 05/20/22 13:49 Pulse Ox 100 05/20/22 08:18 Pelvic Exam Dilation (cm): 10 Effacement (%): 100 Station: +2 Comments: Some caput noted with exam Contractions Monitor mode: External Contraction Frequency: 2-4 Contraction pattern: Regular Contraction intensity: Strong/Firm Assessment Assessment: active labor Station: +2 Amniotic Membrane Status: AROM (Clear fluid continued) Status: Category l Heart Rate Baseline: 140 Loader Unloader Variability: Moderate (6-25) Monitor Accelerations: Present Monitor Decelerations: None Plan Plan: ASSESSMENT:? 26 at 40 0/7 weeks gestation? complicated by:?Rh negative status Labor type: Spontaneous, Early labor? Category I tracing Labor complicated by: Prolonged latent labor GBS negative ? PLAN:? 1. Routine intrapartum cares as ordered. Continue with expectant management. 2. Monitoring per policy, continuous with epidural. 3. Discussed turning down or off the epidural to help patient feel sensation for pushing. Patient agreeable. Will wait for patient to feel some pelvic pressure before resuming pushing as long as FHR is reassuring. 4. Encouraged continued position changes with epidural to facilitate labor progress. 5. Anticipate , collect cord blood at delivery.
[2022-05-20] MEDS: ACETAMINOPHEN 500 MG TABLET 1000 MG PO (16:25)
--- NOTE | 2022-05-20 16:53 | P.OBPRC_ITS ---
Procedure Delivery date: 05/20/22 Procedure Done: Global Intrapartal Events: Labor Augmentation (w/ AROM), Prolonged Labor >20 Hrs and Prolonged 2nd Stage >2.5 Hrs (Dense epidural, stopped and passive descent while awaiting for urge to push) Delivery augmentation: rupture of membranes Delivery monitor: external FHT and external uterine Route of delivery: Laceration description: Periurethral - 1st Degree (w/ extension to right labial avulsion) Delivery repair: Vicryl (4-0) Estimated blood loss (mL): 150 Anesthesia type: Epidural Disposition: floor Narrative: The patient is a 26 year-old G2 now P1011 admitted on 05/19/22 at 39 Weeks, 6 Days gestation for spontaneous onset of labor.? Cervical exam on admission was 3 cm/70 % effaced/-2 station with membranes intact in vertex presentation.? Contractions were every 2-3 minutes.? heart rate demonstrated baseline 135 bpm with moderate variability, + accelerations, - decelerations; a category 1 tracing.? AROM occurred at 0118 with clear fluid. ? Labor Analgesia:? Epidural ? Pitocin:? No ? Labor onset:? 05/19/2022 1300 ? Complete:? 05/20 1147 ? Pushing:? 05/20 1201 ? heart tones during second stage were reassuring throughout. Variable decelerations noted with last 30 minutes of pushing with moderate variablity and return to baseline. Terminal bradycardia with delivery of head to the eye brows for approximately 1 minute before delivery. ? Patient was admitted for spontaneous onset of labor and progressed slowly with augmentation of AROM at 0118 with clear fluid. Patient labored unmedicated for most of her labor but began to feel fatigue and desired epidural at about 8 am this morning when cervical change was minimal with notable cervical swelling. She then was comfortable with an epidural and able to rest. Patient was complete at 1147 and pushing at 1201. Pushing was initiated with head in +2 station. During just over 1 hour of pushing, no descent was made. The epidural was so dense, the patient had no urge or sensation to guide pushing. It was decided to turn of her epidural for return of sensation to assist with pushing. Patient rested with passive descent for approximately 1 hour before pushing was resumed. Patient needed continual redirection and guidance during pushing as she was not coping well with minimal pain relief but was able to push significantly better with urge. Head delivered to brows, she waited for next contraction before delivering the rest of the head. Nuchal cord loose and easily reduced. Body did not easily deliver, shoulders were easily palpated. Body delivered slowly with assistance by looping fingers under the fetus armpits, without in cident. of a viable male at 1543 in semi-fowlers in the bed. Vertex delivered OA. Infant passed to mothers abdomen with a vigorous cry. Cord was clamped and cut at > 5 minutes. APGARS were 6 at one minute and 9 at five minutes respectively. Mouth was bulb suctioned. Intact placenta with a 3 vessel cord delivered spontaneously at 1604. Fundus firm. Bilateral periurethral, right side extension into labial avulsion identified and repaired in typical fashion. QBL 150 cc. Mother and baby stable; mother plans to breastfeed. Infant weight pending. ? Placenta delivered spontaneously and complete at 1604 with a 3 vessel cord. Bilobed appearance of the placenta with cord insertion directly between the two lobes. Sent to pathology. ? Mother and infant were stable after delivery. ? Lacerations:? Bilateral periurethral, right side extension into labial avulsion, repaired with 4-0 vicryl. ? Blood loss: 150 mL. Blood loss measurement type: QBL; No medications given for AMTSL ? Sponge and needles counts are correct. Infant Gender: Male presentation: vertex Placental Delivery Description: Spontaneous Cord Description: 3 Vessels, Loose and Reduced OB Vag Delivery Procedures Additional Procedures ECV: No Cook Catheter Insertion: No NST: No D&C: No Laceration Repair: Yes Tubal Ligation : No Other: No
[2022-05-20] MEDS: LIDOCAINE 1% MDV 20 ML INJECTION (17:51)
[2022-05-20 19:34] LABS: Hematocrit 33.2 % (33.0-51.0); Hemoglobin* 11.1 gm/dL (12.0-16.0); Mean Corpuscular HGB Conc 33 gm/dL (32-36); Mean Corpuscular Hemoglobin 31 pg (26-34); Mean Corpuscular Volume 94 fL (80-100); Platelet Count* 239 K/uL (140-440); Red Blood Count 3.54 m/uL (4.00-5.20); White Blood Count* 21.34 K/uL (4.50-11.00)
[2022-05-20 19:45] LABS: Slide Review Reflex No
[2022-05-20 19:50] LABS: Creatinine* 0.9 mg/dL (0.5-1.5); Est. Creatinine Clearance* 83.74; Estimated Glomerular Filt Rate 89 ml/min
[2022-05-20 19:51] LABS: Alanine Aminotransferase* 19 U/L (4-35); Aspartate Amino Transferase* 44 U/L (12-35); Blood Urea Nitrogen* 13 mg/dL (5-24)
[2022-05-20] MEDS: IBUPROFEN 600 MG TABLET PO (20:15)
[2022-05-21] MEDS: ACETAMINOPHEN 500 MG TABLET 1000 MG PO (00:03)
[2022-05-21 03:00] VITALS: BP 123/82; PULSE 91; RESP 16; TEMP 36.5; O2SAT 97
[2022-05-21] MEDS: IBUPROFEN 600 MG TABLET PO ×3 (03:01→20:30)
[2022-05-21 07:01] LABS: Hematocrit 29.8 % (33.0-51.0); Hemoglobin* 9.8 gm/dL (12.0-16.0); Mean Corpuscular HGB Conc 33 gm/dL (32-36); Mean Corpuscular Hemoglobin 31 pg (26-34); Mean Corpuscular Volume 95 fL (80-100); Platelet Count* 203 K/uL (140-440); Red Blood Count 3.15 m/uL (4.00-5.20); White Blood Count* 14.68 K/uL (4.50-11.00)
[2022-05-21 07:07] LABS: Slide Review Reflex No
[2022-05-21 07:18] LABS: Alanine Aminotransferase* 18 U/L (4-35); Aspartate Amino Transferase* 45 U/L (12-35); Creatinine* 0.9 mg/dL (0.5-1.5); Est. Creatinine Clearance* 83.74; Estimated Glomerular Filt Rate 89 ml/min
--- NOTE | 2022-05-21 07:26 | PM.OBPNVD1 ---
OB - PN:Subj Subjective Time Seen by Provider: 07:27 Date Seen: 05/21/22 Interval history: Renetta is a 26 year old G 2 now P 1 at 40 0/7 weeks gestation that was admitted to the Center on 05/19/22 for Labor. She had an uncomplicated vaginal delivery. She delivered a viable male , Ace. She is breast feeding. the patient has done well. Patient comments OB post-: no complaints, pain well controlled, tolerating diet and flatus present Henderson status: feeding status: exclusively OB - PN: Obj Exam Physical Exam: Vital signs: Temp Pulse Resp BP Pulse Ox O2 Del Method 97.7 F 91 16 123/82 97 05/21/22 03:00 05/21/22 03:00 05/21/22 03:00 05/21/22 03:00 05/21/22 03:00 05/21/22 03:00 Constitutional: Constitutional: no acute distress Routine HEENT Exam: Head: Present normocephalic Eye: Present normal appearance Routine Neck Exam: Neck: Present full ROM Routine Respiratory Exam: Respiratory: Present CTA bilaterally Routine Cardiovascular Exam: Cardiovascular: Present RRR Routine Abdominal Exam: Abdominal: Present normal bowel sounds, soft and tenderness Fundus: Present firm (u/1) Routine Exam: External: Present lacerations (well aproximated/repaired) and normal external exam; Absent erythema or swelling Perineum Description: Normal Routine Extremities Exam: Extremities: Present full ROM; Absent pedal edema Routine Back/Spine/Pelvis Exam: Back/Spine: Present full ROM Routine Skin Exam: Skin: Present dry, intact, normal color and warm; Absent rash Routine Neurological Exam: Neurological: Present alert and oriented X3 Detailed Neurological Exam: Coma Scale: Eye Opening: Spontaneous (4) Verbal Response: Orientated (5) Routine Psychiatric Exam: Psychiatric: Present normal affect, normal thought process, cooperative, good insight and good judgment OB - PN: Obj Data Labs Labs: Laboratory Results - last 24 hr 05/20/22 05/20/22 05/21/22 19:23 19:23 06:45 WBC 21.34 H 14.68 H RBC 3.54 L 3.15 L Hgb 11.1 L 9.8 L Hct 33.2 29.8 L MCV 94 95 MCH 31 31 MCHC 33 33 Plt Count 239 203 BUN 13 Creatinine 0.9 Estimated Creat Clear 83.74 Estimated GFR 89 AST 44 H ALT 19 05/21/22 06:45 WBC RBC Hgb Hct MCV MCH MCHC Plt Count BUN Creatinine 0.9 Estimated Creat Clear 83.74 Estimated GFR 89 AST 45 H ALT 18 OB - PN: A/P Vaginal Delivery Assessment and Plan (1) Lactating mother: Status: Acute (2) examination following vaginal delivery: Status: Acute Plan 26 yo G2 now P1 Post Vaginal Delivery Day 1 - Routine PP Care - support as needed Hgb 9.8 - pt will continue Slow Fe+ she has been taking during AST 45 - Continue to monitor blood pressures and labs for s/s of Pre-Eclampsia Plan to discharge home tomorrow Plan day: 1 Plan: routine care
[2022-05-21 08:05] VITALS: BP 120/79; PULSE 79; RESP 18; TEMP 36.8; O2SAT 99
[2022-05-21 14:39] VITALS: BP 130/82; PULSE 89; RESP 16; TEMP 37.1; O2SAT 99
[2022-05-21 16:30] VITALS: BP 119/77; PULSE 100; RESP 16; TEMP 37.1; O2SAT 100
[2022-05-21 20:10] VITALS: BP 131/84; PULSE 106; RESP 16; TEMP 37.5; O2SAT 100
[2022-05-21 21:14] VITALS: BP 119/80; PULSE 110; RESP 16; TEMP 37.6; O2SAT 96
[2022-05-22 00:35] VITALS: BP 129/74; PULSE 116; RESP 16; TEMP 36.6; O2SAT 100
[2022-05-22 04:00] VITALS: BP 119/81; PULSE 116; RESP 16; TEMP 36.9; O2SAT 96
[2022-05-22 08:00] VITALS: BP 114/70; PULSE 102; RESP 16; TEMP 37; O2SAT 98
[2022-05-22] MEDS: FERROUS SULFATE 325 MG TABLET PO (08:10)
--- NOTE | 2022-05-22 08:32 | P.DS_ITS ---
DS: Providers Provider Date Seen: 05/22/22 Date of admission: 05/19/22 13:50 Primary care physician: Not a Local Provider Admitting Clinician: Anna Parisi CNM Attending Physician on discharge: Anna Parisi CNM Date of Discharge: 05/22/22 DS: Diagnosis Discharge Diagnosis (1) care and examination of lactating mother: Status: Acute (2) examination following vaginal delivery: Status: Acute (3) Gestational hypertension: Status: Acute Problem details: Labs WNL except AST of 44. Discussed with Dr. Stevens. Labs repeated next am, AST 45 and all others remain WNL. (4) Lactating mother: Status: Acute (5) Rh negative status during : Status: Acute Exam Const: Vital Signs, click to edit/add: Vital Signs - 24 hr 05/21/22 14:39 05/21/22 16:30 05/21/22 20:10 Temperature 98.8 F 98.7 F 99.5 F Pulse Rate Pulse Rate [Blood Pressure Cuff] 106 H Pulse Rate [Pulse Oximeter] 89 100 Respiratory Rate 16 16 16 Blood Pressure Blood Pressure [Le ft Arm] 130/82 119/77 131/84 Pulse Oximetry 99 100 100 Oxygen Delivery Me thod Room Air Room Air Room Air 05/21/22 21:14 05/22/22 00:35 05/22/22 04:00 Temperature 99.6 F 98 F 98.5 F Pulse Rate 110 H Pulse Rate [Blood Pressure Cuff] 116 H 116 H Pulse Rate [Pulse Oximeter] Respiratory Rate 16 16 16 Blood Pressure 119/80 Blood Pressure [Le ft Arm] 129/74 119/81 Pulse Oximetry 96 100 96 Oxygen Delivery Me thod Room Air Room Air Documenting provider has reviewed patient's vital signs: yes Common normals: no apparent distress, oriented x3, healthy appearing and alert HENMT: Common normals: normocephalic Head and scalp: normocephalic Eye: Common normals: PERRL Pupil: PERRL Neck & C-Spine: Common normals: full ROM and supple Chest: Common normals: inspection of chest normal Resp: Common normals: normal respiratory effort and clear to auscultation bilaterally Auscultation: clear to auscultation bilaterally Cardio: Common normals: regular rate and regular rhythm Rate: regular rate Rhythm: regular rhythm GI: Common normals: soft to palpation Palpation: soft : OB/external & speculum: Yes perineal/vaginal laceration (well approximated) Laceration: periurethral Uterus: U/1 Lochia: scant Back & Pelvis: Common normals: thoracic and lumbar spine normal to inspection Extremity: Common normals: normal to inspection and full ROM Neuro: Common normals: oriented x3 Sensorium/orientation: alert Speech: speech normal Psych: Common normals: mental status grossly normal, thought process normal, speech normal and activity/motor behavior normal Speech: normal speech Thought process: normal thought process Skin: Common normals: no rashes or lesions noted General skin exam: no rashes or lesions noted OB - DS: Summary Hospital Course Hospital Course: The patient is a 26 year old G 2 P 1011 at 39 6/7 weeks gestation that was admitted to the Center on 05/19/22 for spontaneous onset of labor. She had an uncomplicated vaginal delivery. She delivered a viable male infant. She is breast feeding but reports that he has an aversion to the breast and is instead hand expressing and finger feeding back pumped milk. She continues to work on and offer the breast. the patient has done well. ?Vitals have been stable.? She has remained afebrile.? She is voiding without difficulty.? She is passing gas and has had a bowel movement.? She is ambulating and denies any dizziness.? She is planning the mini pill for control.? Peripartum Data delivery method: Vaginal Laceration description: Periurethral - 1st Degree (bilateral with extension of right labial with avulsion) complications: none Chancellor Infant Gender: Male Infant Discharge Plan: Home Status at Discharge Functional status at discharge: independent ambulation Overall status at discharge: patient is progressing back to baseline Time Spent with Patient Time attestation: Total time spent providing and/or coordinating discharge services: Time spent: Less than 30 minutes Discharge Plan Discharge Disposition: Home, Self-Care Date of Admission: 05/19/22 13:50 Attending Provider on Discharge: Anna Parisi Primary Care Provider: Provider,Not a Local Condition: Stable Anticipated Discharge Date/Time: 05/22/22 12:00 Discharge Medications: New acetaminophen 500 mg Tablet 1,000 mg PO Q6H PRNQty: 0 0RF ibuprofen 600 mg Tablet 600 mg PO Q6H PRNQty: 60 0RF Continued prenat.vits,guru,njn-aops-ndkeo Tablet 1 tab PO QDAY magnesium 200 mg tablet 500 mg PO QDAY ferrous sulfate 325 mg (65 mg iron) tablet,delayed release (DR/EC) 325 mg PO QDAY Qty: 90 0RF Discontinued Unisom (doxylamine) 25 mg tablet 25 mg PO ONCE Discharge Orders: Discharge Order (Routine); Ordered 05/22/22 Ordered By: Anna Parisi Patient Education: OB Vaginal/Breast Feeding Additional Instructions: Discharge instructions were reviewed with the patient including signs and symptoms of infection and home going medications Nothing vaginally for 6 weeks: no tampons or intercourse Off Work or School for 6 weeks 2-week visit: discuss infant feeding concerns, review control options and screen for anxiety/depression. 6-week visit for an annual exam. consultation services are available to all mothers and babies for the first year after delivery.? To make an appointment, please call [phone]. Activity Level: Activity as Tolerated Discharge Diet: Regular Follow Up Appointments: [facility] [Provider Group] (2 weeks and 6 weeks) Forms: [employer] Info Instructions
[2022-05-22 11:04] VITALS: BP 110/75; PULSE 91; RESP 16; TEMP 37; O2SAT 97
== END 2022-05-22 12:15 | disposition home or self-care (01) | DRG 807 ==
LOC: OB OUT 13:55 → OB 13:55
PROVIDERS: Admitting Provider Advanced Practice Midwife; Visit Provider Advanced Practice Midwife
DX: O63.0 Prolonged first stage (of labor) (principal); Z37.0 Single live birth; O63.1 Prolonged second stage (of labor); O13.4 Gestational [pregnancy-induced] hypertension without significant proteinuria, complicating childbirth; O71.82 Other specified trauma to perineum and vulva; G25.81 Restless legs syndrome; Z3A.39 39 weeks gestation of pregnancy
CPT/HCPCS: 1967; 36415; 82565; 84450; 84460; 84520; 85018; 85027; 85461; 87635; A9270; J2370; J2791; J2795; J7120

== ENCOUNTER 2024-01-18 13:07 | Emergency (ER) | payer OTHER, SELFPAY ==
[2024-01-18 13:17] VITALS: BP 137/88; PULSE 92; RESP 18; TEMP 37.2; O2SAT 99; BMI 21.3
--- NOTE | 2024-01-18 13:35 | CRLHL7_ITS ---
For Patients: As a result of the Century Cures Act, medical imaging exams and procedure reports are released immediately into your electronic medical record. You may view this report before your referring provider. If you have questions, please contact your health care provider. INDICATION: Vaginal bleeding 7 weeks left lower quadrant pain TECHNIQUE: Real-time buckley-scale imaging of the pelvis was performed. FINDINGS: Small 3 millimeter cystic structure the endometrial cavity this could represent pseudo gestational sac or early gestational sac. No pole or yolk sac seen at this time. No perigestational hemorrhage. The right ovary measures 4.1 x 2 x 2.4 centimeters normal blood flow to the right ovary. The left ovary measures 2.8 x 1 x 1.6 centimeters with normal blood flow. Small amount of free fluid in the pelvis. IMPRESSION: Small 3 millimeter cystic structure in the endometrium could represent a very early gestational sac however pole and yolk sac is not seen at this time. Ovaries are visualized with normal blood flow and appear unremarkable. Small amount of free fluid in the pelvis. No adnexal mass. Recommend correlation with beta HCG levels and short interval follow-up. Dictated by Cece Vasquez MD @ 01/18/2024 3:14:08 PM (Electronically Signed)
--- NOTE | 2024-01-18 13:38 | ED_ITS ---
HPI - General Adult General Chief complaint: OB/Uterine Contractions Stated complaint: 7 weeks preg, bleed, dizzy, bad head ache Time Seen by Provider: 01/18/24 13:30 History of Present Illness HPI narrative: Patient is a 28 year white female G3 who presents with small amount of vaginal bleeding when she wiped today, as well as a headache . She has had a history of being Rh negative, history of anxiety, history of gestational hypertension. She is about 7 weeks estimated gestational age by LMP, she reports she has an initial OB appointment with 1 of the mid castaneda next week. No leg swelling or edema, her blood pressure today is little elevated 137/88 temp 98.9? O2 sat excellent at 99%. She has no some pelvic cramping since about 4 this morning. She has had a miscarriage and this is her 3rd as mention Related Data Home Medications ?Medication ?Instructions ?Recorded ?Confirmed prenat.vits,guru,lmy-cypd-hwsuy 1 tab PO QDAY 01/26/22 01/18/24 cetirizine 10 mg capsule (Zyrtec) 10 mg PO QDAY PRN 07/02/22 08/27/22 Previous Rx's ?Medication ?Instructions ?Recorded desogestrel 0.15 mg-ethinyl 1 tab PO QDAY #84 tabs 06/03/23 estradiol 0.03 mg tablet (Apri) Allergies Allergy/AdvReac Type Severity Reaction Status Date / Time mold Allergy Verified 01/18/24 13:17 nitrofurantoin Allergy eye Verified 01/18/24 13:17 swelling Penicillins Allergy Anaphylaxis Verified 01/18/24 13:17 Other Blue Cheese Allergy Intermediate Hives Uncoded 08/27/22 15:42 Review of Systems Status of ROS: Reports: 6 or more systems reviewed and unremarkable except as noted in History and below [facility] Medical History (normal spontaneous vaginal delivery) ?O80 - Encounter for full-term uncomplicated delivery (ICD-10) Restless leg syndrome in ?O99.350 - Diseases of the nervous system complicating , unspecified trimester (ICD-10) ?G25.81 - Restless legs syndrome (ICD-10) Megacolon ?K59.39 - Other megacolon (ICD-10) Surgical History History of facial surgery ?Z98.890 - Other specified postprocedural states (ICD-10) Social History Smoking Status: Former smoker Little interest or pleasure in doing things: several days Feeling down, depressed, or hopeless: several days Exam Narrative: Exam Narrative: Objective: Vital signs are within normal limits, alert orient x3 noncyanotic In no distress Pulse regular Abdomen benign soft Extremities good perfusion neurologic nonfocal Abdomen is soft nontender Const: Vital Signs, click to edit/add: Vital Signs - 24 hr 01/18/24 13:17 Temperature 98.9 F Pulse Rate [Pulse Oximeter] 92 Respiratory Rate 18 Blood Pressure [Ri ght Upper Arm] 137/88 Pulse Oximetry 99 Oxygen Delivery Me thod Room Air Course Vital Signs Vital signs: Initial Vital Signs Temperature 98.9 F 01/18/24 13:17 Temperature Source Temporal Artery Scan 01/18/24 13:17 Pulse Rate 92 01/18/24 13:17 Respiratory Rate 18 01/18/24 13:17 Blood Pressure 137/88 01/18/24 13:17 Blood Pressure Mean 104 01/18/24 13:17 Blood Pressure Position Sitting 01/18/24 13:17 Pulse Oximetry 99 01/18/24 13:17 Oxygen Delivery Method Room Air 01/18/24 13:17 Vital Signs Temperature 98.9 F 01/18/24 13:17 Pulse Rate 92 01/18/24 13:17 Respiratory Rate 18 01/18/24 13:17 Blood Pressure 137/88 01/18/24 13:17 Pulse Oximetry 99 01/18/24 13:17 Oxygen Delivery Method Room Air 01/18/24 13:17 Temperature 98.9 F 01/18/24 13:17 Pulse Rate 92 01/18/24 13:17 Respiratory Rate 18 01/18/24 13:17 Blood Pressure 137/88 01/18/24 13:17 Pulse Oximetry 99 01/18/24 13:17 Oxygen Delivery Method Room Air 01/18/24 13:17 Medications Administered Medications: Discontinued Medications Generic Name Dose Route Start Last Admin Trade Name Freq PRN Reason Stop Dose Admin Acetaminophen 1,000 mg 01/18/24 15:08 01/18/24 15:26 Acetaminophen 500 Mg Tablet PO 01/18/24 15:09 1,000 mg ONCE ONE Administration Sodium Chloride 1,000 mls @ 6,000 mls/hr 01/18/24 13:45 01/18/24 14:00 0.9 % Sodium Chloride 1000 Ml IV 01/18/24 13:54 6,000 mls/hr .Q10M NU Administration Medical Decision Making MDM Narrative Medical decision making narrative: 28-year-old G3 para 1 with 7 weeks estimated gestational age with some vaginal cramping, she is Rh negative, has had a little bit of vaginal bleeding. Will check an ultrasound at this time, labs, hCG. Will discuss with Ob whether she needs RhoGAM or not based on her ultrasound and lab studies. Addendum 3:00 p.m. patient's ultrasound looks reassuring it appears to be about 5 weeks, there is no obvious heartbeat by tech report, there was good blood flow to the ovaries. She feels a little bit better, given she has had bleeding I think after consult station with OBGYN doctor moved it was recommended she get RhoGAM in this will be done. She will follow up in 48 hours for repeat hCG and follow-up in the clinic. Return sooner to the ER problems or concerns. Light activity, may use Tylenol as needed. Lab Data Labs: Lab Results 01/18/24 Range/Units 13:45 WBC 6.45 (4.50-11.00) K/uL RBC 4.10 (4.00-5.20) m/uL Hgb 12.3 (12.0-16.0) gm/dL Hct 37.4 (33.0-51.0) % MCV 91 (80-100) fL MCH 30 (26-34) pg MCHC 33 (32-36) gm/dL RDW Coeff of Doreen 12.4 (11.5-15.5) % Plt Count 315 (140-440) K/uL Neut % (Auto) 58.0 (42.0-72.0) % Lymph % (Auto) 31.8 (20-44) % [place] % (Auto) 8.1 (0.0-11.0) % Eos % (Auto) 1.9 (0.0-7.0) % Baso % (Auto) 0.0 (0.0-3.0) % Neut # (Auto) 3.75 (1.7-7.0) K/uL Lymph # (Auto) 2.05 (0.90-2.90) K/uL [place] # (Auto) 0.50 (0.00-0.90) K/UL Eos # (Auto) 0.12 (0.00-0.50) K/uL Baso # (Auto) 0.00 (0.00-0.30) K/uL Abs Immat Gran (auto) 0.01 (0.00-0.30) K/uL Imm/Tot Granulo (auto) 0.2 % Sodium 140 (135-149) mmol/L Potassium 3.8 (3.6-5.1) mmol/L Chloride 106 (96-114) mmol/L Carbon Dioxide 25 (20-32) mmol/L Anion Gap 9 (7-15) mEq/L BUN 11 (5-24) mg/dL Creatinine 0.5 (0.5-1.5) mg/dL Estimated Creat Clear 148.04 Estimated GFR 129 ml/min Glucose 73 (60-115) mg/dL Calcium 9.4 (8.4-10.6) mg/dL HCG, Quant 1788.60 mIU/mL Discharge Plan Discharge Clinical Impression: First trimester , Abdominal cramping, Threatened miscarriage Patient Disposition: Home w/ Parent or Adult Condition: Improved Additional Instructions: Very light activity, fluids, Tylenol as needed, you receive RhoGAM today, recommend he follow-up in 48 hours or 2 days to the women's health clinic or your primary care doctor to get a repeat beta hCG level which is a hormone to make sure that is rising appropriately. It should double every 2 days. Return sooner problems concerns or difficulty. Activity Level: Light activity Discharge Diet: Regular Prescriptions: No Action Zyrtec 10 mg capsule 10 mg PO QDAY PRN prenat.vits,guru,zvm-ckkg-osoou Tablet 1 tab PO QDAY desogestrel-ethinyl estradiol [Apri] 0.15-0.03 mg tablet 1 tab PO QDAY Qty: 84 0RF Hold Instructions: Follow Up/Referrals: Provider,Not a Local [Primary Care Provider] - Stand Alone Forms: [employer] Info Instructions
[2024-01-18 13:55] LABS: Eosinophils Absolute Auto 0.12 K/uL (0.00-0.50); Eosinophils Percent Auto 1.9 % (0.0-7.0); Hematocrit 37.4 % (33.0-51.0); Hemoglobin* 12.3 gm/dL (12.0-16.0); Immature Granulocytes Abs Auto 0.01 K/uL (0.00-0.30); Immature Granulocytes Pct Auto 0.2 %; Lymphocytes Absolute Auto 2.05 K/uL (0.90-2.90); Lymphocytes Percent Auto 31.8 % (20-44); Mean Corpuscular HGB Conc 33 gm/dL (32-36); Mean Corpuscular Hemoglobin 30 pg (26-34); Mean Corpuscular Volume 91 fL (80-100); Monocytes Percent Auto 8.1 % (0.0-11.0); Neutrophils Absolute Auto 3.75 K/uL (1.7-7.0); Platelet Count* 315 K/uL (140-440); RDW Coefficient of Variation % 12.4 % (11.5-15.5); White Blood Count* 6.45 K/uL (4.50-11.00)
[2024-01-18] MEDS: 0.9 % SODIUM CHLORIDE 1000 ml 1,000 ML 6000 ML IV (14:00)
--- OUTSIDE RECORDS SUMMARY | 2024-01-18 14:00 | XMS_ITS | Clinical Summary ---
[facility] Organization [facility] Address [address] [place] [address] Care Team Providers Care Training Director Name Role Phone Genesis Hampton MD Primary Care Provider Source Comments You are receiving this document as you are listed as the primary care provider,follow-up provider, or the patient has been referred to you for consultation.This is in compliance with the Medicare and[facility] EHR Incentive Program,which states Providers who transition their patient to another setting of careor provider of care or refers their patient to another provider of care shouldprovide summary care record for each transition of care or referral. [employer] Allergies Active Allergy Reactions Criticality Noted Date Comments Nitrofurantoin Hives High 2018 Other Hives High 2018 [place]-MCR; pt mom reported Medications Medication Sig Dispensed Refills Start Date End Date Status cetirizine (AKA ZYRTEC) 10 MG tablet Take 1 tablet by mouth daily as needed. LW Addl Instr:Indicated for: Allergies PRN 09/21/2010 Active APRI 0.15-30 MG-MCG tabletIndications:Enc ounter for surveillance of contraceptive pills TAKE 1 TABLET BY MOUTH EVERY DAY 84 Tablet 10/08/2019 Active Resolved Problems Problem Noted Date Diagnosed Date Resolved Date Excessive or frequent menstruation 07/18/2009 07/12/2017 Overview: Menorrhagia Immunizations Name Administration Dates Next Due 4vHPV (Gardasil) 04/03/2011,11/22/2010, 1 DTP 03/19/1994,01/23/1994,1993 DTaP 07/15/1996 HepB, Unspecified Formulation 07/15/1996, 994,1993 Hib, Unspecified Formulation 03/19/1994,01/23/19 94,1993 MMR 01/17/1995 OPV, Trivalent (Orimune or tOPV) 03/19/1994,12/28,1993 TDAP (BOOSTRIX) 12/17/2014 Family History Medical History Relation Name Comments Bipolar Disorder Father Osteoarthritis Father back surgery Osteoarthritis Mother scoliosis Cancer Maternal Grandmother Dermato fibrosarcoma Relation Name Status Comments Father Alive Mother [...] 1 (1 standard drink = 0.6 oz pur e alcohol) rarely Sex and Gender Information Value Date Recorded Sex Assigned at Not on file Gender Identity Not on file Sexual Orientation Not on file Last Filed Vital Signs Vital Sign Reading Time Taken Comments Blood Pressure 115/71 2018 4:11 PM CONTENT MANAGER Pulse 96 2018 4:11 PM CONTENT MANAGER Temperature 36.2 ??C (97.2 ??F) 09/21/2010 4 :22 PM CONTENT MANAGER ORAL C: 36.2 C Respiratory Rate - - Oxygen Saturation - - Inhaled Oxygen Concentration - - Weight 48.9 kg (107 lb 14.4 oz) 2018 4:11 PM CONTENT MANAGER Height 165.6 cm (5' 5.2) 2018 4: 11 PM CONTENT MANAGER Body Mass Index 17.85 2018 4:11 PM CONTENT MANAGER Plan of Treatment Health Maintenance Due Date Last Done Comments Hep C Screening (Preventive Services) 1993 IPV (Polio) (4 of 4 - 4-dose series) 1997 03/19/1994, 01/23/1994, 1993 HIV Screening (Preventive Services) 2009 Adult Preventive Visit 2020 9, 07/12/2017, 03/30/2016 Cervical Cancer Screening 08/28/20212018, 07/12/2017, 03/30/2016, Additional history exists COVID-19 Vaccine ( season) 2023 Influenza (Season Ended) 2024 DTaP/Tdap/Td (6 - Tdap) 12/17/2024 12/18/19 15, 07/15/1996, 03/19/1994, Additional history exists Zoster/Shingles (1 of 2) 2043 Hib Aged Out 03/19/1994, 12/28, 1993 No longer eligible based on patient's age to complete this topic HepB Completed 07/15/1996, 10/27, 1993 HPV Vaccine Completed 04/03/2011, 10/28, 09/21/2010 HepA Aged Out No longer eligi ble based on patient's age to complete this topic MCV4 Aged Out No longer eligi ble based on patient's age to complete this topic Pneumococcal Aged Out No longer eligi ble based on patient's age to complete this topic Procedures Procedure Name Priority Date/Time Associated Diagnosis Comments ANATOMICAL PATH LIQUID BASED Routine 2018 4:48 PM CONTENT MANAGER from Last 3 Months or Most Recently Relevant to Health Maintenance Results * Pap Smear (2018 4:48 PM CONTENT MANAGER) 2018 4:48 PM CONTENT MANAGER Narrative PN SOFT - 08/30/2018 11:40 AM CONTENT MANAGER FINAL GYNECOLOGICAL CYTOLOGY REPORT Pathology #: [id number] ?Date Obtained: 2018 ? Date Received: 08/29/2018 INTERPRETATION/RESULTS: Negative for Intraepithelial Lesion or Malignancy. SPECIMEN ADEQUACY: Satisfactory for Evaluation. ??Endocervical cells/transformation zone component present. Verified on 08/30/2018 ??by LUCAS MEHTA(ASCP) (electronic signature) CLINICAL NOTES: ?Abnormal bleeding: No, LMP: 08/20/18, Menstrual status: None ?Apply, Current form of therapy: Hormone Therapy LIQUID BASED PAP SMEAR SPECIMEN TYPE: ?ROUTINE CERVICAL PAP TEST PLEASE NOTE: The pap smear is a screening test designed to aid in the detection of cervical cancer and its precursor lesions. It is not a diagnostic procedure and should not be used as the sole means of detecting cervical cancer. Both false-positive and false-negative reports may occur. Performed at [facility], [address] [place] [address] Genesis Hampton MD LAB_1 PN SOFT [address] [place] [address] from Last 3 Months or Most Recently Relevant to Health Maintenance Care Teams Training Director Relationship Specialty Start Date End Date Genesis Hampton MD [address] [place], [place] [address] PCP - General 05/08/12
[2024-01-18 14:06] LABS: Slide Review Reflex No
[2024-01-18 14:08] LABS: Chloride* 106 mmol/L (96-114)
[2024-01-18 14:09] LABS: Potassium* 3.8 mmol/L (3.6-5.1); Sodium* 140 mmol/L (135-149)
[2024-01-18 14:11] LABS: Creatinine* 0.5 mg/dL (0.5-1.5); Est. Creatinine Clearance* 148.04; Estimated Glomerular Filt Rate 129 ml/min
[2024-01-18 14:12] LABS: Anion Gap 9 mEq/L (7-15); Blood Urea Nitrogen* 11 mg/dL (5-24); Calcium* 9.4 mg/dL (8.4-10.6); Carbon Dioxide* 25 mmol/L (20-32); Glucose* 73 mg/dL (60-115)
[2024-01-18] MEDS: ACETAMINOPHEN 500 MG TABLET 1000 MG PO (15:26)
[2024-01-18 16:09] VITALS: BP 109/70; PULSE 79; RESP 16; TEMP 36.6; O2SAT 99
[2024-01-18 16:44] VITALS: BP 109/70; PULSE 79; RESP 16; TEMP 36.6; O2SAT 99
== END 2024-01-18 17:01 | disposition home or self-care (01) ==
PROVIDERS: Emergency Provider Family Medicine
DX: O20.0 Threatened abortion (principal); Z3A.01 Less than 8 weeks gestation of pregnancy
CPT/HCPCS: 36415; 36430; 76817; 80048; 84702; 85025; 86900; 86901; 93976; 99284; A9270; J2791; J7030

== ENCOUNTER 2024-01-20 08:32 | Outpatient (CLI) | payer OTHER, SELFPAY ==
--- OUTSIDE RECORDS SUMMARY | 2024-01-20 08:35 | XMS_ITS | Clinical Summary ---
Author Organization [facility] Address [address] [place] [address] Care Team Providers Care Market Basket Maker Name Role Phone Genesis Hampton MD Primary Care Provider Source Comments You are receiving this document as you are listed as the primary care provider,follow-up provider, or the patient has been referred to you for consultation.This is in compliance with the Medicare andSelect [facility] Hospital[facility]id EHR Incentive Program,which states Providers who transition their patient to another setting of careor provider of care or refers their patient to another provider of care shouldprovide summary care record for each transition of care or referral. [employer] Allergies Active Allergy Reactions Criticality Noted Date Comments Nitrofurantoin Hives High 2018 Other Hives High 2018 [place]-MCR; pt mom reported Medications Medication Sig Dispensed [...] Comments Blood Pressure 115/71 2018 4:11 PM PEER HEALTH PROMOTER Pulse 96 2018 4:11 PM PEER HEALTH PROMOTER Temperature 36.2 ??C (97.2 ??F) 09/21/2010 4 :22 PM PEER HEALTH PROMOTER ORAL C: 36.2 C Respiratory Rate - - Oxygen Saturation - - Inhaled Oxygen Concentration - - Weight 48.9 kg (107 lb 14.4 oz) 2018 4:11 PM PEER HEALTH PROMOTER Height 165.6 cm (5' 5.2) 2018 4: 11 PM PEER HEALTH PROMOTER Body Mass Index 17.85 2018 4:11 PM PEER HEALTH PROMOTER Plan of Treatment Health Maintenance Due Date [...] PATH LIQUID BASED Routine 2018 4:48 PM PEER HEALTH PROMOTER from Last 3 Months or Most Recently Relevant to Health Maintenance Results * Pap Smear (2018 4:48 PM PEER HEALTH PROMOTER) 2018 4:48 PM PEER HEALTH PROMOTER Narrative PN SOFT - 08/30/2018 11:40 AM PEER HEALTH PROMOTER FINAL GYNECOLOGICAL CYTOLOGY REPORT Pathology #: [id number] ?Date Obtained: 2018 ? Date Received: 08/29/2018 [...] and false-negative reports may occur. Performed at [facility], [address] [place] [address] Genesis Hampton MD LAB_1 PN SOFT [address] [place] [address] from Last 3 Months or Most Recently Relevant to Health Maintenance Care Teams Market Basket Maker Relationship Specialty Start Date End Date Genesis Hampton MD [address] [place], [place] [id number] PCP - General 05/08/12
== END 2024-01-20 08:33 | disposition home or self-care (01) ==
LOC: NFLDREF 08:33
PROVIDERS: Visit Provider Advanced Practice Midwife
DX: O20.9 Hemorrhage in early pregnancy, unspecified (principal)
CPT/HCPCS: 84702

== ENCOUNTER 2024-02-12 12:39 | Outpatient (CLI) | payer OTHER, SELFPAY ==
--- OUTSIDE RECORDS SUMMARY | 2024-02-12 12:41 | XMS_ITS | Clinical Summary ---
Author Organization [facility] Address [address] [place] [address] Care Team Providers Care Sr Technical Sales Consultant Name Role Phone Genesis Hampton MD Primary Care Provider Source Comments You are receiving this document as you are listed as the primary care provider,follow-up provider, or the patient has been referred to you for consultation.This is in compliance with the Medicare and[facility] Hospital[facility] EHR Incentive Program,which states Providers who transition their patient to another setting of careor provider of care or refers their patient to another provider of care shouldprovide summary care record for each transition of care or referral. [employer] Allergies Active Allergy Reactions Criticality Noted Date Comments Nitrofurantoin Hives High 2018 Other Hives High 2018 [place]-MCR; pt mom reported Medications Medication Sig Dispensed [...] Comments Blood Pressure 115/71 2018 4:11 PM POSTPARTUM NURSE Pulse 96 2018 4:11 PM POSTPARTUM NURSE Temperature 36.2 ??C (97.2 ??F) 09/21/2010 4 :22 PM POSTPARTUM NURSE ORAL C: 36.2 C Respiratory Rate - - Oxygen Saturation - - Inhaled Oxygen Concentration - - Weight 48.9 kg (107 lb 14.4 oz) 2018 4:11 PM POSTPARTUM NURSE Height 165.6 cm (5' 5.2) 2018 4: 11 PM POSTPARTUM NURSE Body Mass Index 17.85 2018 4:11 PM POSTPARTUM NURSE Plan of Treatment Health Maintenance Due Date Last Done Comments Hep C Screening (Preventive Services) 1993 IPV (Polio) (4 of 4 - 4-dose series) 1997 03/19/1994, 01/23/1994, 1993 HIV Screening (Preventive Services) 2009 Adult Preventive Visit 2020 9, 07/12/2017, 03/30/2016 Cervical Cancer Screening 08/28/20212018, 07/12/2017, 03/30/2016, Additional history exists COVID-19 Vaccine ( season) 2023 Influenza (#1) 2024 DTaP/Tdap/Td (6 - Tdap) 12/17/2024 12/18/19 [...] PATH LIQUID BASED Routine 2018 4:48 PM POSTPARTUM NURSE from Last 3 Months or Most Recently Relevant to Health Maintenance Results * Pap Smear (2018 4:48 PM POSTPARTUM NURSE) 2018 4:48 PM POSTPARTUM NURSE Narrative PN SOFT - 08/30/2018 11:40 AM POSTPARTUM NURSE FINAL GYNECOLOGICAL CYTOLOGY REPORT Pathology #: [id number] ?Date Obtained: 2018 ? Date Received: 08/29/2018 [...] and false-negative reports may occur. Performed at [facility], [address] [place] [address] Genesis Hampton MD LAB_1 PN SOFT [address] [place] [address] from Last 3 Months or Most Recently Relevant to Health Maintenance Care Teams Sr Technical Sales Consultant Relationship Specialty Start Date End Date Genesis Hampton MD [address] [place], [place] [id number] PCP - General 05/08/12
--- NOTE | 2024-02-12 13:00 | CRLHL7_ITS ---
For Patients: As a result of the Century Cures Act, medical imaging exams and procedure reports are released immediately into your electronic medical record. You may view this report before your referring provider. If you have questions, please contact your health care provider. INDICATION: follow up prior exam, dates off. (Gestation sac only) COMPARISON: 01/18/2024 TECHNIQUE: Real-time buckley-scale imaging of the pelvis was performed. FINDINGS: Intrauterine gestational sac is present with a mean sac diameter of 1.76 centimeters, 6 weeks 5 days. No pole. No yolk sac. Ovaries are normal in size. No pelvic free fluid. No subchorionic hemorrhage. IMPRESSION: Intrauterine gestational sac without pole or yolk sac. Dictated by Santosh Krishnan MD @ 02/14/2024 6:01:33 AM (Electronically Signed)
== END 2024-02-12 12:40 | disposition home or self-care (01) ==
LOC: US 12:40
PROVIDERS: Visit Provider Advanced Practice Midwife
DX: Z34.91 Encounter for supervision of normal pregnancy, unspecified, first trimester (principal); Z3A.01 Less than 8 weeks gestation of pregnancy
CPT/HCPCS: 76817

== ENCOUNTER 2024-02-26 14:28 | Outpatient (CLI) | payer OTHER, SELFPAY ==
--- OUTSIDE RECORDS SUMMARY | 2024-02-26 14:30 | XMS_ITS | Clinical Summary ---
Author Organization [facility] Address [address] [place] [address] Care Team Providers Care Graduate Rn Name Role Phone Genesis Hampton MD Primary Care Provider [phone] Source Comments You are receiving this document as you are listed as the primary care provider,follow-up provider, or the patient has been referred to you for consultation.This is in compliance with the Medicare and[facility] Hospitalcaid EHR Incentive Program,which states Providers who transition their patient to another setting of careor provider of care or refers their patient to another provider of care shouldprovide summary care record for each transition of care or referral. [employer] Allergies Active Allergy Reactions Criticality Noted Date Comments Nitrofurantoin Hives High 2018 Other Hives High 2018 [place]-MCR; pt mom reported Medications Medication Sig Dispensed [...] Comments Blood Pressure 115/71 2018 4:11 PM SHEET ROLLER OPERATOR Pulse 96 2018 4:11 PM SHEET ROLLER OPERATOR Temperature 36.2 ??C (97.2 ??F) 09/21/2010 4 :22 PM SHEET ROLLER OPERATOR ORAL C: 36.2 C Respiratory Rate - - Oxygen Saturation - - Inhaled Oxygen Concentration - - Weight 48.9 kg (107 lb 14.4 oz) 2018 4:11 PM SHEET ROLLER OPERATOR Height 165.6 cm (5' 5.2) 2018 4: 11 PM SHEET ROLLER OPERATOR Body Mass Index 17.85 2018 4:11 PM SHEET ROLLER OPERATOR Plan of Treatment Health Maintenance Due Date [...] PATH LIQUID BASED Routine 2018 4:48 PM SHEET ROLLER OPERATOR from Last 3 Months or Most Recently Relevant to Health Maintenance Results * Pap Smear (2018 4:48 PM SHEET ROLLER OPERATOR) 2018 4:48 PM SHEET ROLLER OPERATOR Narrative PN SOFT - 08/30/2018 11:40 AM SHEET ROLLER OPERATOR FINAL GYNECOLOGICAL CYTOLOGY REPORT Pathology #: [id number] ?Date Obtained: 2018 ? Date Received: 08/29/2018 [...] and false-negative reports may occur. Performed at [facility], [address] [place] [address] Genesis Hampton MD LAB_1 PN SOFT [address] [place] [address] from Last 3 Months or Most Recently Relevant to Health Maintenance Care Teams Graduate Rn Relationship Specialty Start Date End Date Genesis Hampton MD [address] [place], [place] [address] PCP - General 05/08/12
== END 2024-02-26 14:29 | disposition home or self-care (01) ==
PROVIDERS: Visit Provider Registered Nurse
DX: O03.9 Complete or unspecified spontaneous abortion without complication (principal); O02.0 Blighted ovum and nonhydatidiform mole
CPT/HCPCS: 76830; 84702

== ENCOUNTER 2024-03-11 07:50 | Outpatient (CLI) | payer OTHER, SELFPAY ==
--- OUTSIDE RECORDS SUMMARY | 2024-03-13 11:52 | XMS_ITS | Clinical Summary ---
Author Organization [facility] Address [address] [place] [address] Care Team Providers Care Core Paster Name Role Phone Genesis Hampton MD Primary Care Provider Source Comments You are receiving this document as you are listed as the primary care provider,follow-up provider, or the patient has been referred to you for consultation.This is in compliance with the Medicare andSelect [facility]oncaid EHR Incentive Program,which states Providers who transition their patient to another setting of careor provider of care or refers their patient to another provider of care shouldprovide summary care record for each transition of care or referral. [employer] Allergies Active Allergy Reactions Criticality Noted Date Comments Nitrofurantoin Hives High 2018 Other Hives High 2018 [place]-MCR; pt mom reported Medications Medication Sig Dispensed [...] Date Excessive or frequent menstruation 07/18/2009 07/12/2017 Overview (03/20/2017): Menorrhagia Immunizations Name Administration Dates Next Due [...] Comments Blood Pressure 115/71 2018 4:11 PM LOUNGE CAR ATTENDANT Pulse 96 2018 4:11 PM LOUNGE CAR ATTENDANT Temperature 36.2 ??C (97.2 ??F) 09/21/2010 4 :22 PM LOUNGE CAR ATTENDANT ORAL C: 36.2 C Respiratory Rate - - Oxygen Saturation - - Inhaled Oxygen Concentration - - Weight 48.9 kg (107 lb 14.4 oz) 2018 4:11 PM LOUNGE CAR ATTENDANT Height 165.6 cm (5' 5.2) 2018 4: 11 PM LOUNGE CAR ATTENDANT Body Mass Index 17.85 2018 4:11 PM LOUNGE CAR ATTENDANT Plan of Treatment Health Maintenance Due Date [...] PATH LIQUID BASED Routine 2018 4:48 PM LOUNGE CAR ATTENDANT from Last 3 Months or Most Recently Relevant to Health Maintenance Results * Pap Smear (2018 4:48 PM LOUNGE CAR ATTENDANT) 2018 4:48 PM LOUNGE CAR ATTENDANT Narrative PN SOFT - 08/30/2018 11:40 AM LOUNGE CAR ATTENDANT FINAL GYNECOLOGICAL CYTOLOGY REPORT Pathology #: [id number] ?Date Obtained: 2018 ? Date Received: 08/29/2018 [...] and false-negative reports may occur. Performed at [facility], [address] [place] [address] Genesis Hampton MD LAB_1 PN SOFT [address] [place], [place] [address] from Last 3 Months or Most Recently Relevant to Health Maintenance Care Teams Core Paster Relationship Specialty Start Date End Date Genesis Hampton MD [address] [place], [place] [address] PCP - General 05/08/12
== END 2024-03-11 07:51 | disposition home or self-care (01) ==
LOC: NFLDREF 03-13 11:49
PROVIDERS: Visit Provider Registered Nurse
DX: O02.0 Blighted ovum and nonhydatidiform mole (principal)
CPT/HCPCS: 84702

== ENCOUNTER 2024-03-18 09:26 | Outpatient (CLI) | payer OTHER, SELFPAY ==
--- OUTSIDE RECORDS SUMMARY | 2024-03-18 15:57 | XMS_ITS | Clinical Summary ---
[facility] Organization [facility] Address [address] [place] [address] Care Team Providers Care Photographic Machine Operator Name Role Phone Genesis Hampton MD Primary Care Provider Source Comments You are receiving this document as you are listed as the primary care provider,follow-up provider, or the patient has been referred to you for consultation.This is in compliance with the Medicare andAs[facility] Centercaid EHR Incentive Program,which states Providers who transition their patient to another setting of careor provider of care or refers their patient to another provider of care shouldprovide summary care record for each transition of care or referral. [employer] Allergies Active Allergy Reactions Criticality Noted Date Comments Nitrofurantoin Hives High 2018 Other Hives High 2018 [place]-MCR; pt mom reported Medications Medication Sig Dispensed [...] Comments Blood Pressure 115/71 2018 4:11 PM HAND ORNAMENT MAKER Pulse 96 2018 4:11 PM HAND ORNAMENT MAKER Temperature 36.2 ??C (97.2 ??F) 09/21/2010 4 :22 PM HAND ORNAMENT MAKER ORAL C: 36.2 C Respiratory Rate - - Oxygen Saturation - - Inhaled Oxygen Concentration - - Weight 48.9 kg (107 lb 14.4 oz) 2018 4:11 PM HAND ORNAMENT MAKER Height 165.6 cm (5' 5.2) 2018 4: 11 PM HAND ORNAMENT MAKER Body Mass Index 17.85 2018 4:11 PM HAND ORNAMENT MAKER Plan of Treatment Health Maintenance Due Date [...] PATH LIQUID BASED Routine 2018 4:48 PM HAND ORNAMENT MAKER from Last 3 Months or Most Recently Relevant to Health Maintenance Results * Pap Smear (2018 4:48 PM HAND ORNAMENT MAKER) 2018 4:48 PM HAND ORNAMENT MAKER Narrative PN SOFT - 08/30/2018 11:40 AM HAND ORNAMENT MAKER FINAL GYNECOLOGICAL CYTOLOGY REPORT Pathology #: [id number] ?Date Obtained: 2018 ? Date Received: 08/29/2018 [...] and false-negative reports may occur. Performed at [facility], [address] [place] [address] Genesis Hampton MD LAB_1 PN SOFT [address] [place], [place] [address] from Last 3 Months or Most Recently Relevant to Health Maintenance Care Teams Photographic Machine Operator Relationship Specialty Start Date End Date Genesis Hampton MD [address] [place], [place] [address] PCP - General 05/08/12
== END 2024-03-18 09:27 | disposition home or self-care (01) ==
LOC: NFLDREF 15:55
PROVIDERS: Visit Provider Registered Nurse
DX: O02.0 Blighted ovum and nonhydatidiform mole (principal)
CPT/HCPCS: 84702

== ENCOUNTER 2024-03-27 09:19 | Outpatient (CLI) | payer OTHER, SELFPAY ==
--- OUTSIDE RECORDS SUMMARY | 2024-03-27 13:53 | XMS_ITS | Clinical Summary ---
Author Organization [facility] Address [address] [place] [address] Care Team Providers Care Doctor Of Nurse Anesthesia Practice Name Role Phone Genesis Hampton MD Primary Care Provider Source Comments You are receiving this document as you are listed as the primary care provider,follow-up provider, or the patient has been referred to you for consultation.This is in compliance with the Medicare andMount Carm[facility] Health Systemcaid EHR Incentive Program,which states Providers who transition their patient to another setting of careor provider of care or refers their patient to another provider of care shouldprovide summary care record for each transition of care or referral. [employer] Allergies Active Allergy Reactions Criticality Noted Date Comments Nitrofurantoin Hives High 2018 Other Hives High 2018 [place]-MCR; pt mom reported Medications Medication Sig Dispensed [...] Comments Blood Pressure 115/71 2018 4:11 PM DECK MOLDER Pulse 96 2018 4:11 PM DECK MOLDER Temperature 36.2 ??C (97.2 ??F) 09/21/2010 4 :22 PM DECK MOLDER ORAL C: 36.2 C Respiratory Rate - - Oxygen Saturation - - Inhaled Oxygen Concentration - - Weight 48.9 kg (107 lb 14.4 oz) 2018 4:11 PM DECK MOLDER Height 165.6 cm (5' 5.2) 2018 4: 11 PM DECK MOLDER Body Mass Index 17.85 2018 4:11 PM DECK MOLDER Plan of Treatment Health Maintenance Due Date [...] PATH LIQUID BASED Routine 2018 4:48 PM DECK MOLDER from Last 3 Months or Most Recently Relevant to Health Maintenance Results * Pap Smear (2018 4:48 PM DECK MOLDER) 2018 4:48 PM DECK MOLDER Narrative PN SOFT - 08/30/2018 11:40 AM DECK MOLDER FINAL GYNECOLOGICAL CYTOLOGY REPORT Pathology #: [id number] ?Date Obtained: 2018 ? Date Received: 08/29/2018 [...] and false-negative reports may occur. Performed at [facility], [address] [place] [address] Genesis Hampton MD LAB_1 PN SOFT [address] [place], [place] [address] from Last 3 Months or Most Recently Relevant to Health Maintenance Care Teams Doctor Of Nurse Anesthesia Practice Relationship Specialty Start Date End Date Genesis Hampton MD [address] [place], [place] [phone] PCP - General 05/08/12
== END 2024-03-27 09:20 | disposition home or self-care (01) ==
LOC: NFLDREF 13:51
PROVIDERS: Visit Provider Registered Nurse
DX: O02.0 Blighted ovum and nonhydatidiform mole (principal)
CPT/HCPCS: 84702

== ENCOUNTER 2024-04-01 07:58 | Outpatient (CLI) | payer OTHER, SELFPAY ==
--- OUTSIDE RECORDS SUMMARY | 2024-04-05 11:26 | XMS_ITS | Clinical Summary ---
Author Organization [facility] Address [address] [place] [address] Care Team Providers Care Noodle Maker Name Role Phone Genesis Hampton MD Primary Care Provider Source Comments You are receiving this document as you are listed as the primary care provider,follow-up provider, or the patient has been referred to you for consultation.This is in compliance with the Medicare and[facility] Hospitalcaid EHR Incentive Program,which states Providers who transition their patient to another setting of careor provider of care or refers their patient to another provider of care shouldprovide summary care record for each transition of care or referral. [employer] Allergies Active Allergy Reactions Criticality Noted Date Comments Nitrofurantoin Hives High 2018 Other Hives High 2018 [place]-MCR; pt mom reported Medications Medication Sig Dispensed [...] Comments Blood Pressure 115/71 2018 4:11 PM DECORATING MACHINE OPERATOR Pulse 96 2018 4:11 PM DECORATING MACHINE OPERATOR Temperature 36.2 ??C (97.2 ??F) 09/21/2010 4 :22 PM DECORATING MACHINE OPERATOR ORAL C: 36.2 C Respiratory Rate - - Oxygen Saturation - - Inhaled Oxygen Concentration - - Weight 48.9 kg (107 lb 14.4 oz) 2018 4:11 PM DECORATING MACHINE OPERATOR Height 165.6 cm (5' 5.2) 2018 4: 11 PM DECORATING MACHINE OPERATOR Body Mass Index 17.85 2018 4:11 PM DECORATING MACHINE OPERATOR Plan of Treatment Health Maintenance Due Date Last Done Comments Hep C Screening (Preventive Services) 1993 IPV (Polio) (4 of 4 - 4-dose series) 1997 03/19/1994, 01/23/1994, 1993 HIV Screening (Preventive Services) 2009 Adult Preventive Visit 2020 9, 07/12/2017, 03/30/2016 Cervical Cancer Screening 08/28/20212018, 07/12/2017, 03/30/2016, Additional history exists COVID-19 Vaccine ( season) 2024 Influenza (#1) 2024 DTaP/Tdap/Td (6 - Tdap) [...] PATH LIQUID BASED Routine 2018 4:48 PM DECORATING MACHINE OPERATOR from Last 3 Months or Most Recently Relevant to Health Maintenance Results * Pap Smear (2018 4:48 PM DECORATING MACHINE OPERATOR) 2018 4:48 PM DECORATING MACHINE OPERATOR Narrative PN SOFT - 08/30/2018 11:40 AM DECORATING MACHINE OPERATOR FINAL GYNECOLOGICAL CYTOLOGY REPORT Pathology #: [id number] ?Date Obtained: 2018 ? Date Received: 08/29/2018 [...] [facility], [address] [place] [address] Genesis Hampton MD LAB_1 PN SOFT [address] [place], [place] [address] from Last 3 Months or Most Recently Relevant to Health Maintenance Care Teams Noodle Maker Relationship Specialty Start Date End Date Genesis Hampton MD [address] [place], [place] [address] PCP - General 05/08/12
== END 2024-04-01 07:59 | disposition home or self-care (01) ==
LOC: NFLDREF 04-05 11:24
PROVIDERS: Visit Provider Registered Nurse
DX: O02.0 Blighted ovum and nonhydatidiform mole (principal)
CPT/HCPCS: 84702

== ENCOUNTER 2024-04-08 07:57 | Outpatient (CLI) | payer OTHER, SELFPAY ==
--- OUTSIDE RECORDS SUMMARY | 2024-04-11 19:46 | XMS_ITS | Clinical Summary ---
Author Organization [facility] Address [address] [place] [address] Care Team Providers Care Canine Enforcement Officer Name Role Phone Genesis Hampton MD Primary Care Provider [phone] Source Comments You are receiving this document as you are listed as the primary care provider,follow-up provider, or the patient has been referred to you for consultation.This is in compliance with the Medicare and[facility] Cent[facility]aid EHR Incentive Program,which states Providers who transition their patient to another setting of careor provider of care or refers their patient to another provider of care shouldprovide summary care record for each transition of care or referral. GLO Allergies Active Allergy Reactions Criticality Noted Date Comments Nitrofurantoin Hives High 2018 Other Hives High 2018 [place]-MCR; pt mom reported Medications Medication Sig Dispensed [...] Comments Blood Pressure 115/71 2018 4:11 PM LION TRAINER Pulse 96 2018 4:11 PM LION TRAINER Temperature 36.2 ??C (97.2 ??F) 09/21/2010 4 :22 PM LION TRAINER ORAL C: 36.2 C Respiratory Rate - - Oxygen Saturation - - Inhaled Oxygen Concentration - - Weight 48.9 kg (107 lb 14.4 oz) 2018 4:11 PM LION TRAINER Height 165.6 cm (5' 5.2) 2018 4: 11 PM LION TRAINER Body Mass Index 17.85 2018 4:11 PM LION TRAINER Plan of Treatment Health Maintenance Due Date [...] PATH LIQUID BASED Routine 2018 4:48 PM LION TRAINER from Last 3 Months or Most Recently Relevant to Health Maintenance Results * Pap Smear (2018 4:48 PM LION TRAINER) 2018 4:48 PM LION TRAINER Narrative PN SOFT - 08/30/2018 11:40 AM LION TRAINER FINAL GYNECOLOGICAL CYTOLOGY REPORT Pathology #: [id number] ?Date Obtained: 2018 ? Date Received: 08/29/2018 [...] and false-negative reports may occur. Performed at [facility], [address] [place] [address] Genesis Hampton MD LAB_1 PN SOFT [address] [place], [place] [address] from Last 3 Months or Most Recently Relevant to Health Maintenance Care Teams Canine Enforcement Officer Relationship Specialty Start Date End Date Genesis Hampton MD [address] [place], [place] [id number] PCP - General 05/08/12
== END 2024-04-08 07:58 | disposition home or self-care (01) ==
LOC: NFLDREF 04-11 19:45
PROVIDERS: Visit Provider Registered Nurse
DX: O02.0 Blighted ovum and nonhydatidiform mole (principal)
CPT/HCPCS: 84702

== ENCOUNTER 2024-04-24 08:29 | Outpatient (CLI) | payer OTHER, SELFPAY ==
--- OUTSIDE RECORDS SUMMARY | 2024-04-24 11:50 | XMS_ITS | Clinical Summary ---
[facility] Organization [facility] Address [address] [place] [address] Care Team Providers Care Hospice Entrance Attendant Name Role Phone Genesis Hampton MD Primary Care Provider Source Comments You are receiving this document as you are listed as the primary care provider,follow-up provider, or the patient has been referred to you for consultation.This is in compliance with the Medicare and[facility] Hospital[facility]id EHR Incentive Program,which states Providers who transition their patient to another setting of careor provider of care or refers their patient to another provider of care shouldprovide summary care record for each transition of care or referral. [employer] Allergies Active Allergy Reactions Criticality Noted Date Comments Nitrofurantoin Hives High 2018 Other Hives High 2018 [place]-MCR; pt mom reported Medications Medication Sig Dispensed [...] Comments Blood Pressure 115/71 2018 4:11 PM EMPLOYEE RELATIONS ASSISTANT Pulse 96 2018 4:11 PM EMPLOYEE RELATIONS ASSISTANT Temperature 36.2 ??C (97.2 ??F) 09/21/2010 4 :22 PM EMPLOYEE RELATIONS ASSISTANT ORAL C: 36.2 C Respiratory Rate - - Oxygen Saturation - - Inhaled Oxygen Concentration - - Weight 48.9 kg (107 lb 14.4 oz) 2018 4:11 PM EMPLOYEE RELATIONS ASSISTANT Height 165.6 cm (5' 5.2) 2018 4: 11 PM EMPLOYEE RELATIONS ASSISTANT Body Mass Index 17.85 2018 4:11 PM EMPLOYEE RELATIONS ASSISTANT Plan of Treatment Health Maintenance Due Date [...] PATH LIQUID BASED Routine 2018 4:48 PM EMPLOYEE RELATIONS ASSISTANT from Last 3 Months or Most Recently Relevant to Health Maintenance Results * Pap Smear (2018 4:48 PM EMPLOYEE RELATIONS ASSISTANT) 2018 4:48 PM EMPLOYEE RELATIONS ASSISTANT Narrative PN SOFT - 08/30/2018 11:40 AM EMPLOYEE RELATIONS ASSISTANT FINAL GYNECOLOGICAL CYTOLOGY REPORT Pathology #: [id number] ?Date Obtained: 2018 ? Date Received: 08/29/2018 [...] and false-negative reports may occur. Performed at [facility], [address] [place] [address] Genesis Hampton MD LAB_1 PN SOFT [address] [place], [place] [address] from Last 3 Months or Most Recently Relevant to Health Maintenance Care Teams Hospice Entrance Attendant Relationship Specialty Start Date End Date Genesis Hampton MD [address] [place], [place] [phone] PCP - General 05/08/12
== END 2024-04-24 08:30 | disposition home or self-care (01) ==
LOC: NFLDREF 11:49
PROVIDERS: Visit Provider Registered Nurse
DX: O02.0 Blighted ovum and nonhydatidiform mole (principal)
CPT/HCPCS: 84702

== ENCOUNTER 2024-05-04 09:10 | Outpatient (CLI) | payer OTHER, SELFPAY ==
--- OUTSIDE RECORDS SUMMARY | 2024-05-06 12:06 | XMS_ITS | Clinical Summary ---
[facility] Organization [facility] Address [address] [place] [address] Care Team Providers Care Database Dba Name Role Phone Genesis Hampton MD Primary Care Provider Source Comments You are receiving this document as you are listed as the primary care provider,follow-up provider, or the patient has been referred to you for consultation.This is in compliance with the Medicare and[facility] Hospitalcaid EHR Incentive Program,which states Providers who transition their patient to another setting of careor provider of care or refers their patient to another provider of care shouldprovide summary care record for each transition of care or referral. [employer] Allergies Active Allergy Reactions Criticality Noted Date Comments Nitrofurantoin Hives High 2018 Other Hives High 2018 [place]-MCR; pt mom reported Medications Medication Sig Dispensed [...] Comments Blood Pressure 115/71 2018 4:11 PM PARKING TECHNICIAN Pulse 96 2018 4:11 PM PARKING TECHNICIAN Temperature 36.2 ??C (97.2 ??F) 09/21/2010 4 :22 PM PARKING TECHNICIAN ORAL C: 36.2 C Respiratory Rate - - Oxygen Saturation - - Inhaled Oxygen Concentration - - Weight 48.9 kg (107 lb 14.4 oz) 2018 4:11 PM PARKING TECHNICIAN Height 165.6 cm (5' 5.2) 2018 4: 11 PM PARKING TECHNICIAN Body Mass Index 17.85 2018 4:11 PM PARKING TECHNICIAN Plan of Treatment Health Maintenance Due Date [...] on patient's age to complete this topic RSV Aged Out No longer eligi ble based on patient's age to complete this topic MCV4 Aged Out No longer eligi ble based on patient's age to complete this topic Pneumococcal Aged Out No longer eligi ble based on patient's age to complete this topic Procedures Procedure Name Priority Date/Time Associated Diagnosis Comments ANATOMICAL PATH LIQUID BASED Routine 2018 4:48 PM PARKING TECHNICIAN from Last 3 Months or Most Recently Relevant to Health Maintenance Results * Pap Smear (2018 4:48 PM PARKING TECHNICIAN) 2018 4:48 PM PARKING TECHNICIAN Narrative PN SOFT - 08/30/2018 11:40 AM PARKING TECHNICIAN FINAL GYNECOLOGICAL CYTOLOGY REPORT Pathology #: [id number] ?Date Obtained: 2018 ? Date Received: 08/29/2018 [...] and false-negative reports may occur. Performed at [address] [address] Genesis Hampton MD LAB_1 PN SOFT [address] [place] [phone] from Last 3 Months or Most Recently Relevant to Health Maintenance Care Teams Database Dba Relationship Specialty Start Date End Date Genesis Hampton MD [address] [place] [address] PCP - General 05/08/12
== END 2024-05-04 09:11 | disposition home or self-care (01) ==
LOC: NFLDREF 05-06 12:04
PROVIDERS: Visit Provider Registered Nurse
DX: O02.0 Blighted ovum and nonhydatidiform mole (principal)
CPT/HCPCS: 84702

== ENCOUNTER 2024-05-13 08:00 | Outpatient (CLI) | payer OTHER, SELFPAY ==
--- OUTSIDE RECORDS SUMMARY | 2024-05-13 12:24 | XMS_ITS | Clinical Summary ---
Author Organization [facility] Address [address] [place] [address] Care Team Providers Care Chemist Intern Name Role Phone Genesis Hampton MD Primary Care Provider [phone] Source Comments You are receiving this document as you are listed as the primary care provider,follow-up provider, or the patient has been referred to you for consultation.This is in compliance with the Medicare and[facility] Hospitalcaid EHR Incentive Program,which states Providers who transition their patient to another setting of careor provider of care or refers their patient to another provider of care shouldprovide summary care record for each transition of care or referral. [employer] Allergies Active Allergy Reactions Criticality Noted Date Comments Nitrofurantoin Hives High 2018 Other Hives High 2018 [place]-MCR; pt mom reported Medications Medication Sig Dispensed [...] Comments Blood Pressure 115/71 2018 4:11 PM CYBER INCIDENT RESPONDER Pulse 96 2018 4:11 PM CYBER INCIDENT RESPONDER Temperature 36.2 ??C (97.2 ??F) 09/21/2010 4 :22 PM CYBER INCIDENT RESPONDER ORAL C: 36.2 C Respiratory Rate - - Oxygen Saturation - - Inhaled Oxygen Concentration - - Weight 48.9 kg (107 lb 14.4 oz) 2018 4:11 PM CYBER INCIDENT RESPONDER Height 165.6 cm (5' 5.2) 2018 4: 11 PM CYBER INCIDENT RESPONDER Body Mass Index 17.85 2018 4:11 PM CYBER INCIDENT RESPONDER Plan of Treatment Health Maintenance Due Date [...] on patient's age to complete this topic Infant RSV Aged Out No longer eligi ble based on patient's age to complete this topic MCV4 Aged Out No longer eligi ble based on patient's age to complete this topic Pneumococcal Aged Out No longer eligi ble based on patient's age to complete this topic Procedures Procedure Name Priority Date/Time Associated Diagnosis Comments ANATOMICAL PATH LIQUID BASED Routine 2018 4:48 PM CYBER INCIDENT RESPONDER from Last 3 Months or Most Recently Relevant to Health Maintenance Results * Pap Smear (2018 4:48 PM CYBER INCIDENT RESPONDER) 2018 4:48 PM CYBER INCIDENT RESPONDER Narrative PN SOFT - 08/30/2018 11:40 AM CYBER INCIDENT RESPONDER FINAL GYNECOLOGICAL CYTOLOGY REPORT Pathology #: [id number] ?Date Obtained: 2018 ? Date Received: 08/29/2018 [...] and false-negative reports may occur. Performed at [address] [address] Genesis Hampton MD LAB_1 PN SOFT [address] [place] [phone] from Last 3 Months or Most Recently Relevant to Health Maintenance Care Teams Chemist Intern Relationship Specialty Start Date End Date Genesis Hampton MD [address] [address] PCP - General 05/08/12
== END 2024-05-13 08:01 | disposition home or self-care (01) ==
LOC: NFLDREF 12:23
PROVIDERS: Visit Provider Registered Nurse
DX: O03.9 Complete or unspecified spontaneous abortion without complication (principal)
CPT/HCPCS: 84702

== ENCOUNTER 2024-05-28 11:54 | Day surgery (SDC) | payer OTHER, SELFPAY ==
[2024-05-28 11:58] VITALS: BP 106/60; PULSE 77; RESP 20; TEMP 37; O2SAT 97
--- NOTE | 2024-05-28 12:17 | ED.FEMALEGU ---
HPI - Female Genitourinary General Chief complaint: Vaginal Bleeding Stated complaint: heavy vaginal bleeding Time Seen by Provider: 05/28/24 11:59 History of Present Illness HPI Narrative: This 28-year-old female comes in with her reporting large amount of vaginal bleeding starting today. She states that she has gone through 4 pads in the past few hours. She also has abdominal cramping. She did have an anembryonic and at about 12 weeks she was taking medication to help clear her uterus. She has been doing well but comes in today with these symptoms. She does report some lightheadedness but arrives with reassuring vital signs. She denies any possibility of . Related Data Home Medications ?Medication ?Instructions ?Recorded ?Confirmed prenat.vits,guru,[id number] 1 tab PO QDAY 01/26/22 02/26/24 Previous Rx's ?Medication ?Instructions ?Recorded acetaminophen 300 mg-codeine 15 mg 2 tab PO BID PRN pain #5 tabs 02/26/24 tablet misoprostol 200 mcg tablet 800 mcg (4 x 200 mcg) vaginal ONCE 02/26/24 #4 tabs Allergies Allergy/AdvReac Type Severity Reaction Status Date / Time mold Allergy Verified 02/26/24 10:35 nitrofurantoin Allergy eye Verified 02/26/24 10:35 swelling Penicillins Allergy Anaphylaxis Verified 05/28/24 12:06 Other Blue Cheese Allergy Intermediate Hives Uncoded 02/26/24 10:35 Review of Systems Status of ROS: Reports: 10 or more systems reviewed and unremarkable except as noted in History and below Narrative: Constitutional: No fevers, no weight gain or loss. Eyes: No discharge. No vision changes. HENT: No congestion, no sore throat, no ear pain. Cardiovascular: No chest pain, no palpitations. Respiratory: No shortness of breath, no wheezes, no cough. Gastrointestinal: No vomiting, no diarrhea. Abdominal cramping. Genitourinary: No dysuria, no hematuria. Vaginal bleeding as described above. Musculoskeletal: Normal range of motion. Skin: No rashes, no pruritis. Neurological: No dizziness, weakness, sensory change, speech change. Endo/Heme/Allergies: No bruising or bleeding. No polydipsia. Pysch: no suicidality, no anxiety, no insomnia. All other systems reviewed and are negative. [facility] Medical History Anemia due to acute blood loss ?D62 - Acute posthemorrhagic anemia (ICD-10) Gestational hypertension ?O13.9 - Gestational [-induced] hypertension without significant proteinuria, unspecified trimester (ICD-10) anxiety ?O99.345 - Other mental disorders complicating the puerperium (ICD-10) ?F41.8 - Other specified anxiety disorders (ICD-10) (normal spontaneous vaginal delivery) ?O80 - Encounter for full-term uncomplicated delivery (ICD-10) Restless leg syndrome in ?O99.350 - Diseases of the nervous system complicating , unspecified trimester (ICD-10) ?G25.81 - Restless legs syndrome (ICD-10) Megacolon ?K59.39 - Other megacolon (ICD-10) Surgical History History of facial surgery ?Z98.890 - Other specified postprocedural states (ICD-10) 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 HEENT: Normocephalic, atraumatic. Neck: Normal range of motion. Nontender. Supple. Heart: Regular. No murmurs. Normal rate. Intact distal pulses. Lungs: Clear to auscultation. No chest discomfort. No wheezes, rhonchi, or rales. Abdomen: Normal bowel sounds. Crampy lower abdominal pain. No rebound tenderness. Genitalia: Deferred. Back: No midline tenderness. Normal range of motion. Extremities: Normal range of motion. No injury. Skin: Intact. No rash. Warm. No erythema or pallor. Neurologic: No altered sensation. No weakness. Alert and oriented. Psychiatric: No suicidality. No anxiety or depression. No insomnia. Nursing notes and vitals signs are reviewed. Const: Vital Signs, click to edit/add: Vital Signs - 24 hr 05/28/24 11:58 05/28/24 13:43 Temperature 98.6 F Pulse Rate [Pulse Oximeter] 77 79 Respiratory Rate 20 Blood Pressure [Ri ght Upper Arm] 106/60 Pulse Oximetry 97 100 Oxygen Delivery Me thod Room Air Room Air Course Vital Signs Vital signs: Initial Vital Signs Temperature 98.6 F 05/28/24 11:58 Temperature Source Temporal Artery Scan 05/28/24 11:58 Pulse Rate 77 05/28/24 11:58 Respiratory Rate 20 05/28/24 11:58 Blood Pressure 106/60 05/28/24 11:58 Blood Pressure Mean 75 05/28/24 11:58 Blood Pressure Position High-Fowlers 05/28/24 11:58 Pulse Oximetry 97 05/28/24 11:58 Oxygen Delivery Method Room Air 05/28/24 11:58 Vital Signs Temperature 98.6 F 05/28/24 11:58 Pulse Rate 77 05/28/24 11:58 Respiratory Rate 20 05/28/24 11:58 Blood Pressure 106/60 05/28/24 11:58 Pulse Oximetry 97 05/28/24 11:58 Oxygen Delivery Method Room Air 05/28/24 11:58 Temperature 98.6 F 05/28/24 11:58 Pulse Rate 79 05/28/24 13:43 Respiratory Rate 20 05/28/24 11:58 Blood Pressure 106/60 05/28/24 11:58 Pulse Oximetry 100 05/28/24 13:43 Oxygen Delivery Method Room Air 05/28/24 13:43 Medications Administered Medications: Discontinued Medications Generic Name Dose Route Start Last Admin Trade Name Freq PRN Reason Stop Dose Admin Sodium Chloride 500 mls @ 500 mls/hr 05/28/24 12:16 05/28/24 13:15 0.9 % Sodium Chloride 500 Ml IV 05/28/24 13:15 Infused .Q1H ONE Infusion MDM - Female Genitourinary MDM Narrative Medical decision making narrative: This patient comes in reporting significant vaginal bleeding that happened this morning. She arrives with reassuring vital signs. An IV is established and labs are acquired. The patient did receive 500 mL of normal saline intravenously. She is maintaining sufficient vital signs but does have ongoing bleeding. Ultrasound is obtained and does show findings suspicious for retained products of conception. The pain and would benefit from a D&C and was told this earlier but was hoping that she could avoid that procedure by using medical management of her blighted ovum. I did speak with Dr. Dukes regarding these matters and arrangements are made for the patient be taken to the OR today for a D&C. Lab Data Labs: Lab Results 05/28/24 Range/Units 12:26 WBC 9.87 (4.50-11.00) K/uL RBC 4.49 (4.00-5.20) m/uL Hgb 13.7 (12.0-16.0) gm/dL Hct 39.8 (33.0-51.0) % MCV 89 (80-100) fL MCH 31 (26-34) pg MCHC 34 (32-36) gm/dL RDW Coeff of Doreen 12.5 (11.5-15.5) % Plt Count 205 (140-440) K/uL Neut % (Auto) 72.8 H (42.0-72.0) % Lymph % (Auto) 21.2 (20-44) % Sargent % (Auto) 5.1 (0.0-11.0) % Eos % (Auto) 0.6 (0.0-7.0) % Baso % (Auto) 0.2 (0.0-3.0) % Neut # (Auto) 7.20 H (1.7-7.0) K/uL Lymph # (Auto) 2.09 (0.90-2.90) K/uL Sargent # (Auto) 0.50 (0.00-0.90) K/UL Eos # (Auto) 0.06 (0.00-0.50) K/uL Baso # (Auto) 0.02 (0.00-0.30) K/uL Abs Immat Gran (auto) 0.01 (0.00-0.30) K/uL Imm/Tot Granulo (auto) 0.1 % Sodium 136 (135-149) mmol/L Potassium 3.7 (3.6-5.1) mmol/L Chloride 103 (96-114) mmol/L Carbon Dioxide 21 (20-32) mmol/L Anion Gap 12 (7-15) mEq/L BUN 8 (5-24) mg/dL Creatinine 0.5 (0.5-1.5) mg/dL Estimated Creat Clear 141.37 Estimated GFR 129 ml/min Glucose 86 (60-115) mg/dL Calcium 9.4 (8.4-10.6) mg/dL HCG, Qual Positive (Negative) Imaging Data US - abdomen: Radiologist's impression: Heterogeneous echogenicity of the endometrial stripe which is markedly thickened measuring up to 2 centimeters and demonstrates prominent vascularity. Findings are highly concerning for retained products of conception. Discharge Plan Discharge Clinical Impression: Vaginal bleeding, Incomplete Prescriptions: No Action prenat.vits,guru,[id number]-[id number] Tablet 1 tab PO QDAY misoprostol 200 mcg tablet 800 mcg vaginal ONCE Qty: 4 0RF acetaminophen-codeine 300-15 mg tablet 2 tab PO BID PRN (Reason: pain) Qty: 5 0RF Follow Up/Referrals: Provider,Not a Local [Primary Care Provider] -
[2024-05-28] MEDS: 0.9 % SODIUM CHLORIDE 500 ML 500 ML IV (12:20)
--- NOTE | 2024-05-28 12:20 | CRLHL7_ITS ---
For Patients: As a result of the Century Cures Act, medical imaging exams and procedure reports are released immediately into your electronic medical record. You may view this report before your referring provider. If you have questions, please contact your health care provider. INDICATION: Vaginal bleeding after miscarriage COMPARISON: 02/26/2024 pelvic ultrasound TECHNIQUE: Sonographic evaluation of the pelvis was performed utilizing buckley-scale and color Doppler imaging techniques. Transvaginal images were obtained to improve assessment of the adnexa and endometrium. FINDINGS: The uterus is anteverted. The uterus measures 9.2 x 5 x 5.4 centimeters. The endometrial stripe measures 20 mm. Heterogeneous echogenicity (with multiple isoechoic, hypoechoic, and hyperechoic regions) of the endometrial stripe with prominent vascularity. The right ovary measures 3.8 x 2.2 x 2.6 cm. No suspicious right ovarian mass is identified. The left ovary measures 4.5 x 2.4 x 3.4 cm. No suspicious left ovarian mass is identified. Trace pelvic free fluid. IMPRESSION: Heterogeneous echogenicity of the endometrial stripe which is markedly thickened measuring up to 2 centimeters and demonstrates prominent vascularity. Findings are highly concerning for retained products of conception. Dictated by Alvin Montez MD @ 05/28/2024 1:32:19 PM (Electronically Signed)
[2024-05-28 12:33] LABS: Basophils Absolute Auto 0.02 K/uL (0.00-0.30); Basophils Percent Auto 0.2 % (0.0-3.0); Eosinophils Absolute Auto 0.06 K/uL (0.00-0.50); Eosinophils Percent Auto 0.6 % (0.0-7.0); Hematocrit 39.8 % (33.0-51.0); Hemoglobin* 13.7 gm/dL (12.0-16.0); Immature Granulocytes Abs Auto 0.01 K/uL (0.00-0.30); Immature Granulocytes Pct Auto 0.1 %; Lymphocytes Absolute Auto 2.09 K/uL (0.90-2.90); Lymphocytes Percent Auto 21.2 % (20-44); Mean Corpuscular HGB Conc 34 gm/dL (32-36); Mean Corpuscular Hemoglobin 31 pg (26-34); Mean Corpuscular Volume 89 fL (80-100); Monocytes Percent Auto 5.1 % (0.0-11.0); Neutrophils Percent Auto 72.8 % (42.0-72.0); Platelet Count* 205 K/uL (140-440); RDW Coefficient of Variation % 12.5 % (11.5-15.5); Red Blood Count 4.49 m/uL (4.00-5.20); White Blood Count* 9.87 K/uL (4.50-11.00)
[2024-05-28 12:36] LABS: Slide Review Reflex No
[2024-05-28 12:52] LABS: Chloride* 103 mmol/L (96-114); Potassium* 3.7 mmol/L (3.6-5.1); Sodium* 136 mmol/L (135-149)
[2024-05-28 12:54] LABS: Creatinine* 0.5 mg/dL (0.5-1.5); Est. Creatinine Clearance* 141.37; Estimated Glomerular Filt Rate 129 ml/min
[2024-05-28 12:55] LABS: Anion Gap 12 mEq/L (7-15); Blood Urea Nitrogen* 8 mg/dL (5-24); Calcium* 9.4 mg/dL (8.4-10.6); Carbon Dioxide* 21 mmol/L (20-32); Glucose* 86 mg/dL (60-115)
[2024-05-28 13:11] LABS: HCG Qualitative Serum* Positive (Negative)
--- OUTSIDE RECORDS SUMMARY | 2024-05-28 13:17 | XMS_ITS | Clinical Summary ---
Author Organization [facility] Address [address] [place] [address] Care Team Providers Care Mud Mixer Name Role Phone Genesis Hampton MD Primary Care Provider [phone] Source Comments You are receiving this document as you are listed as the primary care provider,follow-up provider, or the patient has been referred to you for consultation.This is in compliance with the Medicare and[facility] EHR Incentive Program,which states Providers who transition their patient to another setting of careor provider of care or refers their patient to another provider of care shouldprovide summary care record for each transition of care or referral. [employer] Allergies Active Allergy Reactions Criticality Noted Date Comments Nitrofurantoin Hives High 2018 Other Hives High 2018 [place]-MCR; pt mom reported Medications Medication Sig Dispensed [...] Comments Blood Pressure 115/71 2018 4:11 PM DEVELOPMENT PROFESSIONAL Pulse 96 2018 4:11 PM DEVELOPMENT PROFESSIONAL Temperature 36.2 ??C (97.2 ??F) 09/21/2010 4 :22 PM DEVELOPMENT PROFESSIONAL ORAL C: 36.2 C Respiratory Rate - - Oxygen Saturation - - Inhaled Oxygen Concentration - - Weight 48.9 kg (107 lb 14.4 oz) 2018 4:11 PM DEVELOPMENT PROFESSIONAL Height 165.6 cm (5' 5.2) 2018 4: 11 PM DEVELOPMENT PROFESSIONAL Body Mass Index 17.85 2018 4:11 PM DEVELOPMENT PROFESSIONAL Plan of Treatment Health Maintenance Due Date [...] PATH LIQUID BASED Routine 2018 4:48 PM DEVELOPMENT PROFESSIONAL from Last 3 Months or Most Recently Relevant to Health Maintenance Results * Pap Smear (2018 4:48 PM DEVELOPMENT PROFESSIONAL) 2018 4:48 PM DEVELOPMENT PROFESSIONAL Narrative PN SOFT - 08/30/2018 11:40 AM DEVELOPMENT PROFESSIONAL FINAL GYNECOLOGICAL CYTOLOGY REPORT Pathology #: [id number] ?Date Obtained: 2018 ? Date Received: 08/29/2018 [...] and false-negative reports may occur. Performed at [address] [address] Genesis Hampton MD LAB_1 PN SOFT [address] [place] [phone] from Last 3 Months or Most Recently Relevant to Health Maintenance Care Teams Mud Mixer Relationship Specialty Start Date End Date Genesis Hampton MD [address] [place] [address] PCP - General 05/08/12
[2024-05-28 13:43] VITALS: PULSE 79; O2SAT 100
--- NOTE | 2024-05-28 13:57 | PM.GYNCN1 ---
BUTTON BUTTONHOLE MARKER - CN: HPI Data of Consult Time Seen by Provider: 13:57 Date Seen: 05/28/24 Patient: [facility] Patient Primary Care Provider: Not a Local Provider Consult Narrative Narrative: Renetta Trujillo is a 28 year old female with an anembryonic in January 2024. She opted for expectant management but did not pass the after 2 months. She opted for medical management with mifepristone and misoprostol on 04/30/24. Reported that within the 10 hours she had heavy bleeding/cramping with passage of clots. It resolved after 24 hours. She thought she passed everything at that point and was recovering well. She had down trending beta HCG. However, today, she started having heavy menstrual bleeding with clots, soaking through 4 pad in approximately 3-4 hours so she presented to the ED. Patient denies fever, chills, chest pain, SOB, n/v, headache, or dizziness. Denies hematuria or dysuria. Workup thus far: - Hgb/plt: 13.7/205 - UPT + - Pelvic US today: FINDINGS: The uterus is anteverted. The uterus measures 9.2 x 5 x 5.4 centimeters. The endometrial stripe measures 20 mm. Heterogeneous echogenicity (with multiple isoechoic, hypoechoic, and hyperechoic regions) of the endometrial stripe with prominent vascularity. The right ovary measures 3.8 x 2.2 x 2.6 cm. No suspicious right ovarian mass is identified. The left ovary measures 4.5 x 2.4 x 3.4 cm. No suspicious left ovarian mass is identified. Trace pelvic free fluid. IMPRESSION: Heterogeneous echogenicity of the endometrial stripe which is markedly thickened measuring up to 2 centimeters and demonstrates prominent vascularity. Findings are highly concerning for retained products of conception. cc:: CC: Review of Systems Status of ROS: Reports: 10 or more systems reviewed and unremarkable except as noted in History and below [facility] Medical History Anemia due to acute blood loss ?D62 - Acute posthemorrhagic anemia (ICD-10) Gestational hypertension ?O13.9 - Gestational [-induced] hypertension without significant proteinuria, unspecified trimester (ICD-10) anxiety ?O99.345 - Other mental disorders complicating the puerperium (ICD-10) ?F41.8 - Other specified anxiety disorders (ICD-10) (normal spontaneous vaginal delivery) ?O80 - Encounter for full-term uncomplicated delivery (ICD-10) Restless leg syndrome in ?O99.350 - Diseases of the nervous system complicating , unspecified trimester (ICD-10) ?G25.81 - Restless legs syndrome (ICD-10) Megacolon ?K59.39 - Other megacolon (ICD-10) Surgical History History of facial surgery ?Z98.890 - Other specified postprocedural states (ICD-10) 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 How often do you have a drink containing alcohol: never AUDIT-C Alcohol total score: 0 Non-prescribed substance use: denies use Little interest or pleasure in doing things: more than half the days Feeling down, depressed, or hopeless: several days Meds Home Medications and Allergies Home Medications ?Medication ?Instructions ?Recorded ?Confirmed ?Type prenat.vits,guru,usg-ftax-xxvwd 1 tab PO QDAY 01/26/22 02/26/24 History Allergies Allergy/AdvReac Type Severity Reaction Status Date / Time mold Allergy Verified 02/26/24 10:35 nitrofurantoin Allergy eye Verified 02/26/24 10:35 swelling Penicillins Allergy Anaphylaxis Verified 05/28/24 12:06 Other Blue Cheese Allergy Intermediate Hives Uncoded 02/26/24 10:35 BUTTON BUTTONHOLE MARKER - Exam Physical Exam: Vital signs: Temp Pulse Resp BP Pulse Ox O2 Del Method 98.6 F 79 20 106/60 100 Room Air 05/28/24 11:58 05/28/24 13:43 05/28/24 11:58 05/28/24 11:58 05/28/24 13:43 05/28/24 13:43 Narrative: Physical exam: VSS General: Patient is sobbing due to anxiety about surgery and the prolonged nature of her condition. Psych: Alert and oriented x3, full affect HEENT: Normocephalic, atraumatic Lungs: Unlabored breathing Neuro: No focal deficit. Mentating appropriately Pelvic exam: Deferred to OR BUTTON BUTTONHOLE MARKER - Results Labs Labs: Short CBC 05/28/24 Range/Units 12:26 WBC 9.87 (4.50-11.00) K/uL Hgb 13.7 (12.0-16.0) gm/dL Hct 39.8 (33.0-51.0) % Plt Count 205 (140-440) K/uL BMP 05/28/24 12:26 Sodium 136 Potassium 3.7 Chloride 103 Carbon Dioxide 21 BUN 8 Creatinine 0.5 Glucose 86 Calcium 9.4 Assessment and Plan Assessment and plan (1) Incomplete : Status: Acute (2) Vaginal bleeding: Status: Acute (3) Anembryonic : Status: Acute (4) Rh negative status during : Status: Acute Plan - We discussed early loss and management options including expectant management, medical management, surgical management. Unfortunately, she has failed expectant and medical management. While, the gestational sac appeared to have passed, there is still retained products left inside her uterus. I recommend surgical management at this point. Surgical management: This is the primary mode of treatment if patient presents in an emergent situation which include hemorrhage (excessive/life threatening bleeding) or infection. It is also used if the previous 2 options fail. I reviewed how this procedure is performed. This is done in the operating room with conscious sedation. The cervix is dilated open, a plastic curette is advanced into the uterus and connected to a vacuum. The vacuum then pulls the /retained products out of the uterus. All tissue removed from the uterus is sent to the lab for testing to verify that tissue was obtained. Declined cytogenetic testing. Ultrasound guidance is generally not required. Risks with a suction curettage include injury to cervix or uterus 1/400-1/500. Infection in the uterus resulting in endometritis 1/400-1500. She will receive antibiotics in the IV in the operating room prior to the procedure to prevent infection (200 mg of doxycycline). Chance of Asherman syndrome resulting in inability to conceive a in the future: 07/2499. Chance of anesthesia complications are extremely rare: Less than 1/100,000 especially with negative personal or family history of anesthesia issues. Expected recovery: Mild cramping after miscarriage/surgery usually controlled with [id number] extra-strength Tylenol and ibuprofen. Only restriction for activity postoperatively/after a miscarriage is nothing vaginally for 2 weeks. She should expect to have some bleeding for 2-4 weeks after surgery or spontaneous miscarriage. If she continues to have bleeding past 4 weeks I would recommend a follow-up ultrasound to assess for retained products of conception. All of her questions were answered. After reviewing risk, benefits and alternatives, patients desires to proceed with suction dilation and curettage. Patient's blood type: O negative. Received RhoGAM in December. They had a lot of questions about RhoGAM. Rh status, RhoGAM, and alloimmunization discussed with them. Consented to RhoGAM after counseling and will receive it today.
[2024-05-28] MEDS: 0.9 % SODIUM CHLORIDE 500 ML 500 ML 100 ML IV (14:00)
[2024-05-28] MEDS: DOXYCYCLINE HYCLATE 200 MG in 0.9 % SODIUM CHLORIDE 250 ml 250 ML 250 MG IVPB (14:38)
--- OUTSIDE RECORDS SUMMARY | 2024-05-28 14:38 | XMS_ITS | Clinical Summary ---
[facility] Address [address] [place] [address] Care Team Providers Care Iron Melter Name Role Phone Genesis Hampton MD Primary Care Provider Source Comments You are receiving this document as you are listed as the primary care provider,follow-up provider, or the patient has been referred to you for consultation.This is in compliance with the Medicare and[facility] EHR Incentive Program,which states Providers who transition their patient to another setting of careor provider of care or refers their patient to another provider of care shouldprovide summary care record for each transition of care or referral. [facility] Allergies Active Allergy Reactions Criticality Noted Date Comments Nitrofurantoin Hives High 2018 Other Hives High 2018 Mcdonald-MCR; pt mom reported Medications Medication Sig Dispensed [...] Comments Blood Pressure 115/71 2018 4:11 PM BODY AND FENDER WORKER Pulse 96 2018 4:11 PM [employer] AND [employer]ENDER WORKER Temperature 36.2 ??C (97.2 ??F) 09/21/2010 4 :22 PM BODY AND FENDER WORKER ORAL C: 36.2 C Respiratory Rate - - Oxygen Saturation - - Inhaled Oxygen Concentration - - Weight 48.9 kg (107 lb 14.4 oz) 2018 4:11 PM [employer] AND [employer]ENDER WORKER Height 165.6 cm (5' 5.2) 2018 4: 11 PM [employer] AND FENDER WORKER Body Mass Index 17.85 2018 4:11 PM BODY AND FENDER WORKER Plan of Treatment Health Maintenance Due Date [...] PATH LIQUID BASED Routine 2018 4:48 PM B[employer] AND FENDER WORKER from Last 3 Months or Most Recently Relevant to Health Maintenance Results * Pap Smear (2018 4:48 PM BODY AND FENDER WORKER) 2018 4:48 PM BODY AND FENDER WORKER Narrative PN SOFT - 08/30/2018 11:40 AM BODY AND FENDER WORKER FINAL GYNECOLOGICAL CYTOLOGY REPORT Pathology #: [id number] ?Date Obtained: 2018 ? Date Received: 08/29/2018 [...] and false-negative reports may occur. Performed at [address] [address] Genesis Hampton MD LAB_[address] PN SOFT [address] [place] [address] [id number] from Last 3 Months or Most Recently Relevant to Health Maintenance Care Teams Iron Melter Relationship Specialty Start Date End Date Genesis Hampton MD [address] [place] [address] PCP - General 05/08/12
--- NOTE | 2024-05-28 14:48 | W.ANESCHARGE ---
Anesthesia Charges Start Date/Time Anesthesia Start Date: 05/28/24 Anesthesia Start Time: 14:38 Stop Date/Time Anesthesia Stop Date: 05/28/24 Anesthesia Stop Time: 15:27 Summary Emergency: MDA
[2024-05-28 15:25] VITALS: BP 99/55; PULSE 80; RESP 16; TEMP 36.7; O2SAT 100
--- NOTE | 2024-05-28 15:25 | P.ANES_ITS ---
Anesthesia Charges Start Date/Time Anesthesia Start Date: 05/28/24 Anesthesia Start Time: 14:38 Stop Date/Time Anesthesia Stop Date: 05/28/24 Anesthesia Stop Time: 15:27 Summary Emergency: DIRECTOR LEARNING AND DEVELOPMENT
--- NOTE | 2024-05-28 15:32 | PM.GYNPRPL ---
Procedure Pre-op/Post-op diagnoses: Pre-Op/Post-Op Diagnoses Operation Date: 05/28/24 14:10 <No data on this case meets the specified criteria> Procedure: Procedures Operation Date: 05/28/24 14:10 Actual Procedure Side Surgeon p Suction Dilatation & Curettage Not Applicable Lupe Dukes MD Estimated blood loss (mL): 50 Anesthesia type: MAC Complications: none Specimen: uterine contents Disposition: PACU Narrative: SUCTION DILATION AND CURETTAGE PREOPERATIVE DIAGNOSIS: 1. Retained products of conception POSTOPERATIVE DIAGNOSIS: 1. 1. Retained products of conception PROCEDURE: 1. EUA 2. Suction dilation and curettage SURGEON: Lupe Dukes MD ANESTHESIA: MAC FINDINGS: 1. A 7 size mobile anteverted uterus, no adnexal masses on EUA 2. Normal external genitalia, normal appearing cervix. Small amount of blood in the vaginal vault FLUIDS: 300 cc ESTIMATED BLOOD LOSS: 50 cc URINE OUTPUT: 400 cc COMPLICATIONS: None PREOP ANTIBIOTIC: 200 mg of Doxycycline SPECIMEN: 1. Products of conception INDICATIONS: Renetta is a 28yo G3 P 1101, with diagnosis of an anembryonic who failed expectant and medical management. She presented to the ED today for heavy vaginal bleeding and was noted to have retained products of conception insider her uterus. DESCRIPTION OF PROCEDURE: The patient was taken to the operating room where MAC was administered. She was prepared and draped in normal sterile fashion in the dorsal lithotomy position in [facility], taking care to avoid lower extremity hyperextension, hyperflexion or compression. A surgical time-out was performed with the entire operative staff per protocol. Perioperative antibiotics were given and pneumoboots were placed and activated. EUA revealed the above findings. Bladder was drained with a straight cath. A speculum was placed in the patient's vagina and a single-tooth tenaculum was placed on the anterior lip of the cervix. The cervix was gently dilated to a 7 [place] diameter to accommodate the 7 suction curettage. The suction curettage was then inserted under direct visualization. The uterus was then gently suction curetted and rotated to clear the uterus of products of conception. This was performed until a gritty texture was noted and the uterus was cleared of all remaining products of conception. There was minimal bleeding noted after the suction curettage was removed. The tenaculum was removed from the anterior lip of the cervix, silver nitrate applied, and excellent hemostasis was noted. All instruments were removed. Debrief performed per protocol and specimen reviewed. Specimen was sent to pathology. The patient tolerated the procedure well. Sponge, lap and needle counts were correct x 2. The patient was taken to the recovery room in stable condition.
[2024-05-28 15:45] VITALS: BP 101/60; PULSE 82; RESP 16; O2SAT 100
[2024-05-28 16:00] VITALS: BP 110/65; PULSE 65; RESP 16; O2SAT 100
== END 2024-05-28 16:24 | disposition home or self-care (01) ==
LOC: ED 13:54 → OR 14:37
PROVIDERS: Emergency Provider Emergency Medicine Emergency Medical Services; Visit Provider Obstetrics & Gynecology
PROC: (CPT 59812; principal; 2024-05-28 14:00)
DX: O03.1 Delayed or excessive hemorrhage following incomplete spontaneous abortion (principal); O26.891 Other specified pregnancy related conditions, first trimester; Z67.41 Type O blood, Rh negative
CPT/HCPCS: 59812; 01965; 36415; 76830; 80048; 84703; 85025; 86850; 86900; 86901; 88305; 99140; 99285; J1885; J2250; J2405; J2704; J2791; J3010; J7030; J7050

== ENCOUNTER 2024-11-18 12:22 | Emergency (ER) | payer OTHER, SELFPAY ==
[2024-11-18 12:30] VITALS: BP 124/81; PULSE 88; RESP 18; TEMP 37.3; O2SAT 99
--- NOTE | 2024-11-18 12:45 | CRLHL7_ITS ---
For Patients: As a result of the Century Cures Act, medical imaging exams and procedure reports are released immediately into your electronic medical record. You may view this report before your referring provider. If you have questions, please contact your health care provider. INDICATION: Bleeding and cramping. TECHNIQUE: Ultrasound OB pelvis transvaginal. Real-time buckley-scale imaging of the pelvis was performed. COMPARISON: Pelvic ultrasound dated 05/28/2024. FINDINGS: No sign of intrauterine or ectopic . Endometrium is empty and measures 5 mm in thickness with a few nonspecific punctate echogenic foci. The ovaries are of normal size. Questionable left adnexal 2.4 cm solid structure with associated blood flow on color Doppler imaging. There are no suspicious fluid collections noted in the cul-de-sac. IMPRESSION: No signs of intrauterine . Questionable left adnexal 2.4 cm solid structure may reflect mildly prominent normal ovarian tissue, though if there is persistent concern for an ectopic , attention is recommended on follow up imaging. Dictated by Tom Figueroa MD @ 11/18/2024 1:25:44 PM (Electronically Signed)
--- NOTE | 2024-11-18 12:47 | ED_ITS ---
HPI - General Adult General Chief complaint: OB/Uterine Contractions Stated complaint: possible miscarriage-sent by triage Time Seen by Provider: 11/18/24 12:27 History of Present Illness HPI narrative: This 29-year-old female comes in reporting positive tests at home and now starting today has some vaginal bleeding and cramping suspicious of a miscarriage. She has had 2 previous miscarriages and has 1 son at home. She does not report any lightheadedness or shortness of breath. She contacted the OB department and was instructed to come here. She is Rh negative in her blood type. Related Data Previous Rx's ?Medication ?Instructions ?Recorded acetaminophen 500 mg tablet 1,000 mg (2 x 500 mg) PO Q6H PRN 05/28/24 #30 tabs Allergies Allergy/AdvReac Type Severity Reaction Status Date / Time mold Allergy Verified 06/15/24 12:36 Penicillins Allergy Anaphylaxis Verified 06/15/24 12:36 Other Blue Cheese Allergy Intermediate Hives Uncoded 06/15/24 12:36 Review of Systems Status of ROS: Reports: 10 or more systems reviewed and unremarkable except as noted in History and below Narrative: Constitutional: No fevers, no weight gain or loss. Eyes: No discharge. No vision changes. HENT: No congestion, no sore throat, no ear pain. Cardiovascular: No chest pain, no palpitations. Respiratory: No shortness of breath, no wheezes, no cough. Gastrointestinal: No vomiting, no diarrhea. Genitourinary: No dysuria, no hematuria. Musculoskeletal: Normal range of motion. Skin: No rashes, no pruritis. Neurological: No dizziness, weakness, sensory change, speech change. Endo/Heme/Allergies: No bruising or bleeding. No polydipsia. Pysch: no suicidality, no anxiety, no insomnia. All other systems reviewed and are negative. [facility] Medical History Anemia due to acute blood loss ?D62 - Acute posthemorrhagic anemia (ICD-10) Gestational hypertension ?O13.9 - Gestational [-induced] hypertension without significant proteinuria, unspecified trimester (ICD-10) anxiety ?O99.345 - Other mental disorders complicating the puerperium (ICD-10) ?F41.8 - Other specified anxiety disorders (ICD-10) (normal spontaneous vaginal delivery) ?O80 - Encounter for full-term uncomplicated delivery (ICD-10) Restless leg syndrome in ?O99.350 - Diseases of the nervous system complicating , unspecified trimester (ICD-10) ?G25.81 - Restless legs syndrome (ICD-10) Megacolon ?K59.39 - Other megacolon (ICD-10) Surgical History History of facial surgery ?Z98.890 - Other specified postprocedural states (ICD-10) 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 HEENT: Normocephalic, atraumatic. Neck: Normal range of motion. Nontender. Supple. Heart: Intact distal pulses. Lungs: No chest discomfort. No wheezes, rhonchi, or rales. Abdomen: Nontender. Back: Normal range of motion. Extremities: Normal range of motion. No injury. Skin: Intact. No rash. Warm. No erythema or pallor. Neurologic: No altered sensation. No weakness. Alert and oriented. Psychiatric: No suicidality. No anxiety or depression. No insomnia. Nursing notes and vitals signs are reviewed. Const: Vital Signs, click to edit/add: Vital Signs - 24 hr 11/18/24 12:30 Temperature 99.1 F Pulse Rate [Pulse Oximeter] 88 Respiratory Rate 18 Blood Pressure [Ri ght Upper Arm] 124/81 Pulse Oximetry 99 Oxygen Delivery Me thod Room Air Course Vital Signs Vital signs: Initial Vital Signs Temperature 99.1 F 11/18/24 12:30 Temperature Source Temporal Artery Scan 11/18/24 12:30 Pulse Rate 88 11/18/24 12:30 Respiratory Rate 18 11/18/24 12:30 Blood Pressure 124/81 11/18/24 12:30 Blood Pressure Mean 95 11/18/24 12:30 Pulse Oximetry 99 11/18/24 12:30 Oxygen Delivery Method Room Air 11/18/24 12:30 Vital Signs Temperature 99.1 F 11/18/24 12:30 Pulse Rate 88 11/18/24 12:30 Respiratory Rate 18 11/18/24 12:30 Blood Pressure 124/81 11/18/24 12:30 Pulse Oximetry 99 11/18/24 12:30 Oxygen Delivery Method Room Air 11/18/24 12:30 Temperature 99.1 F 11/18/24 12:30 Pulse Rate 88 11/18/24 12:30 Respiratory Rate 18 11/18/24 12:30 Blood Pressure 124/81 11/18/24 12:30 Pulse Oximetry 99 11/18/24 12:30 Oxygen Delivery Method Room Air 11/18/24 12:30 Medical Decision Making MDM Narrative Medical decision making narrative: This patient comes in with abdominal cramping and some mild vaginal bleeding that began today. She had a positive home test and is wondering if she is having a miscarriage. Her beta hCG level today is quite low at 11. A pelvic ultrasound is obtained and shows nothing by way of in the uterus. There is a more solid structure in the left adnexa the which could be her ovary but it is uncertain. There is a Willy small rare possibility that this could be ectopic . I did speak with the OBGYN physician on-call who will see the patient in clinic in a couple days to recheck her beta hCG level. She is instructed to return if worsening symptoms occur. Lab Data Labs: Lab Results 11/18/24 Range/Units 13:09 WBC 5.16 (4.50-11.00) K/uL RBC 4.43 (4.00-5.20) m/uL Hgb 13.6 (12.0-16.0) gm/dL Hct 40.0 (33.0-51.0) % MCV 90 (80-100) fL MCH 31 (26-34) pg MCHC 34 (32-36) gm/dL RDW Coeff of Doreen 13.0 (11.5-15.5) % Plt Count 186 (140-440) K/uL Neut % (Auto) 46.8 (42.0-72.0) % Lymph % (Auto) 43.8 (20-44) % [place] % (Auto) 7.8 (0.0-11.0) % Eos % (Auto) 1.2 (0.0-7.0) % Baso % (Auto) 0.4 (0.0-3.0) % Neut # (Auto) 2.42 (1.7-7.0) K/uL Lymph # (Auto) 2.26 (0.90-2.90) K/uL Huntington # (Auto) 0.40 (0.00-0.90) K/UL Eos # (Auto) 0.06 (0.00-0.50) K/uL Baso # (Auto) 0.02 (0.00-0.30) K/uL Abs Immat Gran (auto) 0.00 (0.00-0.30) K/uL Imm/Tot Granulo (auto) 0.0 % Sodium 138 (135-149) mmol/L Potassium 3.9 (3.6-5.1) mmol/L Chloride 103 (96-114) mmol/L Carbon Dioxide 24 (20-32) mmol/L Anion Gap 11 (7-15) mEq/L BUN 12 (5-24) mg/dL Creatinine 0.6 (0.5-1.5) mg/dL Estimated Creat Clear 116.74 Estimated GFR 123 ml/min Glucose 88 (60-115) mg/dL Calcium 9.3 (8.4-10.6) mg/dL HCG, Quant 11.27 mIU/mL Imaging Data US - abdomen: Radiologist's impression: FINDINGS: No sign of intrauterine or ectopic . Endometrium is empty and measures 5 mm in thickness with a few nonspecific punctate echogenic foci. The ovaries are of normal size. Questionable left adnexal 2.4 cm solid structure with associated blood flow on color Doppler imaging. There are no suspicious fluid collections noted in the cul-de-sac. IMPRESSION: No signs of intrauterine . Questionable left adnexal 2.4 cm solid structure may reflect mildly prominent normal ovarian tissue, though if there is persistent concern for an ectopic , attention is recommended on follow up imaging. Discharge Plan Discharge Clinical Impression: Miscarriage Patient Disposition: Home, Self-Care Condition: Stable Additional Instructions: Follow-up with OBGYN clinic for recheck in a couple days. Return if worsening symptoms occur. Prescriptions: No Action acetaminophen 500 mg tablet 1,000 mg PO Q6H PRNQty: 30 0RF Follow Up/Referrals: Provider,Not a Local [Primary Care Provider] - Stand Alone Forms: [employer] Info Instructions
[2024-11-18 13:23] LABS: Basophils Absolute Auto 0.02 K/uL (0.00-0.30); Basophils Percent Auto 0.4 % (0.0-3.0); Eosinophils Absolute Auto 0.06 K/uL (0.00-0.50); Eosinophils Percent Auto 1.2 % (0.0-7.0); Hemoglobin* 13.6 gm/dL (12.0-16.0); Lymphocytes Absolute Auto 2.26 K/uL (0.90-2.90); Lymphocytes Percent Auto 43.8 % (20-44); Mean Corpuscular HGB Conc 34 gm/dL (32-36); Mean Corpuscular Hemoglobin 31 pg (26-34); Mean Corpuscular Volume 90 fL (80-100); Monocytes Percent Auto 7.8 % (0.0-11.0); Neutrophils Absolute Auto 2.42 K/uL (1.7-7.0); Neutrophils Percent Auto 46.8 % (42.0-72.0); Platelet Count* 186 K/uL (140-440); Red Blood Count 4.43 m/uL (4.00-5.20); White Blood Count* 5.16 K/uL (4.50-11.00)
[2024-11-18 13:27] LABS: Slide Review Reflex No
[2024-11-18 13:37] LABS: Chloride* 103 mmol/L (96-114); Potassium* 3.9 mmol/L (3.6-5.1); Sodium* 138 mmol/L (135-149)
[2024-11-18 13:40] LABS: Anion Gap 11 mEq/L (7-15); Blood Urea Nitrogen* 12 mg/dL (5-24); Calcium* 9.3 mg/dL (8.4-10.6); Carbon Dioxide* 24 mmol/L (20-32); Creatinine* 0.6 mg/dL (0.5-1.5); Est. Creatinine Clearance* 116.74; Estimated Glomerular Filt Rate 123 ml/min; Glucose* 88 mg/dL (60-115)
[2024-11-18 13:57] LABS: HCG Quantitative* 11.27 mIU/mL
== END 2024-11-18 14:51 | disposition home or self-care (01) ==
PROVIDERS: Emergency Provider Emergency Medicine Emergency Medical Services
DX: O03.9 Complete or unspecified spontaneous abortion without complication (principal)
CPT/HCPCS: 36415; 76817; 80048; 84702; 85025; 99284

== ENCOUNTER 2024-11-20 09:17 | Outpatient (CLI) | payer OTHER, SELFPAY | END 2024-11-20 09:18 | disposition home or self-care (01) | LOC: NFLDREF 11-23 04:03 | PROVIDERS: Visit Provider Obstetrics & Gynecology | DX: O20.9 Hemorrhage in early pregnancy, unspecified (principal) | CPT/HCPCS: 84702 ==

== ENCOUNTER 2024-11-26 10:45 | Outpatient (CLI) | payer OTHER, SELFPAY | END 2024-11-26 10:46 | disposition home or self-care (01) | LOC: NFLDREF 12-01 23:23 | PROVIDERS: Visit Provider Obstetrics & Gynecology | DX: O03.9 Complete or unspecified spontaneous abortion without complication (principal) | CPT/HCPCS: 84702 ==

== ENCOUNTER 2024-12-31 14:29 | Outpatient (CLI) | payer OTHER, SELFPAY ==
--- NOTE | 2024-12-31 14:45 | CRLHL7_ITS ---
For Patients: As a result of the Century Cures Act, medical imaging exams and procedure reports are released immediately into your electronic medical record. You may view this report before your referring provider. If you have questions, please contact your health care provider. INDICATION: Recurrent loss COMPARISON: 05/28/2024 TECHNIQUE: 2D buckley-scale and color Doppler images were acquired of the pelvis using a transabdominal and transvaginal approach. Transvaginal imaging performed to better visualize the endometrial stripe and ovaries. FINDINGS: Sonographic images demonstrate a normal size and smooth outer contour of the uterus. Uterus measures 8.9 cm in length by 3.6 cm in AP diameter by 5.3 cm in transverse dimension. Endometrium measures 4 millimeters. Endometrial and myometrial calcifications noted. The right ovary measures 3.0 x 1.9 x 2.3 cm in size and the left ovary measures 3.5 x 1.6 x 2.2 cm. The ovaries demonstrate normal arterial and venous blood flow on color Doppler analysis. There are no suspicious fluid collections within the cul-de-sac. IMPRESSION: Multiple punctate calcifications throughout the uterus. Endometrium measures 4 millimeters. No endometrial fluid. Normal ovaries. Dictated by Santosh Krishnan MD @ 01/04/2025 5:59:19 AM (Electronically Signed)
== END 2024-12-31 14:30 | disposition home or self-care (01) ==
LOC: US 14:30
PROVIDERS: Visit Provider Physician Assistant
DX: N96 Recurrent pregnancy loss (principal); N94.89 Other specified conditions associated with female genital organs and menstrual cycle
CPT/HCPCS: 76830; 76856

== ENCOUNTER 2025-03-15 15:10 | Emergency (ER) | payer OTHER, SELFPAY ==
--- OUTSIDE RECORDS SUMMARY | 2025-03-10 09:45 | XMS_ITS | Encounter Summary ---
Author Organization [facility] Address [address] [place] [address] Care Team Providers Care Audio Technician Name Role Phone Genesis Hampton MD Primary Care Provider [phone] Reason for Referral * Procedure/Equipment (Routine) - Incomplete Specialty Diagnoses / Procedures Referred By Contyoanna t Referred To Contact Diagnoses Missed menses Procedures US OB <14 Weeks W EV Single Santosh Akhtar MD [address] [facility] [address] [place] [address] Phone: tel: fax: Referral ID Status Reason Start Date Expiration Date V isits Requested Visits Authorized [id number] Incomplete 03/24/2025 06/23/2026 1 1 Reason for Visit * Reason Comments Intake Encounter Details Date Type Department Care Team (Late st Contact Info) Description 03/10/2025 9:45 AM CDT [facility] [address] [facility] [place] [address] Nurse Intake 2, P6500 Ob Missed menses (Primary Dx) Social History Tobacco Use Types Packs/Day Years Used Date Smoking Tobacco: Former Smokeless Tobacco: Never Tobacco Cessation:Counseling Given: Not Answered Comments:Smoked at 16 years for a short period of time and quit while still 16 years old. 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 Thank you for your time today. It was so nice to talk with you, we look forward to partnering with you in your care. We covered a lot of information and there will be even more during your first visits, so we have put together some resources and reminders for you to review. Helpful Numbers: [phone]: PN OB Call Center (use this number to schedule, change, or cancel appointments, or tospeak with a nurse regarding questions or concerns) [phone]: PN Radiology (scheduling for routine ultrasounds) [phone]: PN Lab scheduling (all your testing and laboratory needs) Next Steps: Future Appointments Provider Department Center 03/31/2025 2:15 PM (Arrive by 2:10 PM) [facility] US 1 [place] 1515 Ultrasound PN MAGGIE 03/31/2025 3:20 PM Santosh Akhtar MD [place] 1515 Obstetrics/Gynecology PN MAGGIE ULTRASOUND It is important to be sure that you have an appointment for an ultrasound before your first in-person visit. These ultrasounds can often be done the same day as your in-person appointment or, if need be, a few days before. RADIOLOGY SCHEDULING - Call this number to schedule, change, cancel, or confirm yourultrasound appointment. VISIT(S) Please keep in mind that your partner is welcome to come with you to visits. When you are initially roomed, your partner will wait in the lobby and then will join shortly after. With an uncomplicated routine appointments generally happen every four weeks during the first two trimesters of . Starting at week 28 until delivery, appointments will be more frequent. Every is different, and our staff will guide you as your progresses to help keep your appointments on track. OB Call Center - Call this number for assistance with appointment scheduling. ROUTINE LABS Labs will be ordered by your provider at different stages of your beginning with your first in-person appointment. You will likely receive your results through [employer] at the same time as your provider and you may even see them before your provider has a chance. Don't worry - if there areany additional needs or the results are abnormal or concerning, the clinic will get in touch with you. Typically, if everything is normal or as expected, the provider will just review with you at your next routine appointment. MEDICATIONS Please contact your prescribing clinicians to notify them of your and discuss any medications you are currently taking. They may recommend changes or ask that you discuss with your OB clinician at your next appointment. It is not recommended to start a new medication or supplement without first consulting with your care team (this does not typically include things like antibiotics prescribed by another doctor). [employer] (online patient portal and medical record) During your , we highly encourage and rely on your use of [employer]. This provides electronic access to, not only your personal medical information, but also to your care team. Please take time to become familiar with using this great tool. Some helpful options that are normally used during care include: Test Results: [employer] allows you to have access to results for the common blood and other laboratory tests completed during your . Questions/Messages: You can send non-urgent questions to your provider via [employer]. Please note, there can be a delay, so if you are experiencing any symptoms it is best to call the nurseline. Appointments: You can also use [employer] to review dates and times of appointments you have scheduled. Leap[employer]dert Help: If you need help with your [employer] account, contact the Patient Support team at [phone]. For information on nutrition and vitamins visit: Nutrition During ACOG Visit and review our jackie and the e-book of Your Guide to : [place] for our free jackie called ???myHealthyPregnancy?? powered by [facility]. The jackie offers many quick articles and videos on , labor, , , and newborncare. Scan the following QR code: Or click this link: BitGravityealthyPregnancy tracker jackie [facility] Copy & paste the following link to view the Your Guide to e-book: [email or web address] - ABOUT THE BOOK: This is the first book (1 of 3) that you will receive during your . It focuses on the earlier stages of and is packed with information. You will also receive a hard copy (unless you prefer to just use the electronic version) of this book at your first in-person appointment. Having a chance to review this ahead of time may help you generate questions for your first visit. - VIDEOS: The e-book also has videos available on many topics that may be of interest to you. - SAVE OR SHARE: Feel free to save and share the link for the book. This makes it easier to find and also helps partners feel more involved and informed during your . - COMMON/HELPFUL TOPICS: - Genetic Screening/Testing Options - Page 10 - Symptoms & Body Changes - Benefits of Exercise - Sexual Activity - Dental Hygiene - Travel - Feeding Plans/ Resources - Working/Lifestyle Considerations - Potential Risks and How to Avoid (for example, teratogens, listeriosis, & toxoplasmosis) - Nutrition - What to Eat/Not Eat: Avoid high glycemic content foods Adequate calcium Avoid nitrites - Weight Gain: Remember the information in the book is based on normal averages. Your clinician will discuss with you your recommendations for based on things like your personal health and BMI. - [facility] Fish Guides: https://www.[facility]/environment/fish/docs/choosefishengli sh.pdf https://www.[facility]/environment/fish/docs/pregntstateguid e.pdf CONTACT INSURANCE: Early is a great time to verify your insurance benefits and estimated costs. Individual insurance plans can vary, so it is best to contact your carrier directly for the most accurate information. If you have any difficulties or questions, don't hesitate to contact us at . Nursing support is available 24 hours a day, 365 days a year. We want to make sure that you feel supported and stay healthy. Thank you, again, for choosing us to partner in your care! [facility] * Attachments The following attachments cannot be sent through Care Everywhere. * : General Info (Mozambican) * : Visits: General Info (Mozambican) * : When to Call (Up to 20 Weeks): General Info (Mozambican) * !Over the Counter Medications: To treat common symptoms during (Mozambican) * !Nausea in (Mozambican) documented in this encounter Progress Notes * Luly Concepcion RN - 03/10/2025 9:45 AM CDT Images from the original note were not included. PARTIAL INTAKE: Due to time constraints, unable to fully complete the following topics: Family History MyChart message activation text message sent to pt's phone. RN OB Intake Visit Renetta Trujillo is a 29 y.o. female, : Was not planned for, but welcome. I was hoping to give my body a bit more time to recover from the SAB in 10/2024. Preferred Care Locations: Clinic Preference: [place] [] [facility] for Delivery: [facility] Provider care models, preferred locations, and expected plan for care reviewed with patient. 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 Other important social information/history: none Does patient have Type 1 or 2 diabetes? No CareEverwhere/External Records: CareEverywhere will need updating at in-person visit. 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 D&C - 04/2024. 2 Term 05/20/22 40w0d M Vag-Spont ARIAS Name: Ace 1 05/2021 Comments: D&C Menstrual History: LMP: Patient's last menstrual period was 01/21/2025 (approximate). Had a regular menses 12/24/24, but had an irregular menses start on 01/21/25 (lasted 2 days and was very light - when normally heavierflow & 5 days long). +UPT: 02/26/25 03/10/2025 10:01 AM MENSTRUAL TRACKING Period Cycle (Days) 30 Period Duration (Days) 5 Period Pattern Regular Menstrual Flow Moderate Menstrual Control Tampon Dysmenorrhea Mild Dysmenorrhea Symptoms Other (Comment);Headache;Cramping Cytology History: Last cytology: 07/2018 - NILM Last on file is from 07/2018, Renetta believes she may have had one since then, though. Current Symptoms: Pt states she is experiencing some nausea but no vomiting. Encouraged to maintain adequate fluid intake and try smaller, more frequent meals. Patient education for Nausea and Vomiting in , and Morning Sickness to be provided to patient in AVS. Occasional spurts. Reports the following symptoms: It's not cramping, but it sore in my lower abdomen for about 30 minutes, but I am also on my feet all day. Tiredness, breast tenderness, & not hungry. Home care advice and interventions provided to patient from approved Patient Education materials. Patient reminded of nurseline resource for new, worsening, or changing symptom(s) support and management. Contact information provided. GENERAL HEALTH STATUS & HISTORY: Past Medical History: Diagnosis Date Allergic rhinitis Anxiety (HRC) Constipation Heartburn during Irregular menstrual cycle H/O Irritable bowel syndrome Recurrent loss Scoliosis Urinary tract infection, site not specified H/O Varicella Virus Infection History: Hx Varicella (Virus) Surgical/Procedure History: Past Surgical History: Procedure Laterality Date COSMETIC SURGERY 07/29/2005 face after dog bite DILATION AND CURETTAGE 05/2021 & 04/2024 Medications: Current Outpatient Medications Medication Sig Dispense Refill acetaminophen (TYLENOL) 325 MG tablet Take 1-2 Tablets (325-650 mg) by mouth every 4 hours as needed for Pain. cetirizine (AKA ZYRTEC) 10 MG tablet Take 1 Tablet (10 mg) by mouth daily as needed (Take 1 tablet by mouth daily as needed.). PRN vitamin-ferrous fumarate-folic acid (PRENATALPLUS) 27-1 MG tablet Take 1 Tablet by mouth daily. Pt medications, allergies, and preferred pharmacy reviewed. Vitamin: Patient is currently taking a vitamin. Pt agrees to call OB clinicians with questions or concerns regarding medication use throughout thispregnancy and to notify any other prescribing clinicians of status. MENTAL HEALTH/SOCIAL STATUS & HISTORY: Renetta states she is concerned about her stress level in regards to the given her history of SAB - I just want to know if this baby has a heartbeat. RN provided education & resources- pt to call nurse line if she feels it becomes unmanageable. 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 Vaping Use Vaping status: Never Used Substance and Sexual Activity Alcohol use: Not Currently Drug use: Never Sexual activity: Yes Partners: Male control/protection: None Comment: Yvan (FOB/) - : Unplanned, but welcome. Was hoping to give her body more of a break after the SAB in 10/2024. Other Topics Concern Bike Helmet Yes [place] Yes Comment: Filtered Exercise Yes Guns in home No Seat Belt Yes Special Diet Yes Comment: No heavy creams & avoids certain meats d/t IBS-c. Weight Concern No FAMILY/GENETIC STATUS, HISTORY, & RISK FACTORS: Patient reports a positive family history of : Recurrent loss. Yvan's (FOB) Mother & MGF - Parkinson's. COMPLETED WITH INTAKE VISIT: Ultrasound: Ordered per standing order. Pt instructed to complete scan prior to, and as close to, NOB1 visit as possible. Pt transferred to radiology scheduling upon completion of intake visit. Education Topics Discussed and Encouraged for Review from Your Guide to and HP/PN approved Patient Education Resources: Diet and Nutrition: encourage fruits, vegetables, and low-fat protein sources avoid high glycemic index foods and simple carbs importance of adequate calcium discussed eating fish in listeriosis infection (including sources and prevention of Listeriosis) avoid nitrites in processed meats Medications: Patient provided additional education piece of Yirc-fzc-Rsahnlo medications safe for use in . Sexual activity during discussed. Dental hygiene during discussed. Avoid use of alcoholic beverages, smoking, and recreational drugs reminder provider. Patient provided clinical resources, as applicable. Environmental and work considerations and overall lifestyle choices in reviewed with patient. Benefits of exercise during reviewed. Patient encouraged to maintain regular physical activity. /Childbirth classes and options discussed. At next visit, provider to review records and establish formal plan of care. Book & Jackie: Patient provided information on how to access Your Guide to e-book and the free BitGravityealthyPregnancy Jackie. MyChart: Patient given guidance to use [employer] to message care team and review results during theirpregnancy. Additional links/resources sent for patient to review. Nurseline: Pt instructed to call nurseline with changes, questions, or concerns. All other standard OB educational resources reviewed with patient, as well as ways to access or obtain. Pt verbalizes understanding and agrees with plan of care. No further questions at this time. Patient reminded of nurseline access 18/02. director compliance Visit completed - March 10, 2025 Pencil Sorter: Not Applicable Length of appointment: 33 minutes not including chart review or visit documentation. documented in this encounter Plan of Treatment Upcoming Encounters Date Type Department Care Team (Late st Contact Info) Description 03/31/2025 2:15 PM CDT Appointment [place] 151 Ultrasound [address] [facility]. [place] [address] Santosh Akhtar MD [address] [facility] [place] [address] [place] [address] 03/31/2025 3:20 PM CDT Appointment [place] 1515 Obstetrics/Gynecology [address] [facility]. [place], [place] [id number] Santosh Akhtar MD [address] [facility] [address] [place] [id number] Scheduled Orders Name Type Priority Associated Diagnoses Orde r Schedule US OB <14 Weeks W EV Single Imaging New Routine Missed menses Expected: 03/24/2025 (Approximate), Expires: 03/24/2026 documented as of this encounter Visit Diagnoses Diagnosis Missed menses- Primary Absence of menstruation documented in this encounter Care Teams Audio Technician Relationship Specialty Start Date End Date Genesis Hampton MD [address] [place], [place] [id number] PCP - General 05/08/12 documented as of this encounter
--- OUTSIDE RECORDS SUMMARY | 2025-03-15 15:12 | XMS_ITS | Encounter Summary ---
Author Organization Replaced by [facility] Address [address] [place] [address] Care Team Providers Care Plan Nurse Name Role Phone Genesis Hampton MD Primary Care Provider Encounter Details Date Type Department Care Team (Late Contact Info) Description 03/10/2025 [facility] [address] [facility] 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 [address] Santosh Akhtar MD [address] [facility] [address] [place] [address] 03/31/2025 3:20 PM CDT Appointment [place] 1515 Obstetrics/Gynecology [address] [place] [address] [place] [address] Santosh Akhtar MD [address] [facility] [address] [place] [address] documented as of this encounter Visit Diagnoses Not on filedocumented in this encounter Care Teams Plan Nurse Relationship Specialty Start Date End Date Genesis Hampton MD [address] [facility] [place] [id number] PCP - General 05/08/12 documented as of this encounter
--- OUTSIDE RECORDS SUMMARY | 2025-03-15 15:12 | XMS_ITS | Clinical Summary ---
Author Organization [facility] Address [address] [place] [address] Care Team Providers Care Bullion Weigher Name Role Phone Genesis Hampton MD Primary Care Provider + [phone] Source Comments You are receiving this document as you are listed as the primary care provider,follow-up provider, or the patient has been referred to you for consultation.This is in compliance with the Medicare and[facility] EHR Incentive Program,which states Providers who transition their patient to another setting of careor provider of care or refers their patient to another provider of care shouldprovide summary care record for each transition of care or referral. Mind Candy Allergies Active Allergy Reactions Criticality Noted Date Comments Nitrofurantoin Hives High 2018 Other Hives High 2018 Ulster-MCR; pt mom reported Penicillins Respiratory Distress High 03/10/2025 Swollen & itchy throat. Pt's mother a MGF also allergic. Medications cetirizine (AKA ZYRTEC) 10 MG tablet Take 1 Tablet (10 mg) by mouth daily as needed (Take 1 tablet by mouth daily as needed.). PRN 09/21/19 11 Active vitamin-ferrous fumarate-folic acid (PRENATALPLUS) 27-1 MG tablet Take 1 Tablet by mouth daily. Active acetaminophen (TYLENOL) 325 MG tablet Take 1-2 Tablets (325-650 mg) by mouth every 4 hours as needed for Pain. Active APRI 0.15-30 MG-MCG tabletIndications :Encounter for surveillance of contraceptive pills TAKE 1 TABLET BY MOUTH EVERY DAY 84 Tablet 10/08/19 20 025 Discontinued (*Patient decision or formulary issue) Resolved Problems Problem Noted Date Diagnosed Date Resolved Date Excessive or frequent menstruation 07/18/2009 07/12/2017 Overview (03/20/2017): Menorrhagia Encounters Date Type Department Care Team Description 03/10/2025 9:45 AM CDT [facility] [address] [place] [address] Nurse Intake 2, [id number] Ob Missed menses (Primary Dx) 03/10/2025 E-Visit [facility] Obstetrics/Gynecolog y [address] 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 Not on file Not on file Last Filed Vital Signs Vital Sign Reading Time Taken Comments Blood Pressure 115/71 2018 4:11 PM [facility] Pulse 96 2018 4:11 PM [facility] Temperature 36.2 C (97.2 F) 09/21/2010 4:22 PM [facility] ORAL C: 36.2 C Respiratory Rate - - Oxygen Saturation - - Inhaled Oxygen Concentration - - Weight 48.9 kg (107 lb 14.4 oz) 2018 4:11 PM [facility] Height 165.6 cm (5' 5.2) 2018 4: 11 PM [facility] Body Mass Index 17.85 2018 4:11 PM [facility] Plan of Treatment Upcoming Encounters Date Type Department Care Team (Late st Contact Info) Description 03/31/2025 2:15 PM CDT Appointment [facility] Ul[facility] [address] [place] [address] [address] Santosh Akhtar MD [address] [place] [address] [address] [place] [address] 03/31/2025 3:20 PM CDT Appointment [facility] Obstetrics/Gynecology [address] [place] [address]. [place] [address] Santosh Akhtar MD [facility] [address] [place] [address] Health Maintenance Due Date Last Done Comments Hep C Screening (Preventive Services) 1993 IPV (Polio) Vaccine (4 of 4 - 4-dose series) 1997 03/19/1994, 01/23/1994, 1993 HIV Screening (Preventive Services) 2009 Adult Preventive Visit 2020 9, 07/12/2017, 03/30/2016 Cervical Cancer Screening 08/28/20212018, 07/12/2017, 03/30/2016, Additional history exists COVID-19 Vaccine ( season) 2024 DTaP/Tdap/Td Vaccine (6 - Tdap) 12/17/2024 12/17/2014, 07/15/1996, 03/19/1994, Additional history exists Influenza Vaccine (#1) 2025 Zoster/Shingles Vaccine (1 of 2) 2043 Hib Vaccine Aged Out 03/19/1994, 12/28, 1993 No longer eligible based on patient's age to complete this topic HepB Vaccine Completed 07/15/1996, 10/27, 1993 HPV Vaccine Completed 04/03/2011, 10/28, 09/21/2010 HepA Vaccine Aged Out No longer eligi ble based on patient's age to complete this topic MCV4 Vaccine Aged Out No longer eligi ble based on patient's age to complete this topic Meningococcal B Vaccine Aged Out No l onger eligible based on patient's age to complete this topic Pneumococcal Vaccine Aged Out No long er eligible based on patient's age to complete this topic Procedures Procedure Name Priority Date/Time Associated Diagnosis Comments ANATOMICAL PATH LIQUID BASED Routine 2018 4:48 PM [facility] from Last 3 Months or Most Recently Relevant to Health Maintenance Results * Pap Smear (2018 4:48 PM [facility]) 2018 4:48 PM [facility] Narrative PN SOFT - 08/30/2018 11:40 AM [facility] FINAL GYNECOLOGICAL CYTOLOGY REPORT Pathology #: [id number] Date Obtained: 2018 Date Received: 08/29/2018 INTERPRETATION/RESULTS: Negative for Intraepithelial Lesion or Malignancy. SPECIMEN ADEQUACY: Satisfactory for Evaluation. Endocervical cells/transformation zone component present. Verified on 08/30/2018 by LUCAS MEHTA(ASCP) (electronic signature) CLINICAL NOTES: Abnormal bleeding: No, LMP: 08/20/18, Menstrual status: None Apply, Current form of therapy: Hormone Therapy LIQUID BASED PAP SMEAR SPECIMEN TYPE: ROUTINE CERVICAL PAP TEST PLEASE NOTE: The pap smear is a screening test designed to aid in the detection of cervical cancer and its precursor lesions. It is not a diagnostic procedure and should not be used as the sole means of detecting cervical cancer. Both false-positive and false-negative reports may occur. Performed at [facility], [address] [place] [address] Genesis Hampton MD LAB_1 Final Result PN SOFT [address] [place], [place] [id number] from Last 3 Months or Most Recently Relevant to Health Maintenance Insurance [employer] Care Teams Bullion Weigher Relationship Specialty Start Date End Date Genesis Hampton MD [address] [place], [place] [id number] PCP - General 05/08/12
[2025-03-15 15:19] VITALS: BP 131/77; PULSE 86; RESP 16; TEMP 36.6; O2SAT 99; BMI 20.1
--- NOTE | 2025-03-15 16:12 | ED.PREGNANCY ---
HPI - General Time Seen by Provider: 16:12 Date Seen: 03/15/25 Chief complaint: Vaginal Bleeding Stated complaint: possible miscarriage Time Seen by Provider: 03/15/25 16:11 Source: patient and RN notes reviewed Mode of arrival: ambulatory Limitations: no limitations History of Present Illness HPI Narrative: This 29-year-old female with recurrent loss is coming in with presume about 7 weeks, some light spotting with wiping after she started to develop suprapubic/pelvic cramping and low back pain. She has had symptoms for about 4 hours, after the cramping in the low back pain started, she did go to the bathroom and got some light pink spotting. She had a miscarriage with her 1st , did have a D&C. She had a subsequent and does have a son. She had a now other with early loss, states she took pills but ended up 2 months later bleeding and having to have a D&C. Her last resulted in spontaneous miscarriage that per her report took care of itself. She has not been sick with anything, no fevers or chills. She states her symptoms feel like her other miscarriages. She is O negative by her blood type, negative antibiotics screens prior. Related Data Home Medications ?Medication ?Instructions ?Recorded ?Confirmed cetirizine 10 mg tablet (Zyrtec) 10 mg PO QDAY PRN 11/26/24 03/15/25 Previous Rx's ?Medication ?Instructions ?Recorded acetaminophen 500 mg tablet 1,000 mg (2 x 500 mg) PO Q6H PRN 05/28/24 #30 tabs Allergies Allergy/AdvReac Type Severity Reaction Status Date / Time mold Allergy Verified 03/15/25 15:18 Penicillins Allergy Anaphylaxis Verified 03/15/25 15:18 Other Blue Cheese Allergy Intermediate Hives Uncoded 11/26/24 11:09 Review of Systems Narrative: As per HPI. PFS PFS Medical History Vaginal bleeding ?N93.9 - Abnormal uterine and vaginal bleeding, unspecified (ICD-10) Anemia due to acute blood loss ?D62 - Acute posthemorrhagic anemia (ICD-10) Gestational hypertension ?O13.9 - Gestational [-induced] hypertension without significant proteinuria, unspecified trimester (ICD-10) anxiety ?O99.345 - Other mental disorders complicating the puerperium (ICD-10) ?F41.8 - Other specified anxiety disorders (ICD-10) (normal spontaneous vaginal delivery) ?O80 - Encounter for full-term uncomplicated delivery (ICD-10) Restless leg syndrome in ?O99.350 - Diseases of the nervous system complicating , unspecified trimester (ICD-10) ?G25.81 - Restless legs syndrome (ICD-10) Megacolon ?K59.39 - Other megacolon (ICD-10) Surgical History History of facial surgery ?Z98.890 - Other specified postprocedural states (ICD-10) 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 Face atraumatic, sclera clear, speaking in complete sentences. Neck is supple, no adenopathy, no thyromegaly masses or nodules. Lungs are clear come good air entry, wheezing or crackles, no tachypnea, no accessory muscle use. CV regular rate and rhythm, no murmur, normal S1-S2, no S3-S4. Abdomen is soft, nondistended, no organomegaly, no rebound or guarding, no masses. Documenting provider has reviewed patient's vital signs: yes Course Course ED Course: Patient unfortunately is aware of the process. We will get blood work to get a baseline hemoglobin, get a quantitative hCG. I have ordered an ultrasound. Will talk to Ob if this is concern for recurrent miscarriage on imaging. We did review possibility subchorionic hemorrhage but patient admits she is not hopeful, think she is likely miscarrying. Reviewed with her that we certainly will get the hCG and the ultrasound to help us further evaluate her situation. 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 She has a single to an IUP measuring 6 weeks, it is disc concordant with her dates which would give her 7 weeks 4 days by LMP. There is no evidence of any bleeding. She is still cramping, no known increased bleeding at all At this time. She is aware that we are waiting the hCG level, will talk to Ob after that. Consultations Consultation #1: Did speak with Dr. Jansen from OB. She agrees that this certainly is concerning for threatened . The discordance of dating is concerning particularly if patient is sure of her LMP. She is going to put in for repeat ultrasound follow-up in 1 week. She does want me to give this patient RhoGAM given her O negative status. I will also send patient with a tissue cup if she does start to have heavier bleeding and passes anything with tissue, they would offer sided genetics. If this does go on to miscarriage, she should follow-up and they can offer full workup for recurrent loss. She does not feel that we need to wait for the hCG. Patient was updated on this conversation. LMP dates may not be as firm as initially thought after talking to her again. Time: 17:51 Vital Signs Vital signs: Initial Vital Signs Temperature 97.9 F 03/15/25 15:19 Temperature Source Temporal Artery Scan 03/15/25 15:19 Pulse Rate 86 03/15/25 15:19 Respiratory Rate 16 03/15/25 15:19 Blood Pressure 131/77 03/15/25 15:19 Blood Pressure Mean 95 03/15/25 15:19 Pulse Oximetry 99 03/15/25 15:19 Oxygen Delivery Method Room Air 03/15/25 15:19 Vital Signs Temperature 97.9 F 03/15/25 15:19 Pulse Rate 86 03/15/25 15:19 Respiratory Rate 16 03/15/25 15:19 Blood Pressure 131/77 03/15/25 15:19 Pulse Oximetry 99 03/15/25 15:19 Oxygen Delivery Method Room Air 03/15/25 15:19 Temperature 97.9 F 03/15/25 15:19 Pulse Rate 86 03/15/25 15:19 Respiratory Rate 16 03/15/25 15:19 Blood Pressure 131/77 03/15/25 15:19 Pulse Oximetry 99 03/15/25 15:19 Oxygen Delivery Method Room Air 03/15/25 15:19 MDM - OB/Uterine Contractions Lab Data Attestation: I reviewed the patient's lab results. Labs: Lab Results 03/15/25 Range/Units 17:02 WBC 6.10 (4.50-11.00) K/uL RBC 4.09 (4.00-5.20) m/uL Hgb 12.6 (12.0-16.0) gm/dL Hct 36.7 (33.0-51.0) % MCV 90 (80-100) fL MCH 31 (26-34) pg MCHC 34 (32-36) gm/dL RDW Coeff of Doreen 12.4 (11.5-15.5) % Plt Count 198 (140-440) K/uL Neut % (Auto) 59.2 (42.0-72.0) % Lymph % (Auto) 34.1 (20-44) % [place] % (Auto) 5.7 (0.0-11.0) % Eos % (Auto) 0.7 (0.0-7.0) % Baso % (Auto) 0.3 (0.0-3.0) % Neut # (Auto) 3.61 (1.7-7.0) K/uL Lymph # (Auto) 2.08 (0.90-2.90) K/uL [place] # (Auto) 0.30 (0.00-0.90) K/UL Eos # (Auto) 0.04 (0.00-0.50) K/uL Baso # (Auto) 0.02 (0.00-0.30) K/uL Abs Immat Gran (auto) 0.00 (0.00-0.30) K/uL Imm/Tot Granulo (auto) 0.0 % HCG, Quant 76281.00 mIU/mL Imaging Data US OB: Attestation: I have reviewed the pertinent imaging results. Radiologist's impression: Patient: BROOK SANTOS Facility:[facility] Patient ID:?[id number] Site Patient ID:?[id number]. Site :?1995 Study:?US-OB Pelvis 1st tri transvaginal-03/15/2025 5:01:17 PM Ordering Physician:Eloy Mosqueda Final Report: INDICATION: History of miscarriage, early OB bleeding and cramping TECHNIQUE: Ultrasound OB pelvis transvaginal. Real-time buckley-scale imaging of the pelvis was performed. COMPARISON: Ob ultrasound November 18, 2024 FINDINGS: Sonographic imaging demonstrates a single living intrauterine gestation. The embryo demonstrates a regular cardiac rate measuring 113 beats per minute. The embryo`s crown rump length measurement of 0.4 cm corresponds to a gestational age of 6 weeks 0 day with a sonographic due date of November 08, 2025. There is a normal appearing yolk sac. There are no gross abnormalities noted within the embryo at this early state of development. The placenta has not yet developed. There is no significant perigestational hemorrhage. The ovaries are of normal size. Likely corpus luteum cyst within the right ovary. There are no suspicious fluid collections noted in the cul-de-sac. IMPRESSION: Single live intrauterine gestation measuring 6 weeks 0 days by ultrasound measurements mildly discordant with gestational age by last menstrual period is 7 weeks 4 days. Dictated by Wiley Rubio MD @ 03/15/2025 5:17:44 PM (Electronic Signature) Discharge Plan Discharge Clinical Impression: Threatened Patient Disposition: Home, Self-Care Condition: Stable Instructions: Threatened Miscarriage (ED) Additional Instructions: It is possible that this could go on to a miscarriage with bleeding like prior ones. If the bleeding is heavy, have concerns or develop any fever during miscarriage, do need to seek re-evaluation emergently. Ob is supposed to get you scheduled for a follow-up ultrasound in 1 weeks time for viability of this , do recommend calling tomorrow to confirm this/make sure it is happening. If you unfortunately do go on to miscarry, can try to collect any tissue that you may pass and bring it back for cytogenetic evaluation. Activity Level: Activity as Tolerated Prescriptions: No Action cetirizine [Zyrtec] 10 mg tablet 10 mg PO QDAY PRN acetaminophen 500 mg tablet 1,000 mg PO Q6H PRNQty: 30 0RF Follow Up/Referrals: Provider,Not a Local [Primary Care Provider, Family Practice] Stand Alone Forms: MyHealth Info Instructions
--- NOTE | 2025-03-15 16:17 | CRLHL7_ITS ---
For Patients: As a result of the Cures Act, medical imaging exams and procedure reports are released immediately into your electronic medical record. You may view this report before your referring provider. If you have questions, please contact your health care provider. INDICATION: History of miscarriage, early OB bleeding and cramping TECHNIQUE: Ultrasound OB pelvis transvaginal. Real-time buckley-scale imaging of the pelvis was performed. COMPARISON: Ob ultrasound November 18, 2024 FINDINGS: Sonographic imaging demonstrates a single living intrauterine gestation. The embryo demonstrates a regular cardiac rate measuring 113 beats per minute. The embryo`s crown rump length measurement of 0.4 cm corresponds to a gestational age of 6 weeks 0 day with a sonographic due date of November 08, 2025. There is a normal appearing yolk sac. There are no gross abnormalities noted within the embryo at this early state of development. The placenta has not yet developed. There is no significant perigestational hemorrhage. The ovaries are of normal size. Likely corpus luteum cyst within the right ovary. There are no suspicious fluid collections noted in the cul-de-sac. IMPRESSION: Single live intrauterine gestation measuring 6 weeks 0 days by ultrasound measurements mildly discordant with gestational age by last menstrual period is 7 weeks 4 days. Dictated by Wiley Rubio MD @ 03/15/2025 5:17:44 PM (Electronically Signed)
[2025-03-15 17:10] LABS: Hematocrit* 36.7 % (33.0-51.0); Hemoglobin* 12.6 gm/dL (12.0-16.0); Immature Granulocytes Abs Auto 0.00 K/uL (0.00-0.30); Immature Granulocytes Pct Auto 0.0 %; Lymphocytes Absolute Auto 2.08 K/uL (0.90-2.90); Mean Corpuscular HGB Conc 34 gm/dL (32-36); Mean Corpuscular Hemoglobin 31 pg (26-34); Mean Corpuscular Volume 90 fL (80-100); RDW Coefficient of Variation % 12.4 % (11.5-15.5); Red Blood Count* 4.09 m/uL (4.00-5.20); White Blood Count* 6.10 K/uL (4.50-11.00)
[2025-03-15 17:18] LABS: Slide Review Reflex No
[2025-03-15 18:09] LABS: HCG Quantitative* 24100.00 mIU/mL
== END 2025-03-15 18:53 | disposition home or self-care (01) ==
PROVIDERS: Emergency Provider Family Medicine
DX: O20.0 Threatened abortion (principal)
CPT/HCPCS: 36415; 76817; 84702; 85025; 86900; 86901; 99283; 99284; J2791

== ENCOUNTER 2025-03-24 14:23 | Outpatient (CLI) | payer OTHER, SELFPAY ==
--- NOTE | 2025-03-24 14:45 | CRLHL7_ITS ---
For Patients: As a result of the Century Cures Act, medical imaging exams and procedure reports are released immediately into your electronic medical record. You may view this report before your referring provider. If you have questions, please contact your health care provider. OB ULTRASOUND INDICATION: Threatened . TECHNIQUE: Real time grayscale imaging of the fetus was performed. Transvaginal. Transvaginal imaging performed to better demonstrate the endometrium and ovaries. LMP: 01/21/2025. JAS by LMP: 10/30/2025. GA: 8 w, 6 d. Previous US: Yes. JAS by US: 11/08/2025. GA: 6 w, 0 d. CRL: 1.3 cm. 7 w 3 d. JAS: 11/07/2025. FHR: 152 BPM. Gestational sac: 2.4 cm. Appears within normal limits. Yolk sac: 3.2 mm. Appears within normal limits. Right ovary: 3.7 x 2.2 x 2.4 cm. CL. Left ovary: 2.6 x 1.6 x 1.7 cm. IMPRESSION: 1. Single living intrauterine measuring 7 weeks 3 days and sonographic due date 11/07/2025. 2. Small subchorionic hemorrhage inferiorly which measures 3 x 5 x 7 mm. Santosh Krishnan M.D. Diagnostic Radiologist [email or web address] THAO/concetta hylton/Dictated by: Santosh Krishnan MD @ 03/24/2025 4:26:00 PM (Electronically Signed)
== END 2025-03-24 14:24 | disposition home or self-care (01) ==
LOC: US 14:24
PROVIDERS: Visit Provider Obstetrics & Gynecology
DX: O20.0 Threatened abortion (principal); Z34.91 Encounter for supervision of normal pregnancy, unspecified, first trimester; Z20.9 Contact with and (suspected) exposure to unspecified communicable disease; Z3A.01 Less than 8 weeks gestation of pregnancy
CPT/HCPCS: 76817

== ENCOUNTER 2025-03-31 08:32 | Outpatient (CLI) | payer OTHER, SELFPAY ==
[2025-03-31 13:28] LABS: Chlamydia DNA Amplified* NOT DETECTED (No Detected); GC DNA Amplified* NOT DETECTED (No Detected)
[2025-04-02 02:41] LABS: HPV Source Cervix
[2025-04-02 19:08] LABS: HPV Genotype 16 by TMA Not Detected; HPV Genotype 18/45 by TMA Not Detected
[2025-04-08 09:25] LABS: Pap Test Digital Imaging Done; Pap Test Reviewed by Pathologi Done
== END 2025-03-31 08:33 | disposition home or self-care (01) ==
PROVIDERS: Visit Provider Registered Nurse
DX: Z34.91 Encounter for supervision of normal pregnancy, unspecified, first trimester (principal); Z3A.08 8 weeks gestation of pregnancy
CPT/HCPCS: 82565; 82570; 83020; 83021; 84156; 84450; 84460; 84520; 85660; 86592; 86703; 86704; 86706; 86762; 86787; 86803; 86850; 86870; 86880; 86900; 86901; 87086; 87340; 87491; 87591; 87624; 87625; 88141; 88142; 88175

== ENCOUNTER 2025-04-05 05:30 | Outpatient (CLI) | payer OTHER, SELFPAY | END 2025-04-05 05:31 | disposition home or self-care (01) | LOC: NFLDREF 04-07 16:39 | PROVIDERS: Visit Provider Registered Nurse | DX: Z34.91 Encounter for supervision of normal pregnancy, unspecified, first trimester (principal); N96 Recurrent pregnancy loss; Z3A.08 8 weeks gestation of pregnancy | CPT/HCPCS: 82570; 84156 ==